=== PATIENT | male | born 1945 | race Caucasian/White ===

== ENCOUNTER 2023-05-06 06:19 | Outpatient (OUT) | payer MEDICARE, OTHER, SELFPAY ==
[2023-05-06 07:04] LABS: Basophils Absolute Auto 0.1 10^3/uL (0.0-0.1); Basophils Percent Auto 1.3 % (0.2-2.0); Eosinophils Absolute Auto 0.6 10^3/uL (0.0-0.7); Eosinophils Percent Auto 12.3 % (0.9-7.0); Hematocrit 42.1 % (42.0-54.0); Hemoglobin 13.8 g/dL (14.0-18.0); Immature Granulocytes Abs Auto 0.02 10^3/uL (0.00-0.03); Immature Granulocytes Pct Auto 0.4 % (0.0-0.5); Lymphocytes Absolute Auto 0.9 10^3/uL (1.2-3.8); Lymphocytes Percent Auto 19.5 % (20.5-60.0); Mean Corpuscular HGB Conc 32.8 g/dL (29.9-35.2); Mean Corpuscular Hemoglobin 33.8 pg (25.9-34.0); Mean Corpuscular Volume 103.2 fL (80.0-94.0); Mean Platelet Volume 10.4 fL (9.5-13.5); Monocytes Absolute Auto 0.4 10^3/uL (0.3-0.8); Monocytes Percent Auto 9.3 % (1.7-12.0); Neutrophils Absolute Auto 2.7 10^3/uL (1.4-6.5); Neutrophils Percent Auto 57.2 % (43.0-75.0); Platelet Count 182 10^3/uL (150-450); Red Blood Count 4.08 10^6/uL (4.70-6.10); Red Cell Distribution Width 12.1 % (11.0-15.0); White Blood Count 4.7 10^3/uL (4.0-11.0)
[2023-05-06 07:20] LABS: Estimated Average Glucose 160 mg/dL; Glycohemoglobin A1C 7.2 % (4.5-6.2)
[2023-05-06 07:39] LABS: Alanine Aminotransferase 23 U/L (16-63); Albumin Globulin Ratio 1.6; Albumin Level 4.1 g/dL (3.4-5.0); Alkaline Phosphatase 87 U/L (46-116); Anion Gap 14.3; Aspartate Amino Transferase 9 U/L (15-37); BUN Creatinine Ratio 25.3; Bilirubin Total 0.4 mg/dL (0.2-1.0); Calcium 8.9 mg/dL (8.5-10.1); Carbon Dioxide 26.9 mmol/L (21.0-32.0); Chloride 104 mmol/L (98-107); Chol HDL Ratio 2.4; Cholesterol 146 mg/dL (<=200); Estimated GFR (African America >60 (>=60); Estimated GFR (Non-African Ame >60 (>=60); Globulin 2.5 g/dL; Glucose 182 mg/dL (74-106); HDL Cholesterol 62 mg/dL (40-60); Potassium 4.2 mmol/L (3.5-5.1); Sodium 141 mmol/L (136-145); Total Protein 6.6 g/dL (6.4-8.2); Triglycerides 76 mg/dL (<=150); VLDL CHOLESTEROL 15.2 mg/dL
[2023-05-06 07:47] LABS: Prostate Specific Antigen Scrn 2.76 ng/mL (<=4.00)
== END 2023-05-06 06:20 | disposition home or self-care (01) ==
LOC: LAB 06:23
PROVIDERS: PCP Family Medicine; Visit Provider Family Medicine
DX: E11.65 Type 2 diabetes mellitus with hyperglycemia (principal); I10 Essential (primary) hypertension; Z12.5 Encounter for screening for malignant neoplasm of prostate
CPT/HCPCS: 36415; 80053; 80061; 83036; 85025; G0103

== ENCOUNTER 2024-05-12 06:27 | Outpatient (OUT) | payer MEDICARE, OTHER, SELFPAY ==
--- OUTSIDE RECORDS SUMMARY | 2024-05-12 06:32 | XMS_ITS | CCD ---
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[employer] Name Role Phone REQUEST, DR MELGAR LISTED Admitting Unavaila ble REQUEST, DR MELGAR LISTED Attending Unavaila abrahan ROD, DR MISTY Betts Primary Care Unavailable REQUEST, DR MELGAR LISTED Consulting Unavaila ble MARCEL, DR MISTY Betts Admitting Unavailable ROD, DR MISTY Betts Attending Unavailable MARCEL, DR MISTY Betts Primary Care Unavailable ROD, DR MISTY Betts Consulting Unavailable ROD, DR MISTY Betts Admitting Unavailable ROD, DR MISTY Betts Attending Unavailable ROD, DR MISTY Betts Primary Care Unavailable ROD, DR MISTY Betts Consulting Unavailable REQUEST, NONE LISTED Admitting Unavaila ble REQUEST, DR MELGAR LISTED Attending Unavaila ble MARCEL, DR MISTY Betts Primary Care Unavailable Misty Rod Unavailable MISTY ROD Primary Care Physician [phone] Ed GARCIA Attending MISTY Diego Referring Unavailable Ed GARCIA Attending Unavailable Misty Rod MD Primary Care Provider PRISCILLA HEALY Attending Unavailable PRISCILLA HEALY Referring Unavailable PRISCILLA HEALY Referring Unavailable PRISCILLA HEALY Referring Unavailable JR. BARNES GEORGE C Attending Unavaila LISBETH Shook Attending Unavailable Misty Rod MD Primary Care Provider David Real DO Attending Provider Allergies Allergy Classification Reported Allergen(s) Allergy Type Date of Onset Reaction(s) Facility (12 sources) atorvastatin; Translations: [atorvastatin] Drug Allergy 8 Muscle pain (finding) [facility] Comment on above: Onset Date: 05/30/20 18 (2 sources) atorvastatin Drug Allergy 4 Other [facility] Medications Current Medications Medication Drug Class(es) Dates Sig (Normalized) Sig (Original) Blood-Glucose Meter (Accu-Chek Guide Glucose Meter) misc (3 sources) Start: 09-06-2023 Blood-Glucose Meter (Accu-Chek Guide Glucose Meter) misc Active 0 .Route 1 September 05, 2023 11:00pm As directed Start: 09-06-2023 Blood-Glucose Meter (Accu-Chek Guide Glucose Meter) mis Active 0 .Route 1 September 06, 2023 12:00am As directed cholecalciferol 0.025 mg oral capsule (3 sources) Vitamin D Start: 01-14-2018 take 1 capsule by mouth once daily Cholecalciferol (Vitamin D3) (Vitamin D3) 1,000 unit Capsule Active 1000 UNIT PO Daily January 13, 2018 11:00pm empagliflozin 10 mg oral tablet (2 sources) Sodium-Glucose Cotransporter 2 Inhibitor Start: 05-08-2024 take 1 tablet by mouth once daily in the morning Empagliflozin (Jardiance) 10 mg tablet Active 10 MG PO Every morning May 08, 2024 12:00am Start: 01-21-2024 take 1 mg by mouth o nce daily in the morning Jardiance 10 mg oral tablet mg tab(s), Oral, qAM, Refills(s) 0 Start Date: 01/21/24 Status: Ordered FreeStyle Lite Test (7 sources) Start: 11-07-2021 FreeStyle Lite Test FreeStyle Lite Test , 1 (one) Each daily - E11.65 # 100, 11/07/2021, Ref. x3. Active In Vitro daily - E11.65 for 0 E11.65 *Pick strength-form from [employer] for eRX* October, Active FreeStyle Lite Test - (7 sources) FreeStyle Lite T est - USE DIRECTED ONCE DAILY for 90 Active FreeStyle System (7 sources) Start: 07-12-2020 FreeStyle Syst em FreeStyle System , 1 (one) Kit test once daily # 1, 07/12/2020, No Refill. Active test once daily for 0 meter Jun, Active glyBURIDE 5 mg oral tablet (19 sources) Sulfonylurea Start: 01-17-2024 GlyBURIDE (Eqv -DiaBeta) 5 mg oral tablet 360 tab(s), 0 Refill(s), Refills(s) 0 Start Date: 01/17/24 Status: Ordered Start: 10-28-2023 End: 02-22-2024 Glyburide 5 mg tablet Active 0 .ROUTE .COMPLEX 360 February 22, 2024 12:09pm TAKE 2 TABLETS TWICE A DAY Start: 12-29-2021 take 1 tablet by melodie th twice daily glyBURIDE 5MG glyBURIDE 5MG, 2 (two) Tablet two times daily # 0, 12/29/2021, No Refill. Active Oral two times daily for 0 *Pick strength-form from [employer] for eRX* Dec, Active Start: 01-14-2018 End: 10-28-2023 take 2 tablets by mouth twice daily Glyburide 5 mg Tablet Discontinued 10 MG PO Twice daily January 13, 2018 11:00pm October 28, 2023 7:42am Start: 01-14-2018 End: 10-28-2023 take 10 mg by mouth twice daily Glyburide Discontinued 10 MG PO Twice daily January 14, 2018 12:00am October 28, 2023 8:42am hydrALAZINE hydrochloride 50 mg oral tablet (16 sources) Arteriolar Vasodilator Start: 02-09-2024 Hydralazine 50 mg tablet Active 0 .ROUTE .COMPLEX 180 February 09, 2024 7:27am TAKE 1 TABLET TWICE A DAY Start: 01-14-2018 End: 02-09-2024 take 1 tablet by mouth twice daily Hydralazine 50 mg Tablet Discontinued 50 MG PO Twice daily January 13, 2018 11:00pm February 09, 2024 7:27am take 1 tablet by melodie every twelve hours hydrALAZINE (Apresoline) 50 MG tablet Take 50 mg by mouth every 12 (twelve) hours. Active labetalol hydrochloride 200 mg oral tablet (14 sources) beta-Adrenergic Yanely Start: 01-17-2024 labeta lol 200 mg Tab 360 tab(s), 0 Refill(s), Refills(s) 0 Start Date: 01/17/24 Status: Ordered Start: 01-14-2018 take 2 tablets by mo [facility] twice daily Labetalol 200 mg Tablet Active 400 MG PO Twice daily January 13, 2018 11:00pm Start: 01-14-2018 take 400 mg by mouth twice chencho ly Labetalol Active 400 MG PO Twice daily January 14, 2018 12:00am take 1 tablet by melodie th every twelve hours labetalol (Normodyne) 200 MG tablet Take 200 mg by mouth every 12 (twelve) hours. Active lisinopril 40 mg oral tablet (13 sources) Angiotensin Converting Enzyme Inhibitor Start: 11-23-2023 take 1 tablet by mouth once daily Lisinopril 40 mg tablet Active 40 MG PO Daily November 22, 2023 11:00pm Lisinopril 40 MG TAKE 1 TABLET DAILY for 90 days Active metFORMIN hydrochloride 1000 mg / SITagliptin 50 mg oral tablet (14 sources) Biguanide, Dipeptidyl Peptidase 4 Inhibitor Start: 05-27-2022 take 50-1000 mg by mouth twice daily Janumet 50-1,000mg Janumet 50-1,000mg, 1 (one) Tablet two times daily # 180, 05/27/2022, Ref. x3. Active oral two times daily for 90 *Pick strength-form from [employer] for eRX* May, Active Start: 01-14-2018 End: 05-08-2024 take 50-1000 mg by mouth twice daily Sitagliptin Phos-Metformin (Janumet) 50-1,000 mg Tablet Discontinued 50 - 1000 MG PO Twice daily January 13, 2018 11:00pm May 08, 2024 11:51am take 1 tablet by melodie th every twelve hours SITagliptin-metFORMIN (Janumet) 50-1000 MG tablet Take 1 tablet by mouth every 12 (twelve) hours. Active pioglitazone 15 mg oral tablet (20 sources) Peroxisome Proliferator Receptor alpha Agonist, Peroxisome Proliferator Receptor gamma Agonist, Thiazolidinedione Start: 01-17-2024 pioglitazone 15 mg Tab 90 EA, 0 Refill(s), TAKE 1 TABLET BY MOUTH EVERY DAY, Refills(s) 0 Start Date: 01/17/24 Status: Ordered Start: 09-13-2023 End: 03-08-2024 take 1 tablet by mouth once daily Pioglitazone 15 mg tablet Discontinued 0 .ROUTE .COMPLEX 90 December 09, 2023 7:44am March 08, 2024 12:38pm TAKE 1 TABLET BY MOUTH EVERY DAY Start: 06-18-2021 End: 09-13-2023 take 1 tablet by mouth once daily in the morning Pioglitazone 15 mg tablet Discontinued 15 MG PO Every morning June 18, 2021 12:00am September 13, 2023 2:16pm polyethylene glycol 3350 18589 mg powder for oral solution (3 sources) Osmotic Laxative polyethylene gl ycol, PEG, 3350 (MiraLax) 17 GM/SCOOP powder Take 17 g by mouth in the morning. Active rosuvastatin calcium 20 mg oral tablet (14 sources) HMG-CoA Reductase Inhibitor Start: 8 End: 4 take 1 tablet by mouth once daily at bedtime Rosuvastatin 20 mg Tablet Active 20 MG PO Daily at bedtime January 13, 2018 11:00pm Saxagliptin-Metformin 5-1,000 mg tablet, ER multiphase 24 hr (1 source) Start: 4 take 1 tablet by mouth once daily Saxagliptin-Metformin 5-1,000 mg tablet, ER multiphase 24 hr Active 1 TAB PO Daily May 08, 2024 12:00am simvastatin 5 mg oral tablet (2 sources) HMG-CoA Reductase Inhibitor take 1 tablet by mouth at bedtime simvastatin (Zocor) 5 MG tablet Take 5 mg by mouth at bedtime Active Completed/Discontinued Medications Medication Drug Class(es) Dates Sig (Normalized) Sig (Original) acetaminophen 500 mg oral tablet (3 sources) Start: 01-29-2018 End: 06-18-2021 take 1 tablet by mouth every six hours Acetaminophen (Mapap Extra Strength) 500 mg Tablet Discontinued 500 MG PO Q6H 0 January 28, 2018 11:00pm June 18, 2021 11:29am acetaminophen 325 mg / oxyCODONE hydrochloride 5 mg oral tablet (9 sources) Opioid Agonist Start: 07-04-2021 End: 04-25-2024 take 1 tablet by mouth every six hours as needed for pain Oxycodone-Acetamino phen (Percocet) 5-325 mg tablet Discontinued 1 TAB PO Q6H as needed for left hip pain 15 01July 04, 2021 November 02, 2023 9:06am Start: 01-29-2018 End: 06-18-2021 take 1 tablet by mouth every three hours as needed for pain Oxycodone-Acetaminophen 5-325 mg Tablet Discontinued 1 TAB PO Q3H as needed for Pain scale 1-5 0 January 28, 2018 11:00pm June 18, 2021 11:30am ascorbic acid 500 mg oral tablet (3 sources) Vitamin C Start: 06-18-2021 End: 05-08-2024 take 1 tablet by mouth once daily Ascorbic Acid (Vitamin C) (Vitamin C) 500 mg Tablet Discontinued 500 MG PO Daily June 18, 2021 12:00am May 08, 2024 11:21am aspirin 81 mg delayed release oral tablet (6 sources) Platelet Aggregation Inhibitor, Nonsteroidal Anti-inflammatory Drug Start: 01-29-2018 End: 04-25-2024 take 1 tablet by mouth twice daily Aspirin 81 mg Tablet,Delayed Release (Dr/Ec) Discontinued 81 MG PO Twice daily 0 January 28, 2018 11:00pm June 18, 2021 11:29am dapagliflozin 10 mg oral tablet (20 sources) Sodium-Glucose Cotransporter 2 Inhibitor Start: 01-14-2018 End: 05-08-2024 take 1 tablet by mouth once daily in the morning Dapagliflozin Propanediol (Farxiga) 10 mg tablet Discontinued 10 MG PO Every morning November 23, 2023 12:50pm May 08, 2024 11:51am take 5 mg by mouth once daily da pagliflozin (Farxiga) 5 MG Take 5 mg by mouth 1 (one) time each day at the same time. Active hydrOXYzine pamoate 50 mg oral capsule (3 sources) Antihistamine Start: 01-29-2018 End: 06-18-2021 take 1 capsule by mouth every six hours as needed for muscle spasms Hydroxyzine Pamoate 50 mg Capsule Discontinued 50 MG PO Q6H as needed for Muscle Spasm 0 January 28, 2018 11:00pm June 18, 2021 11:33am HYLAN G-F 20 (7 sources) Start: 10-23-2016 Synvisc October, 6 mL methylPREDNISolone (7 sources) Corticosteroid Start: 09-21-2016 Depo-Medrol 40 mg Sep, 1 mL naproxen sodium 220 mg oral tablet (7 sources) Nonsteroidal Anti-inflammatory Drug take 1 tablet by mouth every twelve hours Aleve 220 MG 1 tablet as needed Orally every 12 hrs Not-Taking/PRN [place] 5-Wqt-Wen-Fish Oil (Fish Oil) 1,000 mg (120 mg-180 mg) Capsule (3 sources) Start: 01-14-2018 End: 06-18-2021 take 1 capsule by mouth once daily [place] 6-Phr-Rcf-Fish Oil (Fish Oil) 1,000 mg (120 mg-180 mg) Capsule Discontinued 1000 MG PO Daily January 13, 2018 11:00pm June 18, 2021 11:33am Start: 01-14-2018 End: 06-18-2021 take 1 capsule by mouth once daily [place] 1-Wzh-Lvv-Fish Oil (Fish Oil) 1,000 mg (120 mg-180 mg) Capsule Discontinued 1000 MG PO Daily January 14, 2018 12:00am June 18, 2021 12:33pm quinapril 40 mg oral tablet (13 sources) Angiotensin Converting Enzyme Inhibitor Start: 01-14-2018 End: 04-25-2024 take 1 tablet by mouth once daily at bedtime Quinapril 40 mg Tablet Discontinued 40 MG PO Daily at bedtime January 13, 2018 11:00pm November 23, 2023 12:27pm Zinc (3 sources) Start: 06-18-2021 End: 11-23-2023 take 1 tablet by mouth once daily Zinc 50 mg Tablet Discontinued 50 MG PO Daily June 18, 2021 12:00am November 23, 2023 12:27pm Start: 06-18-2021 End: 11-23-2023 take 50 mg by mouth once daily Zinc Discontinued 50 MG PO Daily June 18, 2021 1:00am November 23, 2023 1:27pm Problems Active Problems Problem Classification Problem Date Documented Date Episodic/Chronic Abdominal hernia (1 source) Hiatal hernia 01-17-2024 Episodic Diabetes mellitus with complications (16 sources) Type 2 diabetes mellitus with hyperglycemia; Translations: [Type 2 diabetes mellitus] Onset: 08-13-2022 Chronic Diabetes mellitus without complication (4 sources) Type 2 diabetes mellitus; Translations: [Diabetes mellitus] Onset: 04-19-2023 01-17-2024 Chronic Disorders of lipid metabolism (13 sources) Hyperlipidemia, unspecified; Translations: [Hypercholesterolemia] Onset: 04-02-2022 Chronic Esophageal disorders (1 source) Gastroesophageal reflux disease 01-17-2024 Chronic Essential hypertension (20 sources) Essential (primary) hypertension; Translations: [Essential hypertension] Onset: 04-04-2022 Chronic Hyperplasia of prostate (8 sources) Benign prostatic hyperplasia; Translations: [Benign prostatic hyperplasia without lower urinary tract symptoms] Onset: 01-21-2024 Chronic Open wounds of extremities (4 sources) Laceration of left ring finger; Translations: [Laceration without foreign body of left ring finger without damage to nail, initial encounter] 11-02-2023 Episodic Osteoarthritis (14 sources) Osteoarthritis of hip; Translations: [Unilateral primary osteoarthritis, right hip] Onset: 04-19-2023 01-17-2024 Chronic Other aftercare (7 sources) Patient encounter status; Translations: [Aftercare following joint replacement surgery] Chronic Other connective tissue disease (7 sources) History of total hip arthroplasty; Translations: [Presence of right artificial hip joint] Chronic Other ear and sense organ disorders (10 sources) Asymmetrical sensorineural hearing loss; Translations: [Unspecified sensorineural hearing loss] Onset: 04-19-2023 04-19-2023 Chronic Other ear and sense organ disorders (3 sources) Hearing loss; Translations: [Unspecified hearing loss, unspecified ear] Onset: 04-19-2023 04-19-2023 Chronic Other nervous system disorders (10 sources) Chronic pain; Translations: [Other chronic pain] Onset: 04-19-2023 04-19-2023 Chronic Other nervous system disorders (10 sources) Difficulty walking; Translations: [Difficulty in walking, not elsewhere classified] Onset: 04-19-2023 04-19-2023 Chronic Other non-epithelial cancer of skin (1 source) Malignant neoplasm of skin 01-17-2024 Episodic Other non-traumatic joint disorders (7 sources) Pain in left knee; Translations: [Pain in left knee] Episodic Other non-traumatic joint disorders (3 sources) Anterior knee pain; Translations: [Pain in right knee] 06-02-2023 Episodic Comment on above: Problem List clean-u p per request of Phys. EHR Cmte Other non-traumatic joint disorders (1 source) Mass of shoulder region; Translations: [Other specified joint disorders, right shoulder] 05-11-2024 Episodic Other non-traumatic joint disorders (1 source) Pain in left shoulder; Translations: [Left shoulder pain] 05-10-2024 Episodic Other non-traumatic joint disorders (1 source) Other specified joint disorders, right shoulder; Translations: [Other symptoms referable to joint, shoulder region] 05-11-2024 Episodic Other screening for suspected conditions (not mental disorders or infectious disease) (7 sources) Encounter for screening for malignant neoplasm of prostate; Translations: [Raised prostate specific antigen] Onset: 01-21-2024 Episodic Otitis media and related conditions (8 sources) Postmastoidectomy complication; Translations: [Other disorders following mastoidectomy, unspecified ear] Onset: 04-19-2023 04-19-2023 Episodic Residual codes; unclassified (1 source) Family history of cancer; Translations: [Family history of malignant neoplasm of prostate] Onset: 01-21-2024 Episodic Residual codes; unclassified (1 source) Family history of prostate cancer 01-21-2024 Episodic Past or Other Problems Problem Classification Problem Date Documented Da te Episodic/Chronic Other connective tissue disease (17 sources) History of total knee arthroplasty; Translations: [Presence of left artificial knee joint] Onset: 04-19-2023 Resolved: 04-19-2023 04-19-2023 Chronic Other ear and sense organ disorders (10 sources) Bilateral tinnitus; Translations: [Tinnitus, bilateral] Onset: 04-19-2023 04-19-2023 Episodic Other ear and sense organ disorders (3 sources) Impacted cerumen in left ear; Translations: [Impacted cerumen, left ear] Onset: 04-21-2023 04-21-2023 Episodic Other non-traumatic joint disorders (3 sources) Pain in left knee; Translations: [Pain in joint, lower leg] Onset: 04-19-2023 04-19-2023 Episodic Results Test Name Value Interpretation Reference Range Facility No Panel Informationon 10-31 Prostate Specific Antigen Screen 3.74 ng/mL <=4.00 [facility] MR FEMUR RIGHT W AND WO IV C [facility] 09-02-2023 MR FEMUR RIGHT W AND WO IV CONTRAST MR FEMUR RIGHT W AND WO IV CONTRAST HISTORY: Possible bone mass. TECHNIQUE: Routine MRI of the right femur, with and without contrast. Given 20 mL of intravenous ProHance. COMPARISON: Radiographs 08/30/2023, 08/21/2022, 08/22/2021. RESULT: No evidence for fracture or pathologic marrow infiltration. Small area of cortical thickening involving the medial cortex of the distal femur diaphysis suggestive of chronic process, could relate to remote healed fracture, prior stress reaction, etc. This appears unchanged compared to the radiographs from 2023 and 2022. No associated soft tissue mass. Artifact from right knee arthroplasty. Partially imaged artifact within the right proximal femur. No suspicious enhancement after contrast. Visualized tendons appear intact. Visualized musculature unremarkable. Subcutaneous tissues unremarkable. IMPRESSION: No suspicious findings. No suspicious enhancement. ELECTRONICALLY SIGNED BY: Dewey Paz MD Normal Not Available CBC AUTO DIFFon 08-10-2022 BASO # 0.1 103/ul Normal 0.0-0.1 [facility] Comment on above: Performed By: #### C BC #### [facility] [address] [place] [address] Dr. Monique Sewell Basophils/100 WBC (Bld) 1.3 % Normal 0.2-2.0 [facility] Comment on above: Performed By: #### C BC #### [facility] [address] [place] [address] Dr. Monique Sewell EO # 0.2 103/ul Normal 0.0-0.7 [facility] Comment on above: Performed By: #### C BC #### [facility] [address] [place] [address] Dr. Monique Sewell Eosinophils/100 WBC (Bld) 4.8 % Normal 0.9-7.0 [facility] Comment on above: Performed By: #### C BC #### [facility] [address] [place] [address] Dr. Monique Sewell Erythrocyte distribution width (RBC) [Ratio] 12.1 % Normal 11.0-15.0 [facility] Comment on above: Performed By: #### C BC #### [facility] [address] [place] [address] Dr. Monique Sewell Hematocrit (Bld) [Volume fraction] 40.8 % Critically low 42.0-54.0 [facility] Comment on above: Performed By: #### C BC #### [facility] [address] [place] [address] Dr. Monique Sewell Hemoglobin (Bld) [Mass/Vol] 13.9 g/dL Critically low 14.0-18.0 [facility] Comment on above: Performed By: #### C BC #### [facility] [address] [place] [address] Dr. Monique Sewell IG # 0.01 10e3/ul Normal 0.00-0.03 [facility] Comment on above: Performed By: #### C BC #### [facility] [address] [place] [address] Dr. Monique Sewell IG % 0.3 % Normal 0.0-0.5 [facility] Comment on above: Performed By: #### C BC #### [facility] [address] [place] [address] Dr. Monique Sewell LYMPH # 1.1 103/ul Critically low 1.2-3.8 [facility] Comment on above: Performed By: #### C BC #### [facility] [address] [place] [address] Dr. Monique Sewell Lymphocytes/100 WBC (Bld) 26.9 % Normal 20.5-60.0 [facility] Comment on above: Performed By: #### C BC #### [facility] [address] [place] [address] Dr. Monique Sewell MANUAL DIFF REQ NO [facility] Comment on above: Performed By: #### C BC #### [facility] [address] [place] [address] Dr. Monique Sewell MCH (RBC) [Entitic mass] 33.9 pg Normal 25.9-34.0 [facility] Comment on above: Performed By: #### C BC #### [facility] [address] [place] [address] Dr. Monique Sewell MCHC (RBC) [Mass/Vol] 34.1 g/dL Normal 29.9-35.2 [facility] Comment on above: Performed By: #### C BC #### [facility] [address] [place] [address] Dr. Monique Sewell MCV (RBC) [Entitic vol] 99.5 fL Critically high 80.0-94.0 [facility] Comment on above: Performed By: #### C BC #### [facility] [address] [place] [address] Dr. Monique Sewell MONO # 0.4 103/ul Normal 0.3-0.8 [facility] Comment on above: Performed By: #### C BC #### [facility] [address] [place] [address] Dr. Monique Sewell Monocytes/100 WBC (Bld) 10.1 % Normal 1.7-12.0 [facility] Comment on above: Performed By: #### C BC #### [facility] [address] [address] [address] Monique Sewell NEUT # 2.3 103/ul Normal 1.4-6.5 [facility] Comment on above: Performed By: #### C BC #### [facility] [address] [place] [address] Dr. Monique Sewell Neutrophils/100 WBC (Bld) 56.6 % Normal 43.0-75.0 [facility] Comment on above: Performed By: #### C BC #### [facility] [address] [place] [address] Dr. Monique Sewell Platelet mean volume (Bld) [Entitic vol] 10.5 fL Normal 9.5-13.5 [facility] Comment on above: Performed By: #### C BC #### [facility] [address] [place] [address] Dr. Monique Sewell PLT 170 103/ul Normal 150-450 [facility] Comment on above: Performed By: #### C BC #### [facility] [address] [place] [address] Dr. Monique Sewell RBC 4.10 106/ul Critically low 4.70-6.10 [facility] Comment on above: Performed By: #### C BC #### [facility] [address] [place] [address] Dr. Monique Sewell WBC 4.0 103/ul Normal 4.0-11.0 [facility] Comment on above: Performed By: #### C BC #### [facility] [address] [place] [address] Dr. Monique Sewell GLYCOHEMOGLOBIN A1Con 2022 ADA RECOMMENDATION SEE BELOW Normal [facility] Comment on above: Result Comment: ADA RECOMMENDED LIMIT 4.0 - 6.0 ADA THERAPEUTIC TARGET < 7.0 ACTION SUGGESTED > 7.0 Performed By: #### A 1C #### [facility] [address] [place] [address] Dr. Monique Sewell Glucose [Mass/Vol] 143 mg/dL Normal [facility] Comment on above: Performed By: #### A 1C #### [facility] [address] [place] [address] Dr. Monique Sewell HbA1c (Bld) [Mass fraction] 6.6 % Critically high 4.5-6.2 [facility] Comment on above: Performed By: #### A 1C #### [facility] [address] [place] [address] Dr. Monique Sewell PROF 14(COMP METB)on 023 Albumin [Mass/Vol] 4.2 g/dL Normal 3.4-5.0 [facility] Comment on above: Performed By: #### C MP #### [facility] [address] [place] [address] Dr. Monique Sewell Albumin/Globulin [Mass ratio] 1.7 {ratio} Normal [facility] Comment on above: Performed By: #### C MP #### [facility] [address] [place] [address] Dr. Monique Sewell ALP [Catalytic activity/Vol] 87 U/L Normal 46-116 [facility] Comment on above: Performed By: #### C MP #### [facility] [address] [place] [address] Dr. Monique Sewell ALT [Catalytic activity/Vol] 23 U/L Normal 16-63 [facility] Comment on above: Performed By: #### C MP #### [facility] [address] [place] [address] Dr. Monique Sewell Anion gap [Moles/Vol] 10.9 mmol/L Normal [facility] Comment on above: Performed By: #### C MP #### [facility] [address] [place] [address] Dr. Monique Sewell AST [Catalytic activity/Vol] 18 U/L Normal 15-37 [facility] Comment on above: Performed By: #### C MP #### [facility] [address] [address] [address] Monique Sewell Bilirubin [Mass/Vol] 0.5 mg/dL Normal 0.2-1.0 [facility] Comment on above: Performed By: #### C MP #### [facility] [address] [address] [address] Monique Sewell Calcium [Mass/Vol] 9.3 mg/dL Normal 8.5-10.1 [facility] Comment on above: Performed By: #### C MP #### [facility] [address] [address] [address] Monique Sewell Chloride [Moles/Vol] 104 mmol/L Normal 98-107 [facility] Comment on above: Performed By: #### C MP #### [facility] [address] [address] [address] Monique Sewell CO2 [Moles/Vol] 29.3 mmol/L Normal 21.0-32.0 [facility] Comment on above: Performed By: #### C MP #### [facility] [address] [place] [address] Dr. Monique Sewell Creatinine [Mass/Vol] 0.91 mg/dL Normal 0.70-1.30 [facility] Comment on above: Performed By: #### C MP #### [facility] [address] [address] [address] Monique Sewell EGFR-AF SWISS >60 Normal >=60 [facility] Comment on above: Performed By: #### C MP #### [facility] [address] [address] [address] Monique Sewell EGFR-NON AF SWISS >60 Normal >=60 [facility] Comment on above: Performed By: #### C MP #### [facility] [address] [place] [address] Dr. Monique Sewell Globulin (S) [Mass/Vol] 2.4 g/dL Normal [facility] Comment on above: Performed By: #### C MP #### [facility] [address] [address] [address] Monique Sewell Glucose [Mass/Vol] 146 mg/dL Critically high 74-106 [facility] Comment on above: Performed By: #### C MP #### [facility] [address] [address] [address] Monique Sewell Potassium [Moles/Vol] 4.2 mmol/L Normal 3.5-5.1 [facility] Comment on above: Performed By: #### C MP #### [facility] [address] [address] [address] Monique Sewell Protein [Mass/Vol] 6.6 g/dL Normal 6.4-8.2 [facility] Comment on above: Performed By: #### C MP #### [facility] [address] [address] [address] Monique Sewell Sodium [Moles/Vol] 140 mmol/L Normal 136-145 [facility] Comment on above: Performed By: #### C MP #### [facility] [address] [address] [address] Monique Sewell Urea nitrogen [Mass/Vol] 20.0 mg/dL Critically high 7.0-18.0 [facility] Comment on above: Performed By: #### C MP #### [facility] [address] [address] [address] Monique Sewell Urea nitrogen/Creatinine [Mass ratio] 22.0 mg/mg Normal [facility] Comment on above: Performed By: #### C MP #### [facility] [address] [address] [address] Monique Sewell CBC AUTO DIFFon 04-02-2022 BASO # 0.0 103/ul Normal 0.0-0.1 [facility] Comment on above: Performed By: #### C BC #### [facility] [address] [address] [address] Monique Sewell Basophils/100 WBC (Bld) 0.8 % Normal 0.2-2.0 [facility] Comment on above: Performed By: #### C BC #### [facility] [address] [place] [address] Dr. Monique Sewell EO # 0.4 103/ul Normal 0.0-0.7 [facility] Comment on above: Performed By: #### C BC #### [facility] [address] [place] [address] Dr. Monique Sewell Eosinophils/100 WBC (Bld) 8.8 % Critically high 0.9-7.0 [facility] Comment on above: Performed By: #### C BC #### [facility] [address] [place] [address] Dr. Mnoique Sewell Erythrocyte distribution width (RBC) [Ratio] 12.3 % Normal 11.0-15.0 [facility] Comment on above: Performed By: #### C BC #### [facility] [address] [place] [address] Dr. Monique Sewell Hematocrit (Bld) [Volume fraction] 41.2 % Critically low 42.0-54.0 [facility] Comment on above: Performed By: #### C BC #### [facility] [address] [place] [address] Dr. Monique Sewell Hemoglobin (Bld) [Mass/Vol] 13.5 g/dL Critically low 14.0-18.0 [facility] Comment on above: Performed By: #### C BC #### [facility] [address] [place] [address] Dr. Monique Sewell IG # 0.02 10e3/ul Normal 0.00-0.03 [facility] Comment on above: Performed By: #### C BC #### [facility] [address] [place] [address] Dr. Monique Sewell IG % 0.4 % Normal 0.0-0.5 [facility] Comment on above: Performed By: #### C BC #### [facility] [address] [place] [address] Dr. Monique Sewell LYMPH # 1.3 103/ul Normal 1.2-3.8 [facility] Comment on above: Performed By: #### C BC #### [facility] [address] [address] [address] Monique Sewell Lymphocytes/100 WBC (Bld) 25.8 % Normal 20.5-60.0 [facility] Comment on above: Performed By: #### C BC #### [facility] [address] [place] [address] Dr. Monique Sewell MANUAL DIFF REQ NO Normal [facility] Comment on above: Performed By: #### C BC #### [facility] [address] [address] [address] Monique Sewell MCH (RBC) [Entitic mass] 33.5 pg Normal 25.9-34.0 [facility] Comment on above: Performed By: #### C BC #### [facility] [address] [place] [address] Dr. Monique Sewell MCHC (RBC) [Mass/Vol] 32.8 g/dL Normal 29.9-35.2 [facility] Comment on above: Performed By: #### C BC #### [facility] [address] [place] [address] Dr. Monique Sewell MCV (RBC) [Entitic vol] 102.2 fL Critically high 80.0-94.0 [facility] Comment on above: Performed By: #### C BC #### [facility] [address] [place] [address] Dr. Monique Sewell MONO # 0.5 103/ul Normal 0.3-0.8 [facility] Comment on above: Performed By: #### C BC #### [facility] [address] [place] [address] Dr. Monique Sewell Monocytes/100 WBC (Bld) 9.2 % Normal 1.7-12.0 [facility] Comment on above: Performed By: #### C BC #### [facility] [address] [place] [address] Dr. Monique Sewell NEUT # 2.7 103/ul Normal 1.4-6.5 [facility] Comment on above: Performed By: #### C BC #### [facility] [address] [place] [address] Dr. Monique Sewell Neutrophils/100 WBC (Bld) 55.0 % Normal 43.0-75.0 [facility] Comment on above: Performed By: #### C BC #### [facility] [address] [address] [address] Monique Sewell Platelet mean volume (Bld) [Entitic vol] 10.3 fL Normal 9.5-13.5 [facility] Comment on above: Performed By: #### C BC #### [facility] [address] [address] [address] Monique Sewell PLT 191 103/ul Normal 150-450 [facility] Comment on above: Performed By: #### C BC #### [facility] [address] [address] [address] Monique Sewell RBC 4.03 106/ul Critically low 4.70-6.10 [facility] Comment on above: Performed By: #### C BC #### [facility] [address] [address] [address] Monique Sewell WBC 4.9 103/ul Normal 4.0-11.0 [facility] Comment on above: Performed By: #### C BC #### [facility] [address] [address] [address] Monique Sewell GLYCOHEMOGLOBIN A1Con 2021 ADA RECOMMENDATION SEE BELOW Normal [facility] Comment on above: Result Comment: ADA RECOMMENDED LIMIT 4.0 - 6.0 ADA THERAPEUTIC TARGET < 7.0 ACTION SUGGESTED > 7.0 Performed By: #### A 1C #### [facility] [address] [address] [address] Monique Sewell Glucose [Mass/Vol] 148 mg/dL Normal [facility] Comment on above: Performed By: #### A 1C #### [facility] [address] [address] [address] Monique Sewell HbA1c (Bld) [Mass fraction] 6.8 % Critically high 4.5-6.2 [facility] Comment on above: Performed By: #### A 1C #### [facility] [address] [address] [address] Monique Sewell LIPID PROFILEon 04-02-2022 CHOL-HDL RATIO NORM SEE BELOW Normal [facility] Comment on above: Result Comment: 3.3 - 4.4 LOW RISK 4.4 - 7.1 AVERAGE RISK 7.1 - 11.0 MODERATE RISK >11.0 HIGH RISK Performed By: #### L IPID, CMP #### [facility] [address] [address] [address] Monique Sewell Cholesterol [Mass/Vol] 135 mg/dL Normal <=200 [facility] Comment on above: Performed By: #### L IPID, CMP #### [facility] [address] [address] [address] Monique Sewell Cholesterol in HDL [Mass/Vol] 79 mg/dL Critically high 40-60 [facility] Comment on above: Performed By: #### L IPID, CMP #### [facility] [address] [place] [address] Dr. Moniuqe Sewell Cholesterol in LDL [Mass/Vol] 44.4 mg/dL Normal [facility] Comment on above: Performed By: #### L IPID, CMP #### [facility] [address] [place] [address] Dr. Monique Sewell Cholesterol.total/Ch olesterol in HDL [Mass ratio] 1.7 {ratio} Normal [facility] Comment on above: Performed By: #### L IPID, CMP #### [facility] [address] [place] [address] Dr. Monique Sewell HDL NORMAL > or = 60 mg/dl - LOW CARDIOVASCULAR RISK <40 mg/dl - HIGH CARDIOVASCULAR RISK Normal [facility] Comment on above: Performed By: #### L IPID, CMP #### [facility] [address] [place] [address] Dr. Monique Sewell LDL CALC NORMAL SEE BELOW Normal [facility] Comment on above: Result Comment: <100 mg/dl OPTIMAL 100 - 129 mg/dl NEAR OR ABOVE OPTIMAL 130 - 159 mg/dl BORDERLINE HIGH 160 - 189 mg/dl HIGH >190 mg/dl VERY HIGH Performed By: #### L IPID, CMP #### [facility] [address] [address] [address] Monique Sewell Triglyceride [Mass/Vol] 58 mg/dL Normal <=150 [facility] Comment on above: Performed By: #### L IPID, CMP #### [facility] [address] [address] [address] Monique Sewell VLDL CALC 11.6 mg/dL Normal [facility] Comment on above: Performed By: #### L IPID, CMP #### [facility] [address] [address] [address] Monique Sewell PROF 14(COMP METB)on 022 Albumin [Mass/Vol] 4.1 g/dL Normal 3.4-5.0 [facility] Comment on above: Performed By: #### L IPID, CMP #### [facility] [address] [place] [address] Dr. Monique Sewell Albumin/Globulin [Mass ratio] 1.7 {ratio} Normal [facility] Comment on above: Performed By: #### L IPID, CMP #### [facility] [address] [address] [address] Monique Sewell ALP [Catalytic activity/Vol] 84 U/L Normal 46-116 [facility] Comment on above: Performed By: #### L IPID, CMP #### [facility] [address] [place] [address] Dr. Monique Sewell ALT [Catalytic activity/Vol] 28 U/L Normal 16-63 [facility] Comment on above: Performed By: #### L IPID, CMP #### [facility] [address] [place] [address] Dr. Monique Sewell Anion gap [Moles/Vol] 10.8 mmol/L Normal [facility] Comment on above: Performed By: #### L IPID, CMP #### [facility] [address] [address] [address] Monique Sewell AST [Catalytic activity/Vol] 14 U/L Critically low 15-37 [facility] Comment on above: Performed By: #### L IPID, CMP #### [facility] [address] [address] [address] Monique Sewell Bilirubin [Mass/Vol] 0.4 mg/dL Normal 0.2-1.0 [facility] Comment on above: Performed By: #### L IPID, CMP #### [facility] [address] [place] [address] Dr. Monique Sewell Calcium [Mass/Vol] 9.2 mg/dL Normal 8.5-10.1 [facility] Comment on above: Performed By: #### L IPID, CMP #### [facility] [address] [place] [address] Dr. Monique Sewell Chloride [Moles/Vol] 105 mmol/L Normal 98-107 [facility] Comment on above: Performed By: #### L IPID, CMP #### [facility] [address] [place] [address] Dr. Monique Sewell CO2 [Moles/Vol] 28.3 mmol/L Normal 21.0-32.0 [facility] Comment on above: Performed By: #### L IPID, CMP #### [facility] [address] [place] [address] Dr. Monique Sewell Creatinine [Mass/Vol] 0.92 mg/dL Normal 0.70-1.30 [facility] Comment on above: Performed By: #### L IPID, CMP #### [facility] [address] [place] [address] Dr. Monique Sewell EGFR-AF SWISS >60 Normal >=60 [facility] Comment on above: Performed By: #### L IPID, CMP #### [facility] [address] [place] [address] Dr. Monique Sewell EGFR-NON AF SWISS >60 Normal >=60 [facility] Comment on above: Performed By: #### L IPID, CMP #### [facility] [address] [place] [address] Dr. Monique Sewell Globulin (S) [Mass/Vol] 2.4 g/dL Normal [facility] Comment on above: Performed By: #### L IPID, CMP #### [facility] [address] [address] [address] Monique Sewell Glucose [Mass/Vol] 151 mg/dL Critically high 74-106 [facility] Comment on above: Performed By: #### L IPID, CMP #### [facility] [address] [place] [address] Dr. Monique Sewell Potassium [Moles/Vol] 4.1 mmol/L Normal 3.5-5.1 [facility] Comment on above: Performed By: #### L IPID, CMP #### [facility] [address] [place] [address] Dr. Monique Sewell Protein [Mass/Vol] 6.5 g/dL Normal 6.4-8.2 [facility] Comment on above: Performed By: #### L IPID, CMP #### [facility] [address] [place] [address] Dr. Monique Sewell Sodium [Moles/Vol] 140 mmol/L Normal 136-145 [facility] Comment on above: Performed By: #### L IPID, CMP #### [facility] [address] [place] [address] Dr. Monique Sewell Urea nitrogen [Mass/Vol] 12.0 mg/dL Normal 7.0-18.0 [facility] Comment on above: Performed By: #### L IPID, CMP #### [facility] [address] [place] [address] Dr. Monique Sewell Urea nitrogen/Creatinine [Mass ratio] 13.0 mg/mg Normal [facility] Comment on above: Performed By: #### L IPID, CMP #### [facility] [address] [place] [address] Dr. Monique Sewell GLYCOHEMOGLOBIN A1Con 2021 ADA RECOMMENDATION SEE BELOW Normal [facility] Comment on above: Result Comment: ADA RECOMMENDED LIMIT 4.0 - 6.0 ADA THERAPEUTIC TARGET < 7.0 ACTION SUGGESTED > 7.0 Performed By: #### D ATA1C #### [facility] [address] [place] [address] Dr. Monique Sewell Glucose [Mass/Vol] 157 mg/dL Normal [facility] Comment on above: Performed By: #### D ATA1C #### [facility] [address] [address] [address] Monique Sewell HbA1c (Bld) [Mass fraction] 7.1 % Critically high 4.5-6.2 [facility] Comment on above: Performed By: #### D ATA1C #### [facility] [address] [address] [address] Monique Sewell US Venous, Unilat, Lower Ext Righton 07-11-2021 US Venous, Unilat, Lower Ext Right HISTORY: Calf pain FINDINGS: The deep venous system of the right lower extremity exhibits full compressibility and normal flow augmentation. These specifically include the common femoral, superficial femoral, popliteal and visualization anterior tibialis, posterior tibialis and peroneal veins. No evidence of deep venous thrombosis is present. Greater saphenous vein is patent. Unremarkable popliteal fossa. Complex 1.0 x 2.5 x 2.5 cm fluid collection lateral to the patella, possible postsurgical hematoma/seroma (conceivably bursitis). IMPRESSION: 1. No deep venous thrombosis. 2. Complex fluid collection corresponding with the patient's symptoms, bursitis versus postsurgical hematoma. Report reported and signed by Thom Mendez on 07/11/2021 1239 Normal [facility] Tissue Packer Glucose Poct Glucometerson 0 07-04-2021 Commemt1 Glu2: Cleaned Meter Normal [facility] Comment on above: Result Comment: PERF ORMED BY: [place] [address] PATHOLOGIST DIE ENGRAVER CARMEN NICOLE M.D. Performed By: #### O VALDEMAR TSH, OUTREACH GLYCO, PSA OUTREACH #### [address] Glucose [Mass/Vol] 351 mg/dL Normal [facility] Comment on above: Result Comment: Mart Glucose Reference Range is dependent on time and content of last meal. Glucose of more than 200 mg/dL in a nonstressed, ambulatory subject supports the diagnosis of Diabetes Mellitus. Performed By: #### O JANESEACH TSH, OUTREACH GLYCO, PSA OUTREACH #### [facility] [address] [id number] [facility] Glucose [Mass/Vol] 184 mg/dL Normal [facility] Comment on above: Result Comment: [facility] Glucose Reference Range is dependent on time and content of last meal. Glucose of more than 200 mg/dL in a nonstressed, ambulatory subject supports the diagnosis of Diabetes Mellitus. PERFORMED BY: [facility] [address] [place] [address] PATHOLOGIST DIE ENGRAVER CARMEN NICOLE M.D. Performed By: #### O UTREA TSH, OUTREACH GLYCO, PSA OUTREACH #### [facility] [address] [id number] [facility] Siva 07-04-2021 L Specimen: [id number] Received: 07/04/21 Status: ECHO Ocasio Num: [id number] Spec Type: Surgical Subm Dr: Pedro Barnes Jr, DO Tissues: A Gross Only (R KNEE) Procedures: Level 1 Gross Patient Age/Sex Location Account Attending Physician MooseLele ford 76/M 4N [id number] Pedro Barnes Jr, DO SPEC NUM: [id number] RECD: 07/04/21 STATUS: ECHO OCASIO NUM: [id number] VIDA: 07/04/21 DR: Pedro Barnes Jr, ENTERED: 07/04/[address]: EDWARD TYPE: Surgical DEPT: S ORDERED: Level 1 Gross ORDERED: Level 1 Gross Pathological Diagnosis Bone and soft tissue, right knee, arthroplasty: - Consistent with degenerative joint disease (see Gross Description) Clinical Information Degenerative joint disease, right knee Gross Description Received in formalin labeled with the patient's name, number and bone and tissue right knee are multiple fragments of bone, tibial plateau, femoral condyles, dense philippe meniscus, and fatty yellow tissue aggregating 13.7 x 12.6 x 2.8 cm. The articular surface demonstrates philippe-red superficial erosion and granularity comprising 90% of the articular cartilage. Eburnation is identified comprising 10% of the articular cartilage. Scant osteophyte formation is identified. Sectioning of the bone reveals philippe, focally sclerotic bony cut surfaces with no well-defined masses or lesions identified. No sections are submitted for microscopic evaluation, gross examination only. (FLOR/CECILE) Microscopic Description Gross examination only. [id number] Specimen: [id number] Received: 07/04/21 Status: ECHO Fordepati Num: [id number] Spec Type: Surgical Subm Dr: Pedro Barnes Jr, DO Tissues: A Gross Only (R KNEE) Procedures: Level 1 Gross Patient: Lele Gaspar [id number] (Continued) Signed (signature on file) Carmen Nicole MD 07/04/21 1557 Normal [facility] XR knee RT 2Von 07-04-2021 XR knee RT 2V [address] [address] XRay Report Signed Patient: Lele Gaspar MR#: [id number] : 1945 Acct:[id number] Age/Sex: 76 / M ADM Date: 07/04/21 Loc: Room: 9O4669-9 Type: REG SDC Attending Dr: Pedro Barnes Jr, DO Ordering Provider: Pedro Barnes Jr, DO Date of Service: 07/04/21 XR/XR knee RT 2V: Total or partial knee, do in PACU Copies to: Pedro Barnes Jr, DO Exam: Right knee 2 views. Reason for exam: Postop knee arthroplasty. FINDINGS: Soft tissues demonstrate postoperative changes. Arthroplasty in place without radiographic complication. No acute bony process. XR/XR knee RT 2V IMPRESSION: No hardware complication. Impression dictated by: Thom Hayes Jr., D.O.07/04/2021 12:39 PM Dictation Location: [address] [place] [address] Transcribed By: [facility] 07/04/21 1239 Dictated By: Thom Hayes Jr, DO 07/04/21 1237 Signed By: 07/04/21 1239 Normal [facility] COVID-19 FRMCon 07-02-2021 SARS-CoV-2 (COVID-19) RNA KEYLA+probe Ql (Unsp spec) Negative Normal Negative [facility] Comment on above: Order Comment: Healt hcare Worker?: N Result Comment: Testing for SARS-CoV-2 by RT-PCR This test was developed and its performance characteristics determined by [employer] and validated at the [facility]. This test has not been FDA cleared or approved. This test has been authorized by FDA under an Emergency Use Authorization (EUA). This test has been validated in accordance with the FDA's Guidance Document (Policy for Diagnostics Testing in Laboratories Certified to Perform High Complexity Testing under CLIA prior to Emergency Use Authorization for Coronavirus Disease-2019 during the Public Health Emergency) issued on September 21, 2019. This test is only authorized for the duration of time the declaration that circumstances exist justifying the authorization of the emergency use of in vitro diagnostic tests for detection of SARS-CoV-2 virus and/or diagnosis of COVID-19 infection under section 564(b)(1) of the Act, 21 U.S.C. 360bbb-3(b)(1), unless the authorization is terminated or revoked sooner. PERFORMED BY: [facility] [place] [address] PATHOLOGIST DIE ENGRAVER CARMEN NICOLE M.D. Performed By: #### O UTREACH TSH, OUTREACH GLYCO, PSA OUTREACH #### [facility] [address] [place] [address] A1C with Estimated Average G ansley 06-18-2021 Glucose [Mass/Vol] 163 mg/dL Normal [facility] Comment on above: Result Comment: PERF ORMED BY: [place] [address] PATHOLOGIST DIE ENGRAVER CARMEN NICOLE M.D. Performed By: #### C BC, BMP, A1C WTH eA #### [address] [id number] [facility] HbA1c (Bld) [Mass fraction] 7.3 % High 4.3-5.6 [facility] Comment on above: Result Comment: Incr eased risk for diabetes: 5.7 - 6.4 diabetes: >6.4 glycemic control for adults with diabetes: <7.0 Performed By: #### C BC, BMP, A1C WTH eA #### [place] [id number] [facility] Basic Metabolic Panelon - Calcium [Mass/Vol] 9.4 mg/dL Normal 8.2-10.2 [facility] Comment on above: Result Comment: PERF ORMED BY: [place] [address] PATHOLOGIST DIE ENGRAVER CARMEN NICOLE M.D. Performed By: #### C BC, BMP, A1C WTH eA #### [facility] [address] [place] [address] [place] Chloride [Moles/Vol] 103 mmol/L Normal 95-114 [facility] Comment on above: Performed By: #### C BC, BMP, A1C WTH eA #### [address] CO2 [Moles/Vol] 23.4 mmol/L Normal 22.0-30.0 [facility] Comment on above: Performed By: #### C BC, BMP, A1C WTH eA #### [facility] [address] [place] [address] [place] Creatinine [Mass/Vol] 0.91 mg/dL Normal 0.64-1.27 [facility] Comment on above: Performed By: #### C BC, BMP, A1C WTH eA #### [facility] [address] [place] [address] [place] Estimated GFR ( Leah > 60 Normal [facility] Comment on above: Result Comment: GFR estimated reference range: According to KDOQI guidelines, <60 ml/min/1.73m2 is sufficient to diagnose a patient with chronic kidney disease. Performed By: #### C BC, BMP, A1C WTH eA #### [facility] [address] [place] [address] [place] Estimated GFR (Non- Am > 60 Normal [facility] Comment on above: Performed By: #### C BC, BMP, A1C WTH eA #### [place] [address] [place] Glucose [Mass/Vol] 186 mg/dL High 70-100 [facility] Comment on above: Result Comment: Mart om Glucose Reference Range is dependent on time and content of last meal. Glucose of more than 200 mg/dL in a nonstressed, ambulatory subject supports the diagnosis of Diabetes Mellitus. ADA recommended reference range Performed By: #### C BC, BMP, A1C WTH eA #### [place] [address] [place] Potassium [Moles/Vol] 4.4 mmol/L Normal 3.5-5.1 [facility] Comment on above: Performed By: #### C BC, BMP, A1C WTH eA #### [facility] [address] [place] [id number] [place] Sodium [Moles/Vol] 136 mmol/L Normal 136-146 [facility] Comment on above: Performed By: #### C BC, BMP, A1C WTH eA #### [facility] [address] [place] [id number] [place] Urea nitrogen [Mass/Vol] 14 mg/dL Normal 9-23 [facility] Comment on above: Performed By: #### C BC, BMP, A1C [facility] eA #### [facility] [address] scanogram/leg lengthon CT scanogram/leg length [facility] [place] [address] [place] [id number] Scan Report Signed Patient: Lele Gaspar MR#: [id number] : 1945 Acct:[id number] Age/Sex: 76 / M ADM Date: 06/18/21 Loc: PS Room: Type: [facility] Attending Dr: Pedro Barnes Jr, DO Ordering Provider: Pedro Barnes Jr, DO Date of Service: 06/18/21 CT/CT scanogram/leg length: DJD RT KNEE PRE R TKA Copies to: Pedro Barnes Jr, DO CT scanogram/leg length 06/18/2021. CLINICAL DATA: Plan for right knee replacement. Presurgical evaluation. TECHNIQUE: CT scanogram of the pelvis and bilateral lower extremities was performed. 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 There are degenerative changes at the right knee including joint space narrowing and marginal osteophyte formation in the medial femorotibial compartment. CT/CT scanogram/leg length IMPRESSION: Degenerative changes at the right knee. Impression dictated by: Tj Gold Jr., M.D.06/18/2021 4:29 PM Dictation Location: [place] [address] Transcribed By: [facility] 06/18/211628 Dictated By: Tj Gold Jr, MD 06/18/211626 Signed By: 06/18/211628 Normal [facility] Complete Blood Count Auto Di ffon 06-18-2021 Basophils (Bld) [#/Vol] 0.0 10*3/uL Normal 0.0-0.2 [facility] Comment on above: Result Comment: PERF ORMED BY: [place] [address] PATHOLOGIST DIE ENGRAVER CARMEN NICOLE M.D. Performed By: #### C BC, BMP, A1C WT eA #### [facility] [address] [place] [address] [place] Basophils/100 WBC (Bld) 1.1 % Normal . [facility] Comment on above: Performed By: #### C BC, BMP, A1C WTH eA #### [facility] [address] [place] [address] [place] Eosinophils (Bld) [#/Vol] 0.3 10*3/uL Normal 0.0-0.45 [facility] Comment on above: Performed By: #### C BC, BMP, A1C WTH eA #### [facility] [address] [place] [address] [place] Eosinophils/100 WBC (Bld) 5.6 % Normal . [facility] Comment on above: Performed By: #### C BC, BMP, A1C WTH eA #### [facility] [address] [place] [address] Erythrocyte distribution width (RBC) [Ratio] 12.7 % Normal 12.0-14.8 [facility] Comment on above: Performed By: #### C BC, BMP, A1C WTH eA #### [address] Hematocrit (Bld) [Volume fraction] 41.9 % Normal 38.8-50.0 [facility] Comment on above: Performed By: #### C BC, BMP, A1C WTH eA #### [facility] [address] [place] [address] [place] Hemoglobin (Bld) [Mass/Vol] 14.0 g/dL Normal 13.0-17.0 [facility] Comment on above: Performed By: #### C BC, BMP, A1C WTH eA #### [facility] [address] [place] [address] [place] Lymphocytes (Bld) [#/Vol] 1.0 10*3/uL Normal 1.00-4.8 [facility] Comment on above: Performed By: #### C BC, BMP, A1C WTH eA #### [facility] [address] [place] [address] [place] Lymphocytes/100 WBC (Bld) 23.1 % Normal . [facility] Comment on above: Performed By: #### C BC, BMP, A1C WTH eA #### [facility] [address] [place] [address] MCH (RBC) [Entitic mass] 33.9 pg Normal 27.5-35.2 [facility] Comment on above: Performed By: #### C BC, BMP, A1C WTH eA #### [address] MCV (RBC) [Entitic vol] 101.5 fL High 83.5-101 [facility] Comment on above: Performed By: #### C BC, BMP, A1C WTH eA #### [address] Mean Corpuscular HGB Conc 33.4 g/dL Normal 32.5-35.6 [facility] Comment on above: Performed By: #### C BC, BMP, A1C WTH eA #### [address] Monocytes (Bld) [#/Vol] 0.5 10*3/uL Normal 0.0-0.8 [facility] Comment on above: Performed By: #### C BC, BMP, A1C WTH eA #### [address] Monocytes/100 WBC (Bld) 10.1 % Normal . [facility] Comment on above: Performed By: #### C BC, BMP, A1C WTH eA #### [address] Neutrophils (Bld) [#/Vol] 2.7 10*3/uL Normal 1.8-7.7 [facility] Comment on above: Performed By: #### C BC, BMP, A1C WTH eA #### [address] Neutrophils/100 WBC (Bld) 60.1 % Normal . [facility] Comment on above: Performed By: #### C BC, BMP, A1C WTH eA #### [address] [place] [address] [place] Nucleated RBC/100 WBC (Bld) [Ratio] 0.1 % Normal 0-0.5 [facility] Comment on above: Performed By: #### C SANTHOSH HELTON, A1C WT eA #### [facility] [address] Platelet mean volume (Bld) [Entitic vol] 8.5 fL Normal 6.6-10.1 [facility] Comment on above: Performed By: #### C SUNITHA BMP, [address] eA #### [facility] [address] Platelets (Bld) [#/Vol] 187 10*3/uL Normal 150-450 [facility] Comment on above: Performed By: #### C SANTHOSH HELTON, A1C WT eA #### [facility] [address] RBC (Bld) [#/Vol] 4.13 10*6/uL Normal 3.90-5.60 [facility] Comment on above: Performed By: #### C SANTHOSH HELTON, [address] eA #### [facility] [address] WBC (Bld) [#/Vol] 4.5 10*3/uL Normal 4.5-11.0 [facility] Comment on above: Performed By: #### C SANTHOSH HELTON, [address] eA #### [address] ECG 12 lead ECGon 06-18-2021 ECG 12 lead ECG [facility] [place] [address] [place] [address] Electrocardiograph Report Signed Patient: Lele Gaspar MR#: [id number] : 1945 Acct:[id number] Age/Sex: 76 / M ADM Date: 06/18/21 Loc: Room: Type: [facility] Attending Dr: Pedro Barnes Jr, DO Ordering Provider: Pedro Barnes Jr, DO Date of Service: 06/18/21 ECG/ECG 12 lead ECG: dos 07-04-21 Copies to: Test Reason : Blood Pressure : / mmHG Vent. Rate : 060 BPM Atrial Rate : 060 BPM P-R Int : 190 ms QRS Dur : 148 ms QT Int : 460 ms P-R-T Axes : 040 -54 004 degrees QTc Int : 460 ms Normal sinus rhythm Right bundle branch block Left anterior fascicular block Bifascicular block Abnormal ECG When compared with ECG of 18-JUN-2021 11:09, (Unconfirmed) No significant change was found Confirmed by JANKI BLAND DO ([id number]) on 06/19/2021 1:04:05 PM Referred By: SABRINA Electronically Signed By:JANKI BLAND DO Transcribed By: MUS Signed By Janki Bland DO 06/19 1304 [facility] LeukoReduced RBCon LeukoReduced RBC READY [facility] PST Type and Screenon 2020 ABO and Rh group Nom (Bld) Blood group O Rh(D) positive [facility] Comment on above: Order Comment: Date of Surgery: [id number] # of PRBC units on hold?: 2 Result Comment: PERF ORMED BY: [place] [address] PATHOLOGIST DIE ENGRAVER CARMEN NICOLE M.D. Urinalysison 06-18-2021 Appearance (U) Clear Normal Clear [facility] Comment on above: Order Comment: Name Collection Type:: Clean-Voided Midstream Performed By: #### U A #### [facility] [address] [place] [address] [place] Bilirubin,Urine Negative Normal Negative [facility] Comment on above: Order Comment: Name Collection Type:: Clean-Voided Midstream Performed By: #### U A #### [facility] [address] [place] [address] [place] Color (U) Yellow Normal Yellow [facility] Comment on above: Order Comment: Name Collection Type:: Clean-Voided Midstream Performed By: #### U A #### [address] [place] [address] [place] Glucose Ql (U) >=1000 High Normal [facility] Comment on above: Order Comment: Name Collection Type:: Clean-Voided Midstream Performed By: #### U A #### [address] Ketones Ql (U) Negative Normal Negative [facility] Comment on above: Order Comment: Name Collection Type:: Clean-Voided Midstream Performed By: #### U A #### [address] Leukocyte esterase Test strip Ql (U) Negative Normal Negative [facility] Comment on above: Order Comment: Name Collection Type:: Clean-Voided Midstream Performed By: #### U A #### [address] Nitrite,Urine Negative Normal Negative [facility] Comment on above: Order Comment: Name Collection Type:: Clean-Voided Midstream Performed By: #### U A #### [address] Occult Blood,Urine Negative Normal Negative [facility] Comment on above: Order Comment: Name Collection Type:: Clean-Voided Midstream Result Comment: PERF ORMED BY: [place] [address] PATHOLOGIST DIE ENGRAVER CARMEN NICOLE M.D. Performed By: #### U A #### [place] [address] [place] pH (U) 5.0 [pH] Normal 5.0-9.0 [facility] Comment on above: Order Comment: Name Collection Type:: Clean-Voided Midstream Performed By: #### U A #### [place] [address] [place] Protein,Urine Negative Normal Negative [facility] Comment on above: Order Comment: Name Collection Type:: Clean-Voided Midstream Performed By: #### U A #### [place] [address] [place] Specificy [place],Urine 1.026 Normal 1.001-1.030 [facility] Comment on above: Order Comment: Name Collection Type:: Clean-Voided Midstream Performed By: #### U A #### [address] Urobilinogen,Urine Normal Normal Normal [facility] Comment on above: Order Comment: Name Collection Type:: Clean-Voided Midstream Performed By: #### U A #### [address] Outreach [facility] 08-10-2020 Glucose [Mass/Vol] 171 mg/dL Normal [facility] Comment on above: Result Comment: PERF ORMED BY: [place] [address] PATHOLOGIST DIE ENGRAVER CARMEN NICOLE M.D. Performed By: #### O UTREACH TSH, OUTREACH GLYCO, PSA OUTREACH #### [address] HbA1c (Bld) [Mass fraction] 7.6 % High 4.3-5.6 [facility] Comment on above: Result Comment: Incr eased risk for diabetes: 5.7 - 6.4 diabetes: >6.4 glycemic control for adults with diabetes: <7.0 Performed By: #### O UTREACH TSH, OUTREACH GLYCO, PSA OUTREACH #### [address] [facility] on 08-10-2020 [facility] 1.630 ng/mL Normal 0.000-4.000 [facility] Comment on above: Result Comment: PERF ORMED BY: [place] [address] PATHOLOGIST DIE ENGRAVER CARMEN NICOLE M.D. Performed By: #### O UTREACH TSH, OUTREACH GLYCO, PSA OUTREACH #### [address] Thyroid Stimulating Hormoneo n 08-10-2020 TSH Qn 1.56 m[IU]/L Normal 0.45-5.33 [facility] Comment on above: Result Comment: PERF ORMED BY: [facility] [address] [place] [address] PATHOLOGIST DIE ENGRAVER CARMEN NICOLE M.D. Performed By: #### O UTRJIMENEZ TSH, OUTREACH GLYCO, PSA OUTREACH #### [facility] [address] Vital Signs Date Time Vital Sign Value Performing Clinician Facility 05-08-2024 11:16-0500 Body height 175.26 cm [facility] 05-08-2024 11:16-0500 Body mass index (BMI) [Ratio] 38.2 kg/m2 [facility] 05-08-2024 11:16-0500 Body weight 117.48 kg [facility] 05-08-2024 11:16-0500 Diastolic blood pressure 79 mm[Hg] [facility] 05-08-2024 11:16-0500 Heart rate 63 /min [facility] 05-08-2024 11:16-0500 Systolic blood pressure 157 mm[Hg] [facility] 04-25-2024 09:10-0500 Body height 177.8 cm Lisbeth Solitario MD Work Phone: [facility] 04-25-2024 09:10-0500 Body mass index (BMI) [Ratio] 36.88 kg/m2 Lisbeth Solitario MD Work Phone: [facility] 04-25-2024 09:10-0500 Body weight 116.57 kg Lisbeth Solitario MD Work Phone: [facility] 04-25-2024 09:10-0500 Diastolic blood pressure 60 mm[Hg] Lisbeth Solitario MD Work Phone: [facility] 04-25-2024 09:10-0500 Systolic blood pressure 115 mm[Hg] Lisbeth Solitario MD Work Phone: [facility] 01-21-2024 09:44-0400 Blood Pressure Location Ed GARCIA [facility] 01-21-2024 09:44-0400 Diastolic blood pressure 78 mm[Hg] Ed GARCIA [facility] 01-21-2024 09:44-0400 Heart rate 80 /min Ed GARCIA [facility] 01-21-2024 09:44-0400 Respiratory rate 16 /min Ed GARCIA [facility] 01-21-2024 09:44-0400 Systolic blood pressure 132 mm[Hg] Ed GARCIA [facility] 11-23-2023 13:16-0400 Body height 175.26 cm [facility] 11-23-2023 13:16-0400 Body mass index (BMI) [Ratio] 83.7 kg/m2 [facility] 11-23-2023 13:16-0400 Body weight 257 kg [facility] 11-23-2023 13:16-0400 Diastolic blood pressure 65 mm[Hg] [facility] 11-23-2023 13:16-0400 Heart rate 79 /min [facility] 11-23-2023 13:16-0400 Systolic blood pressure 129 mm[Hg] [facility] 11-02-2023 10:02-0400 Body height 175.26 cm [facility] 11-02-2023 10:02-0400 Body mass index (BMI) [Ratio] 38.1 kg/m2 [facility] 11-02-2023 10:02-0400 Body temperature 97.3 [degF] [facility] 11-02-2023 10:02-0400 Body weight 117.19 kg [facility] 11-02-2023 10:02-0400 Diastolic blood pressure 73 mm[Hg] [facility] 11-02-2023 10:02-0400 Heart rate 69 /min [facility] 11-02-2023 10:02-0400 Respiratory rate 18 /min [facility] 11-02-2023 10:02-0400 SaO2% (BldA) [Mass fraction] 97 % [facility] 11-02-2023 10:02-0400 Systolic blood pressure 142 mm[Hg] [facility] 04-28-2023 11:30-0500 Body height 175.26 cm Misty Rod Other [facility] Other 04-28-2023 11:30-0500 Body mass index (BMI) [Ratio] 37.51 kg/m2 Misty Rod Other [facility] Other 04-28-2023 11:30-0500 Body weight 115.21 kg Misty Rod Other [facility] Other 04-28-2023 11:30-0500 Diastolic blood pressure 67 mm[Hg] Misty Rod Other [facility] Other 04-28-2023 11:30-0500 Systolic blood pressure 164 mm[Hg] Misty Rod Other [facility] Other Encounters Encounter Date Encounter Type Care Provider Facility Start: 07-24-2024 ambulatory Ed Pruitt ty:[facility] [place] Start: 05-11-2024 End: 05-11-2024 ambulatory Misty Rod MD Work Phone: [facility] Work Phone: Start: 05-11-2024 End: 05-11-2024 Patient encounter procedure Misty Rod MD Work Phone: [facility] Work Phone: Start: 05-08-2024 End: 05-08-2024 ambulatory [facility] Work Phone: Start: 05-08-2024 End: 05-08-2024 Patient encounter procedure [facility] Work Phone: Start: 04-25-2024 End: 04-25-2024 Bamlindsay flowscedrick Solitario MD Work Phone: [facility] Start: 04-25-2024 End: 04-25-2024 Bamboo flowsheet Lisbeth Solitario MD Work Phone: [facility] Start: 04-25-2024 End: 04-25-2024 Patient encounter procedure Lisbeth Solitario MD Work Phone: [facility] Comment on above: Encounter for mastoi dectomy cavity debridement, right (Primary Dx) Start: 04-25-2024 End: 04-25-2024 ambulatory LISBETH SOLITARIO Not Available Start: 01-21-2024 End: 01-21-2024 ambulatory MISTY ROD Facility:[facility] Start: 01-21-2024 End: 01-21-2024 Patient encounter procedure Ed GARCIA [facility] Start: 11-24-2023 ambulatory Ed GARCIA Facility :[facility] Start: 11-23-2023 End: 11-23-2023 ambulatory [facility] Work Phone: Start: 11-23-2023 End: 11-23-2023 Patient encounter procedure [facility] Work Phone: Start: 11-02-2023 End: 11-02-2023 Patient encounter procedure [facility] Work Phone: Start: 11-01-2023 Non-patient / Non-visit [facility] Work Phone: Start: 09-15-2023 End: 09-15-2023 ambulatory PEDRO FRANCO Not Available Start: 09-06-2023 Non-patient / Non-visit [facility] Work Phone: Start: 09-02-2023 End: 09-02-2023 ambulatory PRISCILLA HEALY Not Available Start: 08-30-2023 End: 08-30-2023 ambulatory PRISCILLA HEALY Not Available Start: 07-12-2023 End: 07-12-2023 ambulatory Misty Rod Other [facility] Other Start: 07-12-2023 Telephone encounter Misty Rod [facility] Start: 07-07-2023 End: 07-07-2023 ambulatory Misty Rod Other [facility] Other Start: 07-07-2023 Telephone encounter Misty Rod [facility] Start: 06-29-2023 End: 06-29-2023 ambulatory Misty Rod Other [facility] Other Start: 06-29-2023 Telephone encounter Misty Rod [facility] Start: 05-19-2023 End: 05-19-2023 ambulatory Misty Rod Other [facility] Other Start: 05-19-2023 Telephone encounter Misty Rod [facility] Start: 04-28-2023 End: 04-28-2023 ambulatory Misty Rod Other [facility] Other Start: 04-28-2023 Office outpatient vi sit 25 minutes Misty Rod [facility] Start: 10-06-2022 End: 10-07-2022 ambulatory NONE LISTED REQUEST Facility:[facility] Start: 08-10-2022 End: 08-11-[address] MISTY ROD Facility:[facility] Start: 04-02-2022 End: 04-03-[address] MISTY ROD Facility:[facility] Start: 10-13-2021 End: 10-14-2021 ambulatory NONE LISTED REQUEST Facility: Procedures Date Procedure Procedure Detail Performing Clinician Start: 06-18-2021 Antibody screen Comment on above: Order Comment: Date of Surgery: [id number] # of PRBC units on hold?: 2 Result Comment: PERF ORMED BY: [facility] [address] [place] [address] PATHOLOGIST DIE ENGRAVER CARMEN NICOLE M.D. Arthroscopy of knee Ed GARCIA Discectomy of spine Ed GARCIA Mastoidectomy Ed GARCIA Repair of joint of r ight hip Ed GARCIA Tonsillectomy Ed GARCIA Vasectomy Ed GARCIA Plan of Treatment Date Care Activity Detail Author Start: 05-11-2024 Plain X-ray of bilat eral shoulders XR shoulder BI min 2V [facility] Start: 05-11-2024 XR Shoulder - bilate ral Views [facility] Start: 04-25-2024 End: 04-25-2024 Patient encounter procedure 04/25/2024 9:10 AM EST Office Visit [facility] [address] [facility] [address] [place] [id number] Lisbeth Solitario MD [address] [facility] [address] [place], [place] [id number] Arrived [facility] Comment on above: Arrived Start: 02-20-2024 Influenza vaccination Influenza Vacc ine (#1) [facility] Start: 11-23-2023 Patient referral [facility] Work Phone: Start: 02-18-2018 Pneumococcal Vaccine : 65+ Years (2 of 2 - PPSV23 or PCV20) Pneumococcal Vaccine: 65+ Years (2 of 2 - PPSV23 or PCV20) [facility] Comprehensive metabo lic 2000 panel - Serum or Plasma [facility] CT Shoulder - left W O contrast [facility] Microalbumin [Mass/volume] in Urine [facility] Patient referral [facility] Work Phone: [facility] Immunizations Immunization Date Immunization Notes Care Provider Fa cility 11-02-2023 tetanus and diphtheria toxoids, adsorbed, preservative free, for adult use (5 Lf of tetanus toxoid and 2 Lf of diphtheria toxoid) [facility] 05-27-2022 influenza virus vaccine, split virus (incl. purified surface antigen) Misty Rod Other [facility] Other 05-27-2022 influenza virus vaccine, unspecified formulation [facility] 06-03-2021 COVID-19 mRNA-1273 (Moderna) [facility] 04-05-2021 zoster vaccine recombinant Lisbeth Solitario MD Work Phone: [facility] 04-05-2021 zoster vaccine, live Misty Rod Other [facility] 01-03-2021 zoster vaccine recombinant Lisbeth Solitario MD Work Phone: [facility] 01-03-2021 zoster vaccine, live Misty Rod Other [facility] 08-08-2020 COVID-19 mRNA-1273 (Moderna) [facility] 03-31-2017 influenza virus vaccine, split virus (incl. purified surface antigen) Misty Rod Other [facility] Other 03-31-2017 influenza virus vaccine, unspecified formulation [facility] 02-18-2017 pneumococcal conjugate vaccine, 13 valent Misty Rod Other [facility] NEGATED: Highlighted row has not occurred! 7 pneumococcal polysaccharide vaccine, 23 valent Patient Objection Misty Rod Other [facility] Other Payers Date Payer Category Payer Medicare [id number] 2017 Managed Care HMO (unspecified) [employer] [id number] 2011 Medicare MEDICARE [id number] 1959 Medicare [id number] 1959 Self-pay [id number] 1959 Unknown [id number] 1959 Unknown [id number] 1946 Unknown [id number] 2.16.840.1.172560.3.579. 2.593 1946 Unknown [id number] 2.16.840.1.615628.3.579. 2.593 1946 Unknown [id number] 2.16.840.1.198841.3.579. 2.727 1946 Unknown [id number] 2.16.840.1.556981.3.579. 2.727 1946 Unknown [id number] 2.16.840.1.850235.3.579. 2.1259 1946 Unknown [id number] 2.16.840.1.200452.3.579. 2.1259 1946 Unknown [id number] 2.16.840.1.134127.3.579. 2.1259 1946 Unknown [id number] 2.16.840.1.634266.3.579. 2.1259 1946 Unknown [id number] 2.16.840.1.147251.3.579. 2.1259 1946 Unknown [id number] 2.16.840.1.756288.3.579. 2.1259 Self-pay Self Pay [id number] Unknown [id number] 2.16.840.1.375373.3.579. 2.593 Unknown [id number] 2.16.840.1.776425.3.579. 2.593 Social History Date Type Detail Facility Start: 08-30-2023 End: 04-25-2024 Sex Assigned At [facility] Start: 07-04-2021 End: 07-04-2021 Tobacco smoking status NHIS Ex-smoker (finding) [facility] Start: 1945 Sex Assigned At Male F [facility] Tobacco smoking status Never [facility] End: 06-21-1980 History of tobacco use Current smoker [facility] End: 06-21-1980 History of tobacco use Cigarette Smoker [facility] Start: 04-21-2023 Tobacco use and exposure Smokeless tobacco non-user [facility] Start: 08-30-2023 End: 04-25-2024 Alcoholic beverage intake Current drinker of alcohol (finding) [facility] Start: 08-30-2023 End: 04-25-2024 History of Social function [facility] Start: 04-21-2023 Alcohol Comment caffeine intak e: 3-4 cups per day [facility] Start: 1945 Sex assigned at Not on file [facility] Start: 05-08-2024 End: 05-11-2024 Sex Male (finding) [facility] Medical Equipment Procedure Code Equipment Code Equipment Origin al Text Equipment Identifier Dates Arthroplasty, knee, total, minimally invasive Orthopaedic cement, non-medicated [id number] FDA Start: 07-04-2021 Arthroplasty, knee, total, minimally invasive Uncoated knee femur prosthesis [id number] FDA Start: 07-04-2021 Arthroplasty, knee, total, minimally invasive Tibial insert [id number] FDA Start: 07-04-2021 Arthroplasty, knee, total, minimally invasive Uncoated knee tibia prosthesis, metallic [id number] FDA Start: 07-04-2021 Arthroplasty, knee, total, minimally invasive Polyethylene patella prosthesis ()[id number] FDA Start: 07-04-2021 Arthroplasty, hip, total, anterior approach HEAD BIOLOX CERAMIC 36/+3.5 L FDA Start: 01-28-2018 Arthroplasty, hip, total, anterior approach HIP LEVEL 3 FDA Start: 01-28-2018 Arthroplasty, hip, total, anterior approach LINER VIVACIT-E 36MM SIZE II FDA Start: 01-28-2018 Arthroplasty, hip, total, anterior approach SCREW BONE 6.5MM X 35MM FDA Start: 01-28-2018 Arthroplasty, hip, total, anterior approach SCREW BONE 6.5MM X 40MM FDA Start: 01-28-2018 Arthroplasty, hip, total, anterior approach SHELL TM 52MM SIZE II FDA Start: 01-28-2018 Arthroplasty, hip, total, anterior approach STEM B/5 06/03 [facility] FDA Start: 01-28-2018 Arthroplasty, hip, total, anterior approach HEAD BIOLOX CERAMIC 36/+3.5 L FDA Start: 01-28-2018 Arthroplasty, hip, total, anterior approach HIP LEVEL 3 FDA Start: 01-28-2018 Arthroplasty, hip, total, anterior approach LINER VIVACIT-E 36MM SIZE II FDA Start: 01-28-2018 Arthroplasty, hip, total, anterior approach SCREW BONE 6.5MM X 35MM FDA Start: 01-28-2018 Arthroplasty, hip, total, anterior approach SCREW BONE 6.5MM X 40MM FDA Start: 01-28-2018 Arthroplasty, hip, total, anterior approach SHELL TM 52MM SIZE II FDA Start: 01-28-2018 Arthroplasty, hip, total, anterior approach STEM 06/03 [facility] FDA Start: 01-28-2018 Arthroplasty, hip, total, anterior approach HEAD BIOLOX CERAMIC 36/+3.5 L FDA Start: 01-28-2018 Arthroplasty, hip, total, anterior approach HIP LEVEL 3 FDA Start: 01-28-2018 Arthroplasty, hip, total, anterior approach LINER VIVACIT-E 36MM SIZE II FDA Start: 01-28-2018 Arthroplasty, hip, total, anterior approach SCREW BONE 6.5MM X 35MM FDA Start: 01-28-2018 Arthroplasty, hip, total, anterior approach SCREW BONE 6.5MM X 40MM FDA Start: 01-28-2018 Arthroplasty, hip, total, anterior approach SHELL TM 52MM SIZE II FDA Start: 01-28-2018 Arthroplasty, hip, total, anterior approach STEM 06/03 [facility] FDA Start: 01-28-2018 Blood Sugar Diagnostic (Accu-Chek Guide Test Strips) strip Start: 09-06-2023 Blood Sugar Diagnostic (Accu-Chek Guide Test Strips) strip Start: 09-06-2023 Blood Sugar Diagnostic (Accu-Chek Guide Test Strips) strip Start: 09-06-2023 Functional Status Date Assessment Result Facility 01-21-2024 Functional Status N/A [facility] Clinical Notes 04-28-2023 to 05-08-2024 Note Date & Type Note Facility 05-08-2024 Evaluation note Diagnosis Onset Date Resolution Controlled diabetes mellitus with hyperglycemia acute May 08, 2024 10:58am Hypercholesteremia acute Novemb er 2023 10:58am Hypertension acute April 10:58am Mass of joint of right shoulder acute May 11, 2024 8:51am 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 Subjective Patient ID: Lele Gaspar is a 78 y.o. male who presents for Ear Problem (Annual mastoid check ) Family History Problem Relation Name Age of Onset Hypertension Mother Diabetes Mother Breast cancer Mother Hypertension Father Heart failure Father Diabetes Father Active Ambulatory Problems Diagnosis Date Noted Asymmetrical sensorineural hearing loss 04/19/2023 Bilateral tinnitus 04/19/2023 Difficulty walking 04/19/2023 Other chronic pain 04/19/2023 Pain in left knee 04/19/2023 Postmastoidectomy complication 04/19/2023 Unilateral primary osteoarthritis, right knee 04/19/2023 Diabetes (CMS/HCC) 04/19/2023 Hypertension (CMS/HCC) 04/19/2023 Hyperlipidemia (CMS/HCC) 04/19/2023 Deafness 04/19/2023 Encounter for mastoidectomy cavity debridement, right 04/21/2023 Left ear impacted cerumen 04/21/2023 Resolved Ambulatory Problems Diagnosis Date Noted Status post total right knee replacement 04/19/2023 Past Medical History: Diagnosis Date COVID 01/2020 H/O mastoidectomy 1970 Heart block High cholesterol (CMS/HCC) HTN (hypertension) (CMS/HCC) Other disorders following mastoidectomy, unspecified ear Squamous cell carcinoma in situ 2009 Past Surgical History: Procedure Laterality Date BACK SURGERY 06/12/2016 discectomy, laminectomy, decompression, Dr. Rod EYE SURGERY repair vitreous detachment, OS KNEE SURGERY Right 1969 arthroscopy, Dr. Marte KNEE SURGERY Left 1998 arthroscopy, Dr. Barnes MASTOID SURGERY Right 1969 SHOULDER SURGERY Right 2010 arthroscopy, Dr. Barnes TOTAL HIP ARTHROPLASTY Right 2017 Dr. Morales TOTAL KNEE ARTHROPLASTY Left 2016 Dr. Barnes Allergies Allergen Reactions Atorvastatin Other Current Outpatient Medications on File Prior to Visit Medication Sig Dispense Refill dapagliflozin (Farxiga) 5 MG Take 5 mg by mouth 1 (one) time each day at the same time. glyBURIDE (Diabeta) 5 MG tablet Take 5 mg by mouth in the morning and 5 mg in the evening. Take with meals. hydrALAZINE (Apresoline) 50 MG tablet Take 50 mg by mouth every 12 (twelve) hours. labetalol (Normodyne) 200 MG tablet Take 200 mg by mouth every 12 (twelve) hours. lisinopril 40 MG tablet Daily pioglitazone (Actos) 15 MG tablet Take 15 mg by mouth 1 (one) time each day at the same time. polyethylene glycol, PEG, 3350 (MiraLax) 17 GM/SCOOP powder Take 17 g by mouth in the morning. simvastatin (Zocor) 5 MG tablet Take 5 mg by mouth at bedtime SITagliptin-metFORMIN (Janumet) 50-1000 MG tablet Take 1 tablet by mouth every 12 (twelve) hours. [DISCONTINUED] aspirin 81 MG EC tablet Take 81 mg by mouth in the morning and 81 mg before bedtime. [DISCONTINUED] oxyCODONE-acetaminophen (Percocet) 5-325 MG tablet Take 1 tablet by mouth every 6 (six) hours if needed. [DISCONTINUED] quinapril (Accupril) 40 MG tablet Take 40 mg by mouth 1 (one) time each day at the same time. [DISCONTINUED] rosuvastatin (Crestor) 20 MG tablet Take 20 mg by mouth 1 (one) time each day at thesame time. No current facility-administered medications on file prior to visit. Objective Last Recorded Vitals Vitals: 04/25/24 0910 BP: 115/60 ENT Physical Exam Ear Ear comments: Moderate RT mastoid debris Patient ID: Lele Gaspar is a 78 y.o. male. Procedures Patient was taken to the procedure room and placed in exam chair/table. The operating microscope was brought into position and the mastoid cavity was debrided with suction Assessment/Plan Diagnoses and all orders for this visit: Encounter for mastoidectomy cavity debridement, right Mastoid debrided documented in this encounterEllis [facility]ischel [facility] [id number] Hospital Discharge instructions Patient Education 01/21/2024 10:26:26 Prostate Cancer Screening Prostate Cancer Screening Prostate cancer screening is testing that is done to check for the presence of prostate cancer in men. The prostate gland is a walnut-sized gland that is located below the bladder and in front of therectum in males. The function of the prostate is to add fluid to semen during ejaculation. Prostatecancer is one of the most common types of cancer in men. Who should have prostate cancer screening? Screening recommendations vary based on age and other risk factors, as well as between the professional organizations who make the recommendations. In general, screening is recommended if: You are age 50 to 70 and have an average risk for prostate cancer. You should talk with your healthcare provider about your need for screening and how often screening should be done. Because most prostate cancers are slow growing and will not cause , screening in this age group is generally reserved for men who have a 10- to 15-year life expectancy. You are younger than age 50, and you have these risk factors: ?Having a father, brother, or uncle who has been diagnosed with prostate cancer. The risk is higherif your family member's cancer occurred at an early age or if you have multiple family members withprostate cancer at an early age. ?Being a male who is Black or is of [place] or sub-Saharan descent. In general, screening is not recommended if: You are younger than age 40. You are between the ages of 40 and 49 and you have no risk factors. You are 70 years of age or older. At this age, the risks that screening can cause are greater than the benefits that it may provide. If you are at high risk for prostate cancer, your health care provider may recommend that you have screenings more often or that you start screening at a younger age. How is screening for prostate cancer done? The recommended prostate cancer screening test is a blood test called the prostate-specific antigen(PSA) test. PSA is a protein that is made in the prostate. As you age, your prostate naturally produces more PSA. Abnormally high PSA levels may be caused by: Prostate cancer. An enlarged prostate that is not caused by cancer (benign prostatic hyperplasia, or BPH). This condition is very common in older men. A prostate gland infection (prostatitis) or urinary tract infection. Certain medicines such as male hormones (like testosterone) or other medicines that raise testosterone levels. A rectal exam may be done as part of prostate cancer screening to help provide information about the size of your prostate gland. When a rectal exam is performed, it should be done after the PSA level is drawn to avoid any effect on the results. Depending on the PSA results, you may need more tests, such as: A physical exam to check the size of your prostate gland, if not done as part of screening. Blood and imaging tests. A procedure to remove tissue samples from your prostate gland for testing (biopsy). This is the only way to know for certain if you have prostate cancer. What are the benefits of prostate cancer screening? Screening can help to identify cancer at an early stage, before symptoms start and when the cancer can be treated more easily. There is a small chance that screening may lower your risk of dying from prostate cancer. The chance is small because prostate cancer is a slow-growing cancer, and most men with prostate cancer from a different cause. What are the risks of prostate cancer screening? The main risk of prostate cancer screening is diagnosing and treating prostate cancer that would never have caused any symptoms or problems. This is called overdiagnosisand overtreatment. PSA screening cannot tell you if your PSA is high due to cancer or a different cause. A prostate biopsy is the only procedure to diagnose prostate cancer. Even the results of a biopsy may not tell you if your cancer needs to be treated. Slow-growing prostate cancer may not need any treatment other than monitoring, so diagnosing and treating it may cause unnecessary stress or other side effects. Questions to ask your health care provider When should I start prostate cancer screening? What is my risk for prostate cancer? How often do I need screening? What type of screening tests do I need? How do I get my test results? What do my results mean? Do I need treatment? Where to find more information The [place] [employer]: www.cancer.org [place] [employer]: www.auanet.org Contact a health care provider if: You have difficulty urinating. You have pain when you urinate or ejaculate. You have blood in your urine or semen. You have pain in your back or in the area of your prostate. Summary Prostate cancer is a common type of cancer in men. The prostate gland is located below the bladder and in front of the rectum. This gland adds fluid to semen during ejaculation. Prostate cancer screening may identify cancer at an early stage, when the cancer can be treated more easily and is less likely to have spread to other areas of the body. The prostate-specific antigen (PSA) test is the recommended screening test for prostate cancer, butit has associated risks. Discuss the risks and benefits of prostate cancer screening with your health care provider. If you are age 70 or older, the risks that screening can cause are greater than the benefits that it may provide. This information is not intended to replace advice given to you by your health care provider. Make sure you discuss any questions you have with your health care provider. Document Revised: 12/01/2021 Document Reviewed: 12/01/2021 [employer] Patient Education 2022 [employer]. Follow Up Care 11/29/2023 09:11:03 With:ZULY RIVERA, Ed Wood, URL Address: [address] [place], [place] [id number]- When: Unknown [facility] 08-02-2024 NoteUrology Office/Clinic Note Chief Complaint Referral *Elevated PSA HPI Staff Evaluation requested by Dr Misty Rod due to elevated PSA. Pt is a new pt. Never before seen in our office. (Verified on DA) +Fam Hx of Prostate Cancer. (Uncles) Increased urgency lately, denies loss of bladder control. Denies straining. Good stream. Feels empty. No concerns with urination. PSA: 03/04/15 - 1.02 10/08/15 - 0.82 11/23/16 - 1.11 02/08/18 - 1.97 11/21/18 - 2.14 12/21/19 - 2.54 08/10/20 - 1.630 10/06/22 - 3.46 05/06/23 - 2.76 11/01/23 - 3.74 History of Present Illness Tests reviewed: reviewed UA, PSAs, and external records. I have reviewed the previous health record information and history for this patient from external provider. I have reviewed and verified the staff HPI to be accurate for this encounter. There have been no associated fever, chills, flank pain, or blood in the urine. Denies any urinary infections since last encounter. Review of Systems PHQ Score Initial Depression Screen Score: 0 SCORE ROS - Provider Constitutional: denies weight loss, denies hot flashes. Eyes: denies eye problems. Gastrointestinal: denies nausea, denies vomiting. Cardiovascular: denies chest pain or angina. Integumentary: no dryness Musculoskeletal: denies musculoskeletal symptoms. ENMT: denies otolaryngeal symptoms. Respiratory: no shortness of breath. Heme/Lymph: denies easy bleeding tendency, denies easy bruising tendency. Psychiatric: no confusion, no anxiety. Genitourinary: See HPI. Physical Exam Vitals & Measurements HR: 80(Peripheral) RR: 16 BP: 132/78 HT: 70 in HT: 178 cm WT: 114 kg WT: 250.8 lb BMI: 35.98 General Appearance: alert, no distress, well nourished, well developed male. Head: normocephalic . Eyes: normal orbit and globe. ENMT: normal examination of external ears. Prostate: normal prostate, estimated weight 35 gms, no hard nodule observed. Skin: warm, dry, no bruising. Psychiatric: cooperative, affect appropriate for age, normal judgement, euthymic mood. Assessment/Plan Lele is a [address] referred by Dr[address] Misty Rod for elevated PSA. No prior prostate or bladder procedures. [place] 0 1. Elevated PSA (R97.20: Elevated prostate specific antigen [PSA]) PSA: 03/04/15 - 1.02 10/08/15 - 0.82 11/23/16 - 1.11 02/08/18 - 1.97 11/21/18 - 2.14 12/21/19 - 2.54 08/10/20 - 1.630 10/06/22 - 3.46 05/06/23 - 2.76 11/01/23 - 3.74 He has an elevated PSA, which could indicate prostate cancer, prostate infection, prostate inflammation without infection, prostate manipulation, or benign prostate enlargement (BPH). The importance of the rate of PSA rise has also been discussed. The options for management have been discussed, including prostate biopsy versus close monitoring of the PSA over time. Explained to pt that his PSA is not gravely concerning however it has increased over time. Discussed options such as continued surveillance of PSA vs proceeding with an MRI. Explained to pt that his age does play a factor. Pt elects to repeat PSA in 6 mos. LUIS: ~35g, benign. -PSA in 6 mos 2. Family history of prostate cancer (Z80.42: Family history of malignant neoplasm of prostate) Uncle (s) have hx of prostate cancer. 3. BPH without urinary obstruction (N40.0: Benign prostatic hyperplasia without lower urinary tractsymptoms) IPSS 5 UA today neg. Denies UTIs or hx of prostatitis. No urinary concerns. Good stream. Feels empty. 75% of time he gets up 1x per night. Not taking any BPH meds. Adamant that his sx do not warrant starting a medication. Follow-up With When Contact Information ZULY RIVERA, Ed Wood, URL [address] [place] [address]- Additional Instructions: 6 mos w/ PSA Patient Education Prostate Cancer Screening I, Lamar Rosa, personally scribed for Dr. Garcai on 01/21/2024 10:33:51. Electronically signedby alex Rosa on 01/21/2024 10:33:51. Documentation recorded by the scribe, Lamar Rosa, accurately reflects the services(s) I performed and decisions made by me. Authenticated by Dr. Garcia on 01/21/2024 10:35:47. Problem List/Past Medical History Ongoing BPH without urinary obstruction DJD (degenerative joint disease) Elevated PSA Family history of prostate cancer GERD (gastroesophageal reflux disease) Hiatal hernia Hypercholesterolemia Hypertension Skin cancer Type II diabetes mellitus Historical No qualifying data Procedure/Surgical History Arthroplasty of right hip, Arthroscopy of knee, Discectomy, Mastoidectomy, Tonsillectomy, Vasectomy. Medications GlyBURIDE (Eqv-DiaBeta) 5 mg oral tablet hydrALAZINE 50 mg Tab Janumet 50 mg/1000 mg oral tablet Jardiance 10 mg oral tablet, Oral, qAM labetalol 200 mg Tab lisinopril 40 mg Tab pioglitazone 15 mg Tab rosuvastatin 20 mg Tab Allergies atorvastatin (Muscle ache) Social History Tobacco Former smoker, quit more than 30 days ago (more content not included)...[facility]bleComment on above:Result Comment: Electronically Signed By: Ed GARCIA MD\.br\Date and Time Signed: 01/21/24 10:35 EDT\.br\Electronically Co-Signed By: Lamra Rosa.br\Date and Time Co- Signed: 01/20/2410:34 [id number] NotePatient Education Oncology Prostate Cancer Screening Prostate cancer screening is testing that is done to check for the presence of prostate cancer in men. The prostate gland is a walnut-sized gland that is located below the bladder and in front of therectum in males. The function of the prostate is to add fluid to semen during ejaculation. Prostatecancer is one of the most common types of cancer in men. Who should have prostate cancer screening? Screening recommendations vary based on age and other risk factors, as well as between the professional organizations who make the recommendations. In general, screening is recommended if: ? You are age 50 to 70 and have an average risk for prostate cancer. You should talk with your health care provider about your need for screening and how often screening should be done. Because most prostate cancers are slow growing and will not cause , screening in this age group is generallyreserved for men who have a 10- to 15-year life expectancy. ? You are younger than age 50, and you have these risk factors: ? Having a father, brother, or uncle who has been diagnosed with prostate cancer. The risk is higher if your family member's cancer occurred at an early age or if you have multiple family members with prostate cancer at an early age. ? Being a male who is Black or is of [place] or sub-Saharan descent. In general, screening is not recommended if: ? You are younger than age 40. ? You are between the ages of 40 and 49 and you have no risk factors. ? You are 70 years of age or older. At this age, the risks that screening can cause are greater than the benefits that it may provide. If you are at high risk for prostate cancer, your health care provider may recommend that you have screenings more often or that you start screening at a younger age. How is screening for prostate cancer done? The recommended prostate cancer screening test is a blood test called the prostate-specific antigen(PSA) test. PSA is a protein that is made in the prostate. As you age, your prostate naturally produces more PSA. Abnormally high PSA levels may be caused by: ? Prostate cancer. ? An enlarged prostate that is not caused by cancer (benign prostatic hyperplasia, or BPH). This condition is very common in older men. ? A prostate gland infection (prostatitis) or urinary tract infection. ? Certain medicines such as male hormones (like testosterone) or other medicines that raise testosterone levels. A rectal exam may be done as part of prostate cancer screening to help provide information about the size of your prostate gland. When a rectal exam is performed, it should be done after the PSA level is drawn to avoid any effect on the results. Depending on the PSA results, you may need more tests, such as: ? A physical exam to check the size of your prostate gland, if not done as part of screening. ? Blood and imaging tests. ? A procedure to remove tissue samples from your prostate gland for testing (biopsy). This is the only way to know for certain if you have prostate cancer. What are the benefits of prostate cancer screening? ? Screening can help to identify cancer at an early stage, before symptoms start and when the cancer can be treated more easily. ? There is a small chance that screening may lower your risk of dying from prostate cancer. The chance is small because prostate cancer is a slow-growing cancer, and most men with prostate cancer diefrom a different cause. What are the risks of prostate cancer screening? The main risk of prostate cancer screening is diagnosing and treating prostate cancer that would never have caused any symptoms or problems. This is called overdiagnosisand overtreatment. PSA screening cannot tell you if your PSA is high due to cancer or a different cause. A prostate biopsy is the only procedure to diagnose prostate cancer. Even the results of a biopsy may not tell you if your cancer needs to be treated. Slow-growing prostate cancer may not need any treatment other than monitoring, so diagnosing and treating it may cause unnecessary stress or other side effects. Questions to ask your health care provider ? When should I start prostate cancer screening? ? What is my risk for prostate cancer? ? How often do I need screening? ? What type of screening tests do I need? ? How do I get my test results? ? What do my results mean? ? Do I need treatment? Where to find more information ? The [place] [employer]: www.cancer.org ? [place] [employer] Association: www.auanet.org Contact a health care provider if: ? You have difficulty urinating. ? You have pain when you urinate or ejaculate. ? You have blood in your urine or semen. ? You have pain in your back or in the area of your prostate. Summary ? Prostate cancer is a common type of cancer in men. The prostate gland is located below the bladder and in front of the rectum. (more content not included)...[facility]01-09-2024 Evaluation note* Encounter Date Diagnosis Assessment Notes Treatment Notes Treatment Clinical Notes Jun, BPH (benign prostatic hyperplasia) (ICD-10 - N40.0) [facility] Other 11-08-2023 Evaluation note* Encounter Date Diagnosis Assessment Notes Treatment Notes Treatment Clinical Notes Apr, Type 2 diabetes mellitus with hyperglycemia, without long-term current use of insulin (ICD-10 - E11.65) Healthy diet and exercise encouraged. Weight loss helps to reduce blood sugars and A1C. Wear supportive shoes, avoid open toed shoes. Check feet daily. Apr, Essential (primary) hypertension (ICD-10 - I10) Blood pressure remains well controlled at this time. Denies cardiac symptoms. Shows no signs or symptoms or poor control. Patient to continue with above medication and we will continue to monitor. Advised to pay attention to body and symptoms. Any developing patterns. Stay well hydrated. Apr, Screening PSA (prostate specific antigen) (ICD-10 - Z12.5) [facility] Other Chief complaint+Reason for visit Narrative* Chief Complaint Amb Documentation Left ring finger laceration med questions, urology referral Reason for Visit Laceration of left r ing finger w/o foreign body w/o damage to nail PSA elevation [facility] Work Phone: Evaluation + Plan note Future Appointments Appointment Date:07/24/2024 10:15:00 AM Scheduled Provider:Ed GARCIA MD Location:[facility] Appointment Type:URO Office Visit Diagnostic Tests Pending * PSA Total 06/21/24 [facility] evaluation [facility]No [facility] Other Evaluation note* Diagnosis Onset Date Resolution Status Laceration of left ring fing er w/o foreign body w/o damage to nail acute PSA elevation acute [facility] Work Phone: Evaluation note* Diagnosis Encounter for mastoidectomy cavity debridement, right- Primary [facility] Diagnosis Onset Date Resolution Status Admit Date Controlled diabetes mellitus with hyperglycemia acute May 08, 2 024 10:58am Hypercholesteremia acute Novemb er 2023 10:58am Hypertension acute April 10:58am [facility] Work Phone: History general Narrative - Reported* Type Description Date Medical History DM Medical History HTN Medical History Hypercholesteremia Medical History Rupture discs Medical History Spinal stenosis Surgical History Ear surgury 1996 Surgical History RT mastoidectomy 1970 Surgical History (R) KNEE SCOPE - DR MARTE 1995 Surgical History Tonsillectomy 1974 Surgical History (L) KNEE SCOPE - DR BARNES 19 99 Surgical History Knee scopes x2 1998 Surgical History (R) SHOULDER SCOPE - DR TRAORE C 2010 Surgical History Rt shoulder surgery 2007 Surgical History DISCECTOMY ; LAMINEC NATE ; LAMINOTOMY ; DECOMPRESSION - DR ROD 06/12/16 Surgical History total RT hip 2018 Surgical History LT knee replaced 2017 Surgical History reapir vitreous detachment, OS Hospitalization History See Above [facility] Other Hospital course Narrative No data available for this section [facility] Hospital Discharge instructionsAmbulatory Orders* Referral to Urology Time Frame: 11/23/23, Location: None [facility] Work Phone: Progress note No data available for this section [facility] Summary Purpose Family History Relationship Condition Age at Onset Recorded Date/T walter father Myocardial infarction Unknown Heart disease Unknown Type 2 diabetes mellitus Unknown Not Specified Heart disease Unknown Malignant neoplasm of breast Unknown brother Type 2 diabetes mellitus Unknown father Unknown Diabetes mellitus Unknown Hypertension Unknown Not Specified Malignant neoplasm of breast Unknown Unknown Malignant neoplasm Unknown Relationship Condition Age at Onset Recorded Date/T walter father Myocardial infarction Unknown Heart disease Unknown Type 2 diabetes mellitus Unknown mother Heart disease Unknown Malignant neoplasm of breast Unknown brother Type 2 diabetes mellitus Unknown father Unknown Diabetes mellitus Unknown Hypertension Unknown mother Malignant neoplasm of breast Unknown Unknown Malignant neoplasm Unknown Advance Directives Advance Directive Response Recorded Date/ Time Advance Directives No January 07 11:22am Advance Directive Response Recorded Date/ Time Advance Directives No January 07 10:22am Chief Complaint and Reason for Visit Chief Complaint Admit Date go over medication, issue with shoulder May 08, 2024 10:58am Reason for Visit Admit Date Controlled diabetes mellitus with hyperg lycemia May 08, 2024 10:58am Hypercholesteremia May 08, 2024 10:58am Hypertension May 08, 2024 10:58am Chief Complaint Admit Date go over medication, issue with shoulder May 08, 2024 10:58am M25.512 - Pain in left shoulder May 11, 2024 8:20am CONSULT DR MISTY ROD LEFT SHOULDER PA IN NX May 11, 2024 8:51am Reason for Visit Admit Date Controlled diabetes mellitus with hyperg lycemia May 08, 2024 10:58am Hypercholesteremia May 08, 2024 10:58am Hypertension May 08, 2024 10:58am Mass of joint of right shoulder May 11, 2024 8:51am 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 May 11, 2024 8:51am Primary osteoarthritis, left shoulder No vember 2023 8:51am Additional Source Comments (unrecognized sect ion and content) No Status Records FoundNo Status Records FoundNo Status Records FoundNo Status Records FoundNo Status Records Found INFORMATION SOURCE (unrecogn ized section and content) DATE CREATED AUTHOR 07/12/2021 [facility] dical Specialist DATE CREATED AUTHOR AUTHOR'S ORGANIZ ATION 07/31/2021 [facility] DATE CREATED AUTHOR AUTHOR'S ORGANIZ ATION 10/06/2022 [facility] DATE CREATED AUTHOR AUTHOR'S ORGANIZ ATION 01/23/2024 Rivas Bacon [facility] DATE CREATED AUTHOR AUTHOR'S ORGANIZ ATION 04/26/2024 [facility] dical Specialists EPIC REASON FOR VISIT (unrecogniz ed section and content) Reason Comments Ear Problem Annual mastoid check Care Teams (unrecognized sec tion and content) Team Status: Active Member Role Status Dates Misty Rod MD Primary Care Provider Active Team Status: Inactive Member Role Status Dates Misty Rod MD Primary Care Provide r, Attending Provider Active Start: May 08, 2024 End: May 08, 2024 Team Status: Active Member Role Status Dates Misty Rod MD Primary Care Provider Active Start: September 06, 2023 SKYLAR Baumann Attending Provider Active St art: September 06, 2023 Team Status: Active Member Role Status Dates Misty Rod MD Primary Care Provide r, Attending Provider Active Start: November 01, 2023 Team Status: Inactive Member Role Status Dates Misty Rod MD Primary Care Provider Active Start: November 02, 2023 End: November 02, 2023 Shiloh Real APRN Attending Provider Active Start: November 02, 2023 End: November 02, 2023 Team Status: Inactive Member Role Status Dates Misty Rod MD Primary Care Provide r, Attending Provider Active Start: November 23, 2023 End: November 23, 2023 [employer] Relationship Specialty Start Date End Date Misty Rod MD [address] [place] [address] PCP - General Family Medicine 04/21/23 [employer] Relationship Specialty Start Date End Date Misty Rod MD [address] [place] [address] PCP - General Family Medicine 04/21/23 Team Status: Active Member Role Status Dates Misty Rod MD Primary Care Provider Active Start: May 11, 2024 David Real DO Attending Provider Active St art: May 11, 2024 Team Status: Inactive Member Role Status Dates Misty Rod MD Primary Care Provider Active Start: May 11, 2024 End: May 11, 2024 Daivd Real DO Attending Provider Active St art: May 11, 2024 End: May 11, 2024 Goals (unrecognized section and content) Goals may be documented in a n alternate section FOR RECORDS PERTAINING TO PATIENTS WHO ARE OR HAVE BEEN ENROLLED IN A CHEMICAL DEPENDENCY/SUBSTANCEABUSE PROGRAM, SOME INFORMATION MAY BE OMITTED. This clinical summary was aggregated from multiple sources. Caution should be exercised in using it in the provision of clinical care. This summary normalizes information from multiple sources, and as a consequence, information in this document may materially change the coding, format and clinical context of patient data. In addition, data may be omitted in some cases. CLINICAL DECISIONS SHOULD BE BASED ON THE PRIMARY CLINICAL RECORDS. [facility] [employer] [facility]. provides no warranty or guarantee of the accuracy or completeness of information in this document.
[2024-05-12 07:12] LABS: Basophils Percent Auto 0.9 % (0.2-2.0); Eosinophils Absolute Auto 0.2 10^3/uL (0.0-0.7); Eosinophils Percent Auto 3.9 % (0.9-7.0); Hematocrit 40.4 % (42.0-54.0); Hemoglobin 13.4 g/dL (14.0-18.0); Immature Granulocytes Abs Auto 0.02 10^3/uL (0.00-0.03); Immature Granulocytes Pct Auto 0.4 % (0.0-0.5); Lymphocytes Percent Auto 22.3 % (20.5-60.0); Mean Corpuscular HGB Conc 33.2 g/dL (29.9-35.2); Mean Corpuscular Hemoglobin 33.7 pg (25.9-34.0); Mean Corpuscular Volume 101.5 fL (80.0-94.0); Mean Platelet Volume 10.8 fL (9.5-13.5); Monocytes Absolute Auto 0.5 10^3/uL (0.3-0.8); Monocytes Percent Auto 10.7 % (1.7-12.0); Neutrophils Absolute Auto 2.8 10^3/uL (1.4-6.5); Neutrophils Percent Auto 61.8 % (43.0-75.0); Platelet Count 184 10^3/uL (150-450); Red Blood Count 3.98 10^6/uL (4.70-6.10); Red Cell Distribution Width 12.2 % (11.0-15.0); White Blood Count 4.6 10^3/uL (4.0-11.0)
[2024-05-12 07:45] LABS: Microalbumin Urine Random 2.9 mg/dL (<=30.0)
[2024-05-12 07:46] LABS: Alanine Aminotransferase 24 U/L (16-63); Albumin Globulin Ratio 1.6; Albumin Level 3.8 g/dL (3.4-5.0); Alkaline Phosphatase 99 U/L (46-116); Anion Gap 15.4; Aspartate Amino Transferase 15 U/L (15-37); Bilirubin Total 0.5 mg/dL (0.2-1.0); Calcium 8.8 mg/dL (8.5-10.1); Carbon Dioxide 25.8 mmol/L (21.0-32.0); Chloride 104 mmol/L (98-107); Chol HDL Ratio 1.9; Cholesterol 145 mg/dL (<=200); Estimated GFR (African America >60 (>=60 mL/min/1.73m^2); Estimated GFR (Non-African Ame >60 (>=60 mL/min/1.73m^2); Globulin 2.4 g/dL; Glucose 148 mg/dL (74-106); HDL Cholesterol 77 mg/dL (40-60); Potassium 4.2 mmol/L (3.5-5.1); Sodium 141 mmol/L (136-145); Total Protein 6.2 g/dL (6.4-8.2); Triglycerides 66 mg/dL (<=150); VLDL CHOLESTEROL 13.2 mg/dL
[2024-05-12 08:44] LABS: Estimated Average Glucose 151 mg/dL; Glycohemoglobin A1C 6.9 % (4.5-6.2)
== END 2024-05-12 06:28 | disposition home or self-care (01) ==
LOC: LAB 06:29
PROVIDERS: PCP Family Medicine; Visit Provider Family Medicine
DX: E78.00 Pure hypercholesterolemia, unspecified (principal); E11.65 Type 2 diabetes mellitus with hyperglycemia; I10 Essential (primary) hypertension; Z79.4 Long term (current) use of insulin
CPT/HCPCS: 36415; 80053; 80061; 82043; 83036; 85025

== ENCOUNTER 2024-07-14 10:42 | Outpatient (OUT) | payer MEDICARE, OTHER, SELFPAY ==
--- OUTSIDE RECORDS SUMMARY | 2024-07-14 10:59 | XMS_ITS | CCD ---
Author Organization [facility] Care Team Providers Care Otm Consultant Name Role Phone REQUEST, NONE LISTED Admitting Unavaila ble REQUEST, NONE LISTED Attending Unavaila abrahan ROD, DR MISTY Betts Primary Care Unavailable REQUEST, DR MELGAR LISTED Consulting Unavaila abrahan ROD, DR MISTY Betts Admitting Unavailable ROD, [...] Primary Care Unavailable Misty Rod Unavailable MISTY RDO Primary Care Physician [phone] Ed GARCIA Attending Unavailable MISTY ROD Referring Unavailable Ed GARCIA Attending Unavailable Misty Rod MD Primary Care Provider PRISCILLA HEALY Attending Unavailable PRISCILLA HEALY Referring Unavailable PRISCILLA HEALY Referring Unavailable PRISCILLA HEALY Referring Unavailable JR. BARNES GEORGE C Attending Unavaila LISBETH Shook Attending Unavailable Misty Rod MD Primary Care Provider [phone] David Real DO Attending Provider David Real Admitting Unavailable Misty Rod Primary Care Unavailable David Real Attending Unavailable David Real Admitting Unavailable Misty Rod Primary Care Unavailable David Real Attending Unavailable David Real Attending Unavailable David Real Admitting Unavailable Misty Rod Primary Care Unavailable Allergies Allergy Classification Reported Allergen(s) Allergy Type Date of Onset Reaction(s) Facility (13 sources) atorvastatin; Translations: [atorvastatin] Drug Allergy 8 Muscle pain (finding) [facility] Comment on above: Onset Date: 05/30/20 18 (2 sources) atorvastatin Drug Allergy 4 Other [facility] (1 source) atorvastatin Drug Allergy 5 [facility] Repository Medications Current Medications Medication Drug Class(es) Dates Sig (Normalized) Sig (Original) aspirin 81 mg chewable tablet (8 sources) Platelet Aggregation Inhibitor, Nonsteroidal Anti-inflammatory Drug Start: 06-22-2024 take 1 tablet by mouth two times weekly as needed for pain Aspirin (Aspirin Childrens) 81 mg tablet,chewable Active 81 MG PO Twice a Week as needed for fever or pain June 22, 2024 12:00am Start: 01-29-2018 End: 04-25-2024 take 1 tablet by mouth twice daily Aspirin 81 mg Tablet,Delayed Release (Dr/Ec) Discontinued 81 MG PO Twice daily 0 January 28, 2018 11:00pm June 18, 2021 11:29am Blood-Glucose Meter (Accu-Ch ek Guide Glucose Meter) misc (4 sources) Start: 09-06-2023 Blood-Glucose Meter (Accu-Chek Guide Glucose Meter) misc Active 0 .Route 1 September 05, 2023 11:00pm As directed Start: 09-06-2023 Blood-Glucose Meter (Accu-Chek Guide Glucose Meter) misc Active 0 .Route 1 September 06, 2023 12:00am As directed cholecalciferol 0.025 mg oral capsule (4 sources) Vitamin D Start: 01-14-2018 take 1 capsule by mouth three times weekly Cholecalciferol (Vitamin D3) (Vitamin D3) 1,000 unit Capsule Active 1000 UNIT PO 3 Times a week January 13, 2018 11:00pm Start: 01-14-2018 take 1 capsule by mo [facility] once daily Cholecalciferol (Vitamin D3) (Vitamin D3) 1,000 unit Capsule Active 1000 UNIT PO Daily January 13, 2018 11:00pm dapagliflozin 10 mg oral tablet (20 sources) Sodium-Glucose Cotransporter 2 Inhibitor Start: 06-22-2024 take 1 tablet by mouth once daily in the morning Dapagliflozin Propanediol (Farxiga) 10 mg tablet Active 10 MG PO Every morning June 22, 2024 12:00am Start: 01-14-2018 End: 05-08-2024 take 1 tablet by mouth once daily in the morning Dapagliflozin Propanediol (Farxiga) 10 mg tablet Discontinued 10 MG PO Every morning November 23, 2023 12:50pm May 08, 2024 11:51am take 5 mg by mouth once daily da pagliflozin (Farxiga) 5 MG Take 5 mg by mouth 1 (one) time each day at the same time. Active FreeStyle Lite Test (7 sources) Start: 11-07-2021 FreeStyle Lite Test FreeStyle Lite Test , 1 (one) Each daily - E11.65 # 100, 11/07/2021, Ref. x3. Active In Vitro daily - E11.65 for 0 E11.65 *Pick strength-form from [facility] for eRX* October, Active FreeStyle Lite Test - (7 sources) FreeStyle Lite T est - USE DIRECTED ONCE DAILY for 90 Active FreeStyle System (7 sources) Start: 07-12-2020 FreeStyle Syst em FreeStyle System , 1 (one) Kit test once daily # 1, 07/12/2020, No Refill. Active test once daily for 0 meter Jun, Active glyBURIDE 5 mg oral tablet (20 sources) Sulfonylurea Start: 06-22-2024 take 2 tablets by mouth twice daily Glyburide 5 mg tablet Active 10 MG PO Twice daily June 22, 2024 12:00am TAKE 2 TABLETS TWICE A DAY Start: 01-17-2024 GlyBURIDE (Eqv -DiaBeta) 5 mg oral tablet 360 tab(s), 0 Refill(s), Refills(s) 0 Start Date: 01/17/24 Status: Ordered Start: 10-28-2023 End: 06-22-2024 Glyburide 5 mg tablet Discon tinued 0 .ROUTE .COMPLEX 360 February 22, 2024 12:09pm June 22, 2024 10:17am TAKE 2 TABLETS TWICE A DAY Start: 12-29-2021 take 1 tablet by melodie th twice daily glyBURIDE 5MG glyBURIDE 5MG, 2 (two) Tablet two times daily # 0, 12/29/2021, No Refill. Active Oral two times daily for 0 *Pick strength-form from [facility] for eRX* Dec, Active Start: 01-14-2018 End: [...] 8:42am hydrALAZINE hydrochloride 50 mg oral tablet (18 sources) Arteriolar Vasodilator Start: 02-09-2024 Hydralazine 50 mg tablet Active 0 .ROUTE .COMPLEX 180 February 09, 2024 7:27am TAKE 1 TABLET TWICE A DAY Start: 01-14-2018 End: 02-09-2024 take 1 tablet by mouth twice daily Hydralazine 50 mg Tablet Discontinued 50 MG PO Twice daily January 13, 2018 11:00pm February 09, 2024 7:27am take 1 tablet by melodie th every twelve hours hydrALAZINE (Apresoline) 50 MG tablet Take 50 mg by mouth every 12 (twelve) hours. Active labetalol hydrochloride 200 mg oral tablet (17 sources) beta-Adrenergic Yanely Start: 06-22-2024 take 2 tablets by mouth twice daily Labetalol 200 mg tablet Active 400 MG PO Twice daily June 22, 2024 12:00am TAKE 2 TABLETS TWICE A DAY Start: 05-15-2024 End: 06-22-2024 Labetalol 200 mg tablet Disc ontinued 0 .ROUTE .COMPLEX 360 May 15, 2024 4:55pm June 22, 2024 10:17am TAKE 2 TABLETS TWICE A DAY Start: 01-17-2024 labetalol 200 mg Tab 360 tab(s), 0 Refill(s), Refills(s) 0 Start Date: 01/17/24 Status: Ordered Start: 01-14-2018 End: 05-15-2024 take 2 tablets by mouth twice daily Labetalol 200 mg Tablet Discontinued 400 MG PO Twice daily January 13, 2018 11:00pm May 15, 2024 4:55pm Start: 01-14-2018 take 400 mg by mouth twice daily Labetalol Active 400 MG PO Twice daily January 14, 2018 12:00am take 1 tablet by melodie th every twelve hours labetalol (Normodyne) 200 MG tablet Take 200 mg by mouth every 12 (twelve) hours. Active lisinopril 40 mg oral tablet (14 sources) Angiotensin Converting Enzyme Inhibitor Start: 11-23-2023 take 1 tablet by mouth once daily in the evening Lisinopril 40 mg tablet Active 40 MG PO Every evening November 22, 2023 11:00pm Lisinopril 40 MG TAKE 1 TABLET DAILY for 90 days Active pioglitazone 15 mg oral tablet (20 sources) Peroxisome Proliferator Receptor alpha Agonist, Peroxisome Proliferator Receptor gamma Agonist, Thiazolidinedione Start: 06-22-2024 take 1 tablet by mouth once daily Pioglitazone 15 mg tablet Active 15 MG PO every day at noon June 22, 2024 12:00am TAKE 1 TABLET BY MOUTH EVERY DAY Start: 01-17-2024 pioglitazone 1 5 mg Tab 90 EA, 0 Refill(s), TAKE 1 TABLET BY MOUTH EVERY DAY, Refills(s) 0 Start Date: 01/17/24 Status: Ordered Start: 09-13-2023 End: 06-22-2024 take 1 tablet by mouth once daily Pioglitazone 15 mg tablet Discontinued 0 .ROUTE .COMPLEX June 05, 2024 3:07pm June 22, 2024 10:09am TAKE 1 TABLET BY MOUTH EVERY DAY Start: 06-18-2021 End: 09-13-2023 take 1 tablet by mouth once daily in the morning Pioglitazone 15 mg tablet Discontinued 15 MG PO Every morning June 18, 2021 12:00am September 13, 2023 2:16pm polyethylene glycol 3350 96625 mg powder for oral solution (3 sources) Osmotic Laxative polyethylene gl ycol, PEG, 3350 (MiraLax) 17 GM/SCOOP powder Take 17 g by mouth in the morning. Active rosuvastatin calcium 20 mg oral tablet (17 sources) HMG-CoA Reductase Inhibitor Start: take 1 tablet by mouth once daily at bedtime Rosuvastatin 20 mg tablet Active 20 MG PO Daily at bedtime June 22, 2024 12:00am TAKE 1 TABLET ONCE DAILY Start: 05-15-2024 End: 06-22-2024 Rosuvastatin 20 mg tablet Discontinued 0 .ROUTE .COMPLEX May 15, 2024 4:55pm June 22, 2024 10:09am TAKE 1 TABLET ONCE DAILY Start: 01-14-2018 End: 05-15-2024 take 1 tablet by mouth once daily at bedtime Rosuvastatin 20 mg Tablet Discontinued 20 MG PO Daily at bedtime January 13, 2018 11:00pm May 15, 2024 4:55pm Saxagliptin-Metformin 5-1,000 mg tablet, ER multiphase 24 hr (4 sources) Start: 06-22-2024 take 1 tablet by mouth once daily Saxagliptin-Metformin 5-1,000 mg tablet, ER multiphase 24 hr Active 1 TAB PO Daily June 22, 2024 2:11pm Start: 06-05-2024 End: 06-22-2024 take 1 tablet by mouth once daily Saxagliptin-Metformin 5-1,000 mg tablet, ER multiphase 24 hr Discontinued 1 TAB PO Daily June 05, 2024 1:12pm June 22, 2024 10:06am Start: 05-08-2024 End: 06-05-2024 take 1 tablet by mouth once daily Saxagliptin-Metformin 5-1,000 mg tablet, ER multiphase 24 hr Discontinued 1 TAB PO Daily May 08, 2024 12:00am June 05, 2024 1:12pm Start: 05-08-2024 take 1 tablet by melodie th once daily Saxagliptin-Metformin 5-1,000 mg tablet, ER [...] Sig (Original) acetaminophen 500 mg oral tablet (4 sources) Start: 01-29-2018 End: 06-18-2021 take 1 tablet by mouth every six hours Acetaminophen (Mapap Extra Strength) 500 mg Tablet Discontinued 500 MG PO Q6H 0 January 28, 2018 11:00pm June 18, 2021 11:29am acetaminophen 325 mg / oxyCODONE hydrochloride 5 mg oral tablet (11 sources) Opioid Agonist Start: 07-04-2021 End: 04-25-2024 take 1 tablet by mouth every six hours as needed for pain Oxycodone-Acetamino phen (Percocet) 5-325 mg tablet Discontinued 1 TAB PO Q6H as needed for left hip pain 28 7 July 04, 2021 November 02, 2023 9:06am Start: 01-29-2018 End: 06-18-2021 take 1 tablet by mouth every three hours as needed for pain Oxycodone-Acetaminophen 5-325 mg Tablet Discontinued 1 TAB PO Q3H as needed for Pain scale 1-5 0 January 28, 2018 11:00pm June 18, 2021 11:30am ascorbic acid 500 mg oral tablet (4 sources) Vitamin C Start: 06-18-2021 End: 05-08-2024 take 1 tablet by mouth once daily Ascorbic Acid (Vitamin C) (Vitamin C) 500 mg Tablet Discontinued 500 MG PO Daily June 18, 2021 12:00am May 08, 2024 11:21am empagliflozin 10 mg oral tablet (3 sources) Sodium-Glucose Cotransporter 2 Inhibitor Start: 05-08-2024 End: 06-22-2024 take 1 tablet by mouth once daily in the morning Empagliflozin (Jardiance) 10 mg tablet Discontinued 10 MG PO Every morning May 08, 2024 12:00am June 22, 2024 10:05am Start: 01-21-2024 take 1 mg by mouth o nce daily in the morning Jardiance 10 mg oral tablet mg tab(s), Oral, qAM, Refills(s) 0 Start Date: 01/21/24 Status: Ordered hydrOXYzine pamoate 50 mg oral capsule (4 sources) Antihistamine Start: 01-29-2018 End: 06-18-2021 take 1 capsule by mouth every six hours as needed for muscle spasms Hydroxyzine Pamoate 50 mg Capsule Discontinued 50 MG PO Q6H as needed for Muscle Spasm 0 January 28, 2018 11:00pm June 18, 2021 11:33am HYLAN G-F 20 (7 sources) Start: 10-23-2016 Synvisc October, 6 mL metFORMIN hydrochloride 1000 mg / SITagliptin 50 mg oral tablet (16 sources) Biguanide, Dipeptidyl Peptidase 4 Inhibitor Start: 06-22-2024 End: 06-22-2024 take 1 tablet by mouth twice daily Sitagliptin Phos-Metformin (Janumet) 50-1,000 mg tablet Discontinued 1 TAB PO Twice daily June 22, 2024 12:00am June 22, 2024 2:11pm Start: 05-27-2022 take 50-1000 mg by m outh twice daily Janumet 50-1,000mg Janumet 50-1,000mg, 1 (one) Tablet two times daily # 180, 05/27/2022, Ref. x3. Active oral two times daily for 90 *Pick strength-form from [facility] for eRX* May, Active Start: 01-14-2018 End: 05-08-2024 take 50-1000 mg by mouth twice daily Sitagliptin Phos-Metformin (Janumet) 50-1,000 mg Tablet Discontinued 50 - 1000 MG PO Twice daily January 13, 2018 11:00pm May 08, 2024 11:51am take 1 tablet by melodie th every twelve hours SITagliptin-metFORMIN (Janumet) 50-1000 MG tablet Take 1 tablet by mouth every 12 (twelve) hours. Active methylPREDNISolone (7 sources) Corticosteroid Start: 09-21-2016 Depo-Medrol 40 mg Sep, 1 mL naproxen sodium 220 mg oral tablet (7 sources) Nonsteroidal Anti-inflammatory Drug take 1 tablet by mouth every twelve hours Aleve 220 MG 1 tablet as needed Orally every 12 hrs Not-Taking/PRN [place] 5-Gsi-Nul-Fish Oil (Fish Oil) 1,000 mg (120 mg-180 mg) Capsule (4 sources) Start: 01-14-2018 End: 06-18-2021 take 1 capsule by mouth once daily [place] 0-Qqu-Ikx-Fish Oil (Fish Oil) 1,000 mg (120 mg-180 mg) Capsule Discontinued 1000 MG PO Daily January 13, 2018 11:00pm June 18, 2021 11:33am Start: 01-14-2018 End: 06-18-2021 take 1 capsule by mouth once daily [place] 1-Fuc-Wel-Fish Oil (Fish Oil) 1,000 mg (120 mg-180 mg) Capsule Discontinued 1000 MG PO Daily January 14, 2018 12:00am June 18, 2021 12:33pm quinapril 40 mg oral tablet (14 sources) Angiotensin Converting Enzyme Inhibitor Start: 01-14-2018 End: 04-25-2024 take 1 tablet by mouth once daily at bedtime Quinapril 40 mg Tablet Discontinued 40 MG PO Daily at bedtime January 13, 2018 11:00pm November 23, 2023 12:27pm Zinc (4 sources) Start: 06-18-2021 End: 11-23-2023 take 1 [...] hernia (1 source) Hiatal hernia 01-17-2024 Episodic Abdominal pain (1 source) Right upper quadrant pain; Translations: [Abdominal pain, right upper quadrant] 06-08-2024 Episodic Diabetes mellitus with complications (19 sources) Type 2 diabetes mellitus with hyperglycemia; Translations: [Type 2 diabetes mellitus] Onset: 08-13-2022 Chronic Diabetes mellitus without complication (4 sources) Type 2 diabetes mellitus; Translations: [Diabetes mellitus] Onset: 04-19-2023 01-17-2024 Chronic Disorders of lipid metabolism (15 sources) Hyperlipidemia, unspecified; Translations: [Hypercholesterolemia] Onset: 04-02-2022 Chronic Esophageal disorders (1 source) Gastroesophageal reflux disease 01-17-2024 Chronic Essential hypertension (20 sources) Essential (primary) hypertension; Translations: [Essential hypertension] Onset: 04-04-2022 Chronic Hyperplasia of prostate (8 sources) Benign prostatic hyperplasia; Translations: [Benign prostatic hyperplasia without lower urinary tract symptoms] Onset: 01-21-2024 Chronic Open wounds of extremities (5 sources) Laceration of left ring finger; Translations: [Laceration without foreign body of left ring finger without damage to nail, initial encounter] 11-02-2023 Episodic Osteoarthritis (19 sources) Osteoarthritis of hip; Translations: [Unilateral primary [...] left knee] Episodic Other non-traumatic joint disorders (4 sources) Anterior knee pain; Translations: [Pain in right knee] 06-02-2023 Episodic Comment on above: Problem List clean-u p per request of Phys. EHR Cmte Other non-traumatic joint disorders (1 source) Mass of shoulder region; Translations: [Other specified joint disorders, right shoulder] 05-11-2024 Episodic Other non-traumatic joint disorders (3 sources) Pain in left shoulder; Translations: [Left shoulder pain] Onset: 05-11-2024 05-10-2024 Episodic Other non-traumatic joint disorders (4 sources) Other specified joint disorders, right shoulder; Translations: [Other symptoms referable to joint, shoulder region] 05-11-2024 Episodic Other screening for suspected conditions (not mental disorders or infectious disease) (8 sources) Encounter for screening for malignant neoplasm [...] Test Name Value Interpretation Reference Range Facility Alanine aminotransferase [En zymatic activity/volume] in Serum or PlasmaOrdered By: David Real on 06-22-2024 ALT [Catalytic activity/Vol] Alanine aminotransferase [Enzymatic activity/volume] in Serum or Plasma [address] [facility] Albumin [Mass/volume] in Ser um or Plasma by Bromocresol green (BCG) dye binding methoOrdered By: David Real on 06-22-2024 Albumin BCG dye [Mass/Vol] Albumin [Mass/volume] in Serum or Plasma by Bromocresol green (BCG) dye binding metho 3.5-5.7 [facility] Alkaline phosphatase [Enzyma tic activity/volume] in Serum or PlasmaOrdered By: David Real on 06-22-2024 ALP [Catalytic activity/Vol] Alkaline phosphatase [Enzymatic activity/volume] in Serum or Plasma 34-104 [facility] Appearance of UrineOrdered B y: David Real on 06-22-2024 Appearance (U) Urine appearance Clear [facility] Aspartate aminotransferase [ Enzymatic activity/volume] in Serum or PlasmaOrdered By: David Real on 06-22-2024 AST [Catalytic activity/Vol] Aspartate aminotransferase [Enzymatic activity/volume] in Serum or Plasma 13-39 [facility] Basophils Auto (Bld) [#/Vol] Ordered By: David Real on 06-22-2024 Basophils (Bld) [#/Vol] Automated basoph il count 0.0-0.2 [facility] Basophils/100 WBC Auto (Bld) Ordered By: David Real on 06-22-2024 Basophils/100 WBC (Bld) Automated basophil % . [facility] Bilirubin Test strip Ql (U)O rdered By: David Real on 06-22-2024 Bilirubin Ql (U) Bilirubin.total [Presence] in Urine by Test strip Negative [facility] Bilirubin.total [Mass/volume ] in Serum or PlasmaOrdered By: David Real on 06-22-2024 Bilirubin [Mass/Vol] Bilirubin.total [Mass/volume] in Serum or Plasma 0.3-1.0 [facility] Blood estimated average gluc ose determination by estimation from glycated hemoglobinOrdered By: David Real on 06-22-2024 Average glucose Estimated from glycated hemoglobin (Bld) [Mass/Vol] Glucose mean value [Mass/volume] in Blood Estimated from glycated hemoglobin [facility] CMP with reflex to A1Con Albumin [Mass/Vol] 4.4 g/dL Normal 3.5-5.7 [facility] Comment on above: Performed By: #### C MP wRFX A1C, CBC, EBS A1C #### [facility] [address] Albumin/Globulin [Mass ratio] 2.4 {ratio} Normal [facility] Comment on above: Performed By: #### C MP wRFX A1C, CBC, EBS A1C #### [facility] [address] [place] [id number] [place] ALP [Catalytic activity/Vol] 78 U/L Normal 34-[address] [facility] Comment on above: Result Comment: PERF ORMED BY: [facility] [address] [place] [address] PATHOLOGIST EQUIPMENT OILER DAYSI ARAUZ M.D. Performed By: #### C MP wRFX A1C, CBC, EBS A1C #### [facility] [address] [place] [id number] [place] ALT [Catalytic activity/Vol] 14 U/L Normal 7-[address] [facility] Comment on above: Performed By: #### C MP wRFX A1C, CBC, EBS A1C #### [facility] [address] Anion gap [Moles/Vol] 12.7 mmol/L Normal 6.0-15.[address] [facility] Comment on above: Performed By: #### C MP wRFX A1C, CBC, EBS A1C #### [facility] [address] AST [Catalytic activity/Vol] 13 U/L Normal 13-[address] [facility] Comment on above: Performed By: #### C MP wRFX A1C, CBC, EBS A1C #### [address] Bilirubin [Mass/Vol] 0.4 mg/dL Normal 0.3-1.[address] [facility] Comment on above: Performed By: #### C MP wRFX A1C, CBC, EBS A1C #### [address] Calcium [Mass/Vol] 9.5 mg/dL Normal 8.6-10.3 [facility] Comment on above: Performed By: #### C MP wRFX A1C, CBC, EBS A1C #### [address] Chloride [Moles/Vol] 106 mmol/L Normal 98-[address] [facility] Comment on above: Performed By: #### C MP wRFX A1C, CBC, EBS A1C #### [address] CO2 [Moles/Vol] 25.9 mmol/L Normal 21.0-31.0 [facility] Comment on above: Performed By: #### C MP wRFX A1C, CBC, EBS A1C #### [facility] [address] [place] [address] Creatinine [Mass/Vol] 1.06 mg/dL Normal 0.70-1.[address] [facility] Comment on above: Performed By: #### C MP wRFX A1C, CBC, EBS A1C #### [place] [address] [place] GFR/1.73 sq M.predicted MDRD (S/P/Bld) [Vol rate/Area] mL/min/{1.73_m2} Normal [facility] Comment on above: Performed By: #### C MP wRFX A1C, CBC, EBS A1C #### [facility] [address] Globulin (S) [Mass/Vol] 1.8 g/dL Normal T he [facility] Comment on above: Performed By: #### C MP wRFX A1C, CBC, EBS A1C #### [address] Glucose [Mass/Vol] 275 mg/dL High 70-100 [facility] Comment on above: Result Comment: ADA recommended reference range Performed By: #### C MP wRFX A1C, CBC, EBS A1C #### [address] Potassium [Moles/Vol] 4.6 mmol/L Normal 3.5-5.[address] [facility] Comment on above: Performed By: #### C MP wRFX A1C, CBC, EBS A1C #### [place] [address] [place] Protein [Mass/Vol] 6.2 g/dL Low 6.4-8.9 [facility] Comment on above: Performed By: #### C MP wRFX A1C, CBC, EBS A1C #### [place] [address] [place] Sodium [Moles/Vol] 140 mmol/L Normal 136-145 [facility] Comment on above: Performed By: #### C MP wRFX A1C, CBC, EBS A1C #### [facility] [address] [place] [address] [place] Urea nitrogen [Mass/Vol] 19 mg/dL Normal 7-[address] [facility] Comment on above: Performed By: #### C MP wRFX A1C, CBC, EBS A1C #### [facility] [address] [place] [address] [place] Calcium [Mass/volume] in Ser um or PlasmaOrdered By: David Real on 06-22-2024 Calcium [Mass/Vol] Calcium [Mass/volume] in Serum or Plasma 8.6-10.3 [facility] Carbon dioxide, total [Moles /volume] in Serum or PlasmaOrdered By: David Real on 06-22-2024 CO2 [Moles/Vol] Carbon dioxide, total [Moles/volume] in Serum or Plasma 21.0-31.0 [facility] Chloride [Moles/volume] in S terri or PlasmaOrdered By: David Real on 06-22-2024 Chloride [Moles/Vol] Chloride [Moles/volume] in Serum or Plasma 98-107 [facility] Color Auto (U)Ordered By: Enrike Real on 06-22-2024 Color (U) Color of Urine by Auto Yellow [facility] Complete Blood Count Auto Di ffon 06-22-2024 Basophils (Bld) [#/Vol] 0.0 10*3/uL Normal 0.0-0.[address] [facility] Comment on above: Result Comment: PERF ORMED BY: [place] [address] PATHOLOGIST EQUIPMENT OILER DAYSI ARAUZ M.D. Performed By: #### C MP wRFX A1C, CBC, EBS A1C #### [facility] [address] [place] [address] [place] Basophils/100 WBC (Bld) 0.6 % Normal . T [facility] Comment on above: Performed By: #### C MP wRFX A1C, CBC, EBS A1C #### [facility] [address] [place] [address] [place] Eosinophils (Bld) [#/Vol] 0.1 10*3/uL Normal 0.0-0.[address] [facility] Comment on above: Performed By: #### C MP wRFX A1C, CBC, EBS A1C #### [facility] [address] [place] [address] [place] Eosinophils/100 WBC (Bld) 2.2 % Normal . [facility] Comment on above: Performed By: #### C MP wRFX A1C, CBC, EBS A1C #### [address] Erythrocyte distribution width (RBC) [Ratio] 12.9 % Normal 12.0-14.8 [facility] Comment on above: Performed By: #### C MP wRFX A1C, CBC, EBS A1C #### [address] Hematocrit (Bld) [Volume fraction] 42.0 % Normal 38.8-50.[address] [facility] Comment on above: Performed By: #### C MP wRFX A1C, CBC, EBS A1C #### [address] Hemoglobin (Bld) [Mass/Vol] 14.0 g/dL Normal 13.0-17.[address] [facility] Comment on above: Performed By: #### C MP wRFX A1C, CBC, EBS A1C #### [address] Lymphocytes (Bld) [#/Vol] 0.7 10*3/uL Low 1.00-4.[address] [facility] Comment on above: Performed By: #### C MP wRFX A1C, CBC, EBS A1C #### [address] Lymphocytes/100 WBC (Bld) 12.6 % Normal . [facility] Comment on above: Performed By: #### C MP wRFX A1C, CBC, EBS A1C #### [address] MCH (RBC) [Entitic mass] 33.4 pg Normal 27.5-35.[address] [facility] Comment on above: Performed By: #### C MP wRFX A1C, CBC, EBS A1C #### [address] MCV (RBC) [Entitic vol] 100.4 fL Normal 83.5-[address] [facility] Comment on above: Performed By: #### C MP wRFX A1C, CBC, EBS A1C #### [address] Mean Corpuscular HGB Conc 33.3 g/dL Normal 32.5-35.[address] [facility] Comment on above: Performed By: #### C MP wRFX A1C, CBC, EBS A1C #### [address] Monocytes (Bld) [#/Vol] 0.3 10*3/uL Normal 0.0-0.[address] [facility] Comment on above: Performed By: #### C MP wRFX A1C, CBC, EBS A1C #### [address] Monocytes/100 WBC (Bld) 6.0 % Normal . [facility] Comment on above: Performed By: #### C MP wRFX A1C, CBC, EBS A1C #### [address] Neutrophils (Bld) [#/Vol] 4.4 10*3/uL Normal 1.8-7.[address] [facility] Comment on above: Performed By: #### C MP wRFX A1C, CBC, EBS A1C #### [place] [address] [place] Neutrophils/100 WBC (Bld) 78.6 % Normal . [facility] Comment on above: Performed By: #### C MP wRFX A1C, CBC, EBS A1C #### [place] [address] [place] NRBC% 0.1 /100{WBC} Normal 0-0.5 [facility] Comment on above: Performed By: #### C MP wRFX A1C, CBC, EBS A1C #### [place] [address] [place] Platelet mean volume (Bld) [Entitic vol] 9.0 fL Normal 6.6-10.1 [facility] Comment on above: Performed By: #### C MP wRFX A1C, CBC, EBS A1C #### [place] [address] [place] Platelets (Bld) [#/Vol] 201 10*3/uL Normal 150-[address] [facility] Comment on above: Performed By: #### C MP wRFX A1C, CBC, EBS A1C #### [facility] [address] RBC (Bld) [#/Vol] 4.18 10*6/uL Normal 3.90-5.60 [facility] Comment on above: Performed By: #### C MP wRFX A1C, CBC, EBS A1C #### [facility] [address] WBC (Bld) [#/Vol] 5.6 10*3/uL Normal 4.1-10.5 [facility] Comment on above: Performed By: #### C MP wRFX A1C, CBC, EBS A1C #### [address] Creatinine [Mass/volume] in Serum or PlasmaOrdered By: David Real on 06-22-2024 Creatinine [Mass/Vol] Creatinine [Mass/volume] in Serum or Plasma 0.70-1.30 [facility] EBS A1C with Estimated [place]se[place] Cassius ansley 06-22-2024 Glucose [Mass/Vol] 160 mg/dL Normal [facility] Comment on above: Result Comment: PERF ORMED BY: [place] [address] PATHOLOGIST EQUIPMENT OILER DAYSI ARAUZ M.D. Performed By: #### C MP wRFX A1C, CBC, EBS A1C #### [address] ECG 12 lead ECGon 06-22-2024 ECG 12 lead ECG [facility] [place] [address] [place] [address] Electrocardiograph Report Signed Patient: Lele Gaspar MR#: [id number] : 1945 Acct:[id number] Age/Sex: 79 / M ADM Date: 06/22/24 Loc: PS Room: Type: [facility] CLI Attending Dr: David Real DO Ordering Provider: David Real DO Date of Service: 06/22/2408/15/935 ECG/ECG 12 lead ECG: LEFT REVERSE TOTAL SHOULDER ARTHROPLASTY Copies to: Test Reason : Blood Pressure : */* mmHG Vent. Rate : 87 BPM Atrial Rate : 87 BPM P-R Int : 202 ms QRS Dur : 148 ms QT Int : 420 ms P-R-T Axes : 56 -68 42 degrees QTcB Int : 505 ms Normal sinus rhythm Right bundle branch block Left anterior fascicular block Bifascicular block Abnormal ECG Confirmed by Denia Perez ([id number]) on 06/22/2024 4:10:18 PM Referred By: Electronically Signed By: Denia Perez Transcribed By: MUS Signed By Denia Perez MD [id number] [facility] Eosinophils Auto (Bld) [#/Vo l]Ordered By: David Real on 06-22-2024 Eosinophils (Bld) [#/Vol] Automated eosinophil count 0.0-0.45 [facility] Eosinophils/100 WBC Auto (Bl d)Ordered By: David Real on 06-22-2024 Eosinophils/100 WBC (Bld) Automated eosinophil % . [facility] Erythrocyte distribution wid th Auto (RBC) [Ratio]Ordered By: David Real on 06-22-2024 Erythrocyte distribution width (RBC) [Ratio] Erythrocyte distribution width [Ratio] by Automated count 12.0-14.8 [facility] Globulin Calc (S) [Mass/Vol] Ordered By: David Real on 06-22-2024 Globulin (S) [Mass/Vol] Serum globulin measurement by calculation (mass/volume) [facility] Glucose [Mass/volume] in Ser um or PlasmaOrdered By: David Real on 06-22-2024 Glucose [Mass/Vol] Glucose [Mass/volume] in Serum or Plasma High 70-100 [facility] Comment on above: ADA recommended refe rence range Glucose [Mass/volume] in Uri ne by Test stripOrdered By: David Real on 06-22-2024 Glucose Test strip (U) [Mass/Vol] Glucose [Mass/volume] in Urine by Test strip High Normal [facility] Hematocrit Auto (Bld) [Volum e fraction]Ordered By: David Real on 06-22-2024 Hematocrit (Bld) [Volume fraction] Hematocrit [Volume Fraction] of Blood by Automated count 38.8-50.0 [facility] Hemoglobin A1c measurementOr dered By: David Real on 06-22-2024 HbA1c (Bld) [Mass fraction] 7.2 % High 4.3-5.6 [facility] Comment on above: Increased risk for d iabetes: 5.7 - 6.4diabetes: >6.4glycemic control for adults with diabetes: <7.0 Result Comment: Incr eased risk for diabetes: 5.7 - 6.4 diabetes: >6.4 glycemic control for adults with diabetes: <7.0 Performed By: #### C MP wRFX A1C, CBC, EBS A1C #### [address] Hemoglobin Test strip Ql (U) Ordered By: David Real on 06-22-2024 Hemoglobin Ql (U) Hemoglobin [Presence] in Urine by Test strip Negative [facility] Hemoglobin [Mass/volume] in BloodOrdered By: David Real on 06-22-2024 Hemoglobin (Bld) [Mass/Vol] Hemoglobin [Mass/volume] in Blood 13.0-17.0 [facility] Ketones Test strip Ql (U)Ord ered By: David Real on 06-22-2024 Ketones Ql (U) Ketones [Presence] in Urine by Test strip Negative [facility] Leukocyte esterase [Presence ] in Urine by Test stripOrdered By: David Real on 06-22-2024 Leukocyte esterase Test strip Ql (U) Leukocyte esterase [Presence] in Urine by Test strip Negative [facility] Leukocytes [#/volume] correc aime for nucleated erythrocytes in Blood by Automated counOrdered By: David Real on 06-22-2024 WBC corrected for nucl RBC Auto (Bld) [#/Vol] Leukocytes [#/volume] corrected for nucleated erythrocytes in Blood by Automated coun 4.1-10.5 [facility] Lymphocytes Auto (Bld) [#/Vo l]Ordered By: David Real on 06-22-2024 Lymphocytes (Bld) [#/Vol] Lymphocytes [#/volume] in Blood by Automated count Low 1.00-4.8 [facility] Lymphocytes/100 WBC Auto (Bl d)Ordered By: David Real on 06-22-2024 Lymphocytes/100 WBC (Bld) Lymphocytes/100 leukocytes in Blood by Automated count . [facility] MCH Auto (RBC) [Entitic mass ]Ordered By: David Real on 06-22-2024 MCH (RBC) [Entitic mass] MCH [Entitic ma ss] by Automated count 27.5-35.2 [facility] MCHC Auto (RBC) [Mass/Vol]Or dered By: David Real on 06-22-2024 MCHC (RBC) [Mass/Vol] MCHC [Mass/volume] by Automated count 32.5-35.6 [facility] MCV Auto (RBC) [Entitic vol] Ordered By: David Real on 06-22-2024 MCV (RBC) [Entitic vol] MCV [Entitic vol ume] by Automated count 83.5-101 [facility] Monocytes Auto (Bld) [#/Vol] Ordered By: David Real on 06-22-2024 Monocytes (Bld) [#/Vol] Automated blood monocyte count 0.0-0.8 [facility] Monocytes/100 WBC Auto (Bld) Ordered By: David Real on 06-22-2024 Monocytes/100 WBC (Bld) Automated monocyte % . [facility] Neutrophils Auto (Bld) [#/Vo l]Ordered By: David Real on 06-22-2024 Neutrophils (Bld) [#/Vol] Neutrophils [#/volume] in Blood by Automated count 1.8-7.7 [facility] Neutrophils/100 WBC Auto (Bl d)Ordered By: David Real on 06-22-2024 Neutrophils/100 WBC (Bld) Automated neutrophil % . [facility] Nitrite Test strip Ql (U)Ord ered By: David Real on 06-22-2024 Nitrite Ql (U) Nitrite [Presence] in Urine by Test strip Negative [facility] No Panel InformationOrdered By: David Real on 06-22-2024 Estimated GFR (CKD-EPI) > 60.0 mL/Min [facility] Creatinine Clearance (Chem N/A [facility] Nucleated erythrocytes [Pres ence] in Blood by Automated countOrdered By: David Real on 06-22-2024 Nucleated RBC Auto Ql (Bld) Nucleated erythrocytes [Presence] in Blood by Automated count 0-0.5 [facility] Platelet mean volume Auto (B ld) [Entitic vol]Ordered By: David Real on 06-22-2024 Platelet mean volume (Bld) [Entitic vol] Platelet mean volume [Entitic volume] in Blood by Automated count 6.6-10.1 [facility] Platelets Auto (Bld) [#/Vol] Ordered By: David Real on 06-22-2024 Platelets (Bld) [#/Vol] Platelets [#/vol ume] in Blood by Automated count 150-450 [facility] Potassium [Moles/volume] in Serum or PlasmaOrdered By: David Real on 06-22-2024 Potassium [Moles/Vol] Potassium [Moles/volume] in Serum or Plasma 3.5-5.1 [facility] Protein Test strip (U) [Mass /Vol]Ordered By: David Real on 06-22-2024 Protein (U) [Mass/Vol] Protein [Mass/volume] in Urine by Test strip Negative [facility] Protein [Mass/volume] in Ser um or PlasmaOrdered By: David Real on 06-22-2024 Protein [Mass/Vol] Protein [Mass/volume] in Serum or Plasma Low 6.4-8.9 [facility] RBC Auto (Bld) [#/Vol]Ordere d By: David Real on 06-22-2024 RBC (Bld) [#/Vol] Erythrocytes [#/volume] in Blood by Automated count 3.90-5.60 [facility] Serum or plasma albumin/glob ulin mass ratioOrdered By: David Real on 06-22-2024 Albumin/Globulin [Mass ratio] Serum or plasma albumin/globulin mass ratio [facility] Serum or plasma anion gap de terminationOrdered By: David Real on 06-22-2024 Anion gap [Moles/Vol] Serum or plasma anion gap determination 6.0-15.0 [facility] Sodium [Moles/volume] in Ser um or PlasmaOrdered By: David Real on 06-22-2024 Sodium [Moles/Vol] Sodium [Moles/volume] in Serum or Plasma 136-145 [facility] Specific gravity Test strip (U) [Rel density]Ordered By: David Real on 06-22-2024 Specific gravity (U) [Rel density] Specific gravity of Urine by Test strip 1.001-1.030 [facility] Urea nitrogen [Mass/volume] in Serum or PlasmaOrdered By: David Real on 06-22-2024 Urea nitrogen [Mass/Vol] Urea nitrogen [Mass/volume] in Serum or Plasma 7-25 [facility] Urinalysison 06-22-2024 Appearance (U) Clear Normal Clear [facility] Comment on above: Order Comment: Name Collection Type:: Clean-Voided Midstream Performed By: #### U A #### [place] [address] [place] Bilirubin,Urine Negative Normal Negative [facility] Comment on above: Order Comment: Name Collection Type:: Clean-Voided Midstream Performed By: #### U A #### [place] [address] [place] Color (U) Light-Yellow Normal Yellow [facility] Comment on above: Order Comment: Name Collection Type:: Clean-Voided Midstream Performed By: #### U A #### [place] [address] [place] Glucose Ql (U) >= High Normal [facility] Comment on above: Order Comment: Name Collection Type:: Clean-Voided Midstream Performed By: #### U A #### [facility] [address] [place] [address] [place] Ketones Ql (U) Negative Normal Negative [facility] Comment on above: Order Comment: Name Collection Type:: Clean-Voided Midstream Performed By: #### U A #### [place] [address] Leukocyte esterase Test strip Ql (U) Negative Normal Negative [facility] Comment on above: Order Comment: Name Collection Type:: Clean-Voided Midstream Performed By: #### U A #### [address] Nitrite,Urine Negative Normal Negative [facility] Comment on above: Order Comment: Name Collection Type:: Clean-Voided Midstream Performed By: #### U A #### [address] Occult Blood,Urine Negative Normal Negative [facility] Comment on above: Order Comment: Name Collection Type:: Clean-Voided Midstream Result Comment: PERF ORMED BY: [place] [address] PATHOLOGIST EQUIPMENT OILER DAYSI ARAUZ M.D. Performed By: #### U A #### [address] pH (U) 5.0 [pH] Normal 5.0-9.[address] [facility] Comment on above: Order Comment: Name Collection Type:: Clean-Voided Midstream Performed By: #### U A #### [address] Protein,Urine Negative Normal Negative [facility] Comment on above: Order Comment: Name Collection Type:: Clean-Voided Midstream Performed By: #### U A #### [address] Specificy [place],Urine 1.030 Normal 1.001-1.[address] [facility] Comment on above: Order Comment: Name Collection Type:: Clean-Voided Midstream Performed By: #### U A #### [address] Urobilinogen,Urine Normal Normal Normal [facility] Comment on above: Order Comment: Name Collection Type:: Clean-Voided Midstream Performed By: #### U A #### [address] [address] [facility] Urobilinogen Test strip (U) [Mass/Vol]Ordered By: David Real on 06-22-2024 Urobilinogen (U) [Mass/Vol] Urobilinogen [Mass/volume] in Urine by Test strip Normal [facility] WBC Auto (Bld) [#/Vol]Ordere d By: David Real on 06-22-2024 WBC (Bld) [#/Vol] Leukocytes [#/volume] in Blood by Automated count 4.1-10.5 [facility] pH Test strip (U)Ordered By: David Real on 06-22-2024 pH (U) pH of Urine by Test strip 5.0-9.0 [facility] Basophils Auto (Bld) [#/Vol] on 05-12-2024 Basophils (Bld) [#/Vol] Automated basoph il count 0.0-0.1 [facility] Basophils/100 WBC Auto (Bld) on 05-12-2024 Basophils/100 WBC (Bld) Automated basophil % 0. 2-2.0 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 COMPARISON: Left shoulder 05/11/2024 TECHNIQUE: Spiral axial unenhanced images were obtained through the left shoulder. Sagittal, coronal and 3D volume-rendered reconstructions were also reviewed. This CT exam was performed using one or more following dose reduction techniques: Automated exposure control, adjustment of the mA and/or kV according to patient size, or use of iterative reconstruction technique. FINDINGS: Moderate degenerative changes of the AC and glenohumeral joints with loss of the subacromial space suggestive of chronic rotator cuff pathology. No fracture is noted. Questionable hemarthrosis with calcified loose body within the joint space. Musculature appears atrophic. No focal soft tissue abnormality. No axillary lymphadenopathy. Visualized left lung parenchyma demonstrates no acute findings. CT/CT shoulder LT wo con IMPRESSION: MODERATE DEGENERATIVE CHANGES OF THE AC AND GLENOHUMERAL JOINTS WITH LOSS OF THE SUBACROMIAL SPACE SUGGESTIVE OF CHRONIC ROTATOR CUFF PATHOLOGY. NO FRACTURE IS SEEN. QUESTIONABLE HEMARTHROSIS OF UNCERTAIN ETIOLOGY. Impression dictated by: Thom Hayes Jr., D.O.05/12/2024 6:13 PM Dictation Location: [facility] Transcribed By: SUKHDEV 05/12/241812 Dictated By: Thom Hayes Jr, DO 05/12/241807 Signed By: 05/12/241812 Normal [facility] Cholesterol in LDL Calc [Mas s/Vol]on 05-12-2024 Cholesterol in LDL [Mass/Vol] Cholesterol in LDL [Mass/volume] in Serum or Plasma by calculation [facility] Comment on above: <100 mg/dl [id number] 0-129 mg/dl NEAR OR ABOVE [id number] mg/dl BORDERLINE [id number] mg/dl HIGH>190 mg/dl VERY HIGH Cholesterol in VLDL Calc [Ma ss/Vol]on 05-12-2024 Cholesterol in VLDL [Mass/Vol] Cholesterol in VLDL [Mass/volume] in Serum or Plasma by calculation [facility] Eosinophils/100 WBC Auto (Bl d)on 05-12-2024 Eosinophils/100 WBC (Bld) Automated eosinophil % 0.9-7.0 [facility] Erythrocyte distribution wid th Auto (RBC) [Ratio]on 05-12-2024 Erythrocyte distribution width (RBC) [Ratio] Erythrocyte distribution width [Ratio] by Automated count 11.0-15.0 [facility] Estimated glomerular filtrat ion rate (GFR) non- Americanon 05-12-2024 GFR/1.73 sq M.predicted among non-blacks MDRD (S/P/Bld) [Vol rate/Area] Estimated glomerular filtration rate (GFR) non- >=60 mL/min/1.73m 2 [facility] Globulin Calc (S) [Mass/Vol] on 05-12-2024 Globulin (S) [Mass/Vol] Serum globulin measurement by calculation (mass/volume) [facility] Glucose mean value [Mass/vol ume] in Blood Estimated from glycated hemoglobinon 05-12-2024 Average glucose Estimated from glycated hemoglobin (Bld) [Mass/Vol] Glucose mean value [Mass/volume] in Blood Estimated from glycated hemoglobin [facility] Hematocrit Auto (Bld) [Volum e fraction]on 05-12-2024 Hematocrit (Bld) [Volume fraction] Hematocrit [Volume Fraction] of Blood by Automated count Low 42.0-54.0 [facility] Hemoglobin [Mass/volume] in Bloodon 05-12-2024 Hemoglobin (Bld) [Mass/Vol] Hemoglobin [Mass/volume] in Blood Low 14.0-18.0 [facility] Laboratory - Chemistry and C hemistry - challengeon 05-12-2024 Albumin [Mass/Vol] 3.8 g/dL 3.4-5.0 [facility] ALP [Catalytic activity/Vol] 99 U/L 46-116 [facility] ALT [Catalytic activity/Vol] 24 U/L 16-63 [facility] AST [Catalytic activity/Vol] 15 U/L 15-37 [facility] Bilirubin [Mass/Vol] 0.5 mg/dL 0.2-1.0 [facility] Calcium [Mass/Vol] 8.8 mg/dL 8.5-10.1 [facility] Chloride [Moles/Vol] 104 mmol/L 98-107 [facility] Cholesterol [Mass/Vol] 145 mg/dL <=200 [facility] Cholesterol in HDL [Mass/Vol] 77 mg/dL High 40-60 [facility] Comment on above: > or =60 mg/dl - LOW CARDIOVASCULAR RISK<40 mg/dl - HIGH CARDIOVASCULAR RISK CO2 [Moles/Vol] 25.8 mmol/L 21.0-32.0 [facility] Creatinine [Mass/Vol] 1.11 mg/dL 0.70-1.30 [facility] GFR/1.73 sq M.predicted MDRD (S/P/Bld) [Vol rate/Area] mL/min/{1.73_m2} >=60 mL/min/1.73m 2 [facility] Glucose [Mass/Vol] 148 mg/dL High 74-106 [facility] Potassium [Moles/Vol] 4.2 mmol/L 3.5-5.1 [facility] Protein [Mass/Vol] 6.2 g/dL Low 6.4-8.2 [facility] Sodium [Moles/Vol] 141 mmol/L 136-145 [facility] Triglyceride [Mass/Vol] 66 mg/dL <=[address] [facility] Urea nitrogen [Mass/Vol] 20.0 mg/dL High 7.0-18.0 [facility] Urea nitrogen/Creatinine [Mass ratio] 18.0 mg/mg [facility] Laboratory - Hematology and Cell countson 05-12-2024 HbA1c (Bld) [Mass fraction] 6.9 % High 4.5-6.2 [facility] Comment on above: ADA RECOMMENDED LIMI T 4.0 - 6.0ADA THERAPEUTIC TARGET < 7.0ACTION SUGGESTED> 7.0 Immature granulocytes/100 WBC (Bld) 0.4 % 0.0-0.5 [facility] Leukocytes [#/volume] correc aime for nucleated erythrocytes in Blood by Automated counon 05-12-2024 WBC corrected for nucl RBC Auto (Bld) [#/Vol] Leukocytes [#/volume] corrected for nucleated erythrocytes in Blood by Automated coun 4.0-11.0 [facility] Lymphocytes Auto (Bld) [#/Vo l]on 05-12-2024 Lymphocytes (Bld) [#/Vol] Lymphocytes [#/volume] in Blood by Automated count Low 1.2-3.8 [facility] Lymphocytes/100 WBC Auto (Bl d)on 05-12-2024 Lymphocytes/100 WBC (Bld) Lymphocytes/100 leukocytes in Blood by Automated count 20.5-60.0 [facility] MCH Auto (RBC) [Entitic mass ]on 05-12-2024 MCH (RBC) [Entitic mass] MCH [Entitic ma ss] by Automated count 25.9-34.0 [facility] MCHC Auto (RBC) [Mass/Vol]on 05-12-2024 MCHC (RBC) [Mass/Vol] MCHC [Mass/volume] by Automated count 29.9-35.2 [facility] MCV Auto (RBC) [Entitic vol] on 05-12-2024 MCV (RBC) [Entitic vol] MCV [Entitic vol ume] by Automated count High 80.0-94.0 [facility] Microalbumin [Mass/volume] i n Urineon 05-12-2024 Albumin DL <= 20 mg/L (U) [Mass/Vol] Microalbumin [Mass/volume] in Urine <=30.0 [facility] Monocytes Auto (Bld) [#/Vol] on 05-12-2024 Monocytes (Bld) [#/Vol] Automated blood monocyte count 0.3-0.8 [facility] Monocytes/100 WBC Auto (Bld) on 05-12-2024 Monocytes/100 WBC (Bld) Automated monocyte % 1. 7-12.0 [facility] Neutrophils Auto (Bld) [#/Vo l]on 05-12-2024 Neutrophils (Bld) [#/Vol] Neutrophils [#/volume] in Blood by Automated count 1.4-6.5 [facility] Neutrophils/100 WBC Auto (Bl d)on 05-12-2024 Neutrophils/100 WBC (Bld) Automated neutrophil % 43.0-75.0 [facility] No Panel Informationon 05-12 Eosinophils # (Auto) 0.2 10 3/uL 0.0-0.7 [facility] Immature Granulocyte # (Auto) 0.02 10 3/uL 0.00-0.03 [facility] Platelet mean volume Auto (B ld) [Entitic vol]on 05-12-2024 Platelet mean volume (Bld) [Entitic vol] Platelet mean volume [Entitic volume] in Blood by Automated count 9.5-13.5 [facility] Platelets Auto (Bld) [#/Vol] on 05-12-2024 Platelets (Bld) [#/Vol] Platelets [#/vol ume] in Blood by Automated count 150-450 [facility] RBC Auto (Bld) [#/Vol]on RBC (Bld) [#/Vol] Erythrocytes [#/volume] in Blood by Automated count Low 4.70-6.10 [facility] Serum or plasma albumin/glob ulin mass ratioon 05-12-2024 Albumin/Globulin [Mass ratio] Serum or plasma albumin/globulin mass ratio [facility] Serum or plasma anion gap de terminationon 05-12-2024 Anion gap [Moles/Vol] Serum or plasma anion gap determination [facility] Serum or plasma total choles terol/high density lipoprotein (HDL) cholesterol mass julieta 05-12-2024 Cholesterol.total/Choles terol in HDL [Mass ratio] Serum or plasma total cholesterol/high density lipoprotein (HDL) cholesterol mass rat [facility] Comment on above: 3.3 - 4.4 LOW RISK4. 4 - 7.1 AVERAGE RISK7.1 - 11.0 MODERATE RISK>11.0 HIGH RISK XR shoulder BI min 2Von 04-22 XR shoulder BI min 2V [facility] [address] [place] [address] XRay Report Signed Patient: Lele Gaspar MR#: [id number] : 1945 Acct:[id number] Age/Sex: 78 / M ADM Date: 05/11/24 Loc: [facility] Room: Type: [facility] Attending Dr: David Real DO Copies to: David Real DO Ordering Provider: David Real DO Date of Service: 05/11/24 XR/XR shoulder BI min 2V: M25.512 - Pain in left shoulder 4 views both shoulder plain film HISTORY: Right anterior shoulder joint mass for 2 months. No injury. Chronic left shoulder pain COMPARISON: None ACUTE FINDINGS: None DEGENERATIVE CHANGE: Marked narrowing of the left acromiohumeral space with elevation of the humeral head and remodeling of the undersurface of the acromion. This is consistent with chronic findings of rotator cuff tear. Large acromioclavicular spurring on the left. Glenohumeral spurring on the left. Elevation of the right humeral head with acromioclavicular narrowing consistent with rotator cuff insufficiency. Spurring of the acromioclavicular joint in the glenohumeral joint. Mild joint space narrowing. SOFT TISSUE FINDINGS: Unremarkable JOINT EFFUSION: None POSTOP CHANGES: None BONY MINERALIZATION: Adequate XR/XR shoulder BI min 2V IMPRESSION: Moderate left acromioclavicular and glenohumeral degeneration with findings of chronic left rotator cuff tear. Right moderate shoulder degeneration with findings of moderate right rotator cuff insufficiency. Impression dictated by: Anupam Murguia M.D.05/11/2024 12:59 PM Dictation Location: [place] [address] Transcribed By: [facility] 05/11/24 1259 Dictated By: Anupam Murguia DO 05/11/24 1256 Signed By: 05/11/[address] [facility] No Panel Informationon 10-31 Prostate Specific Antigen Screen 3.74 ng/mL <=4.00 [facility] MR FEMUR RIGHT W AND WO IV C ONTRASTon 09-02-2023 MR FEMUR RIGHT W AND WO [...] 08-10-2022 BASO # 0.1 103/ul Normal 0.0-0.1 [facility] Comment on above: Performed By: #### C BC #### [facility] [address] [place] [address] Dr. Monique Sewell Basophils/100 WBC (Bld) 1.3 % Normal 0.2-2.0 [facility] Comment on above: Performed By: #### C BC #### [facility] [address] [place] [address] Dr. Monique Sewell EO # 0.2 103/ul Normal 0.0-0.7 [facility] Comment on above: Performed By: #### C BC #### [facility] [address] [place] [address] Dr. Monique Sewell Eosinophils/100 WBC (Bld) 4.8 % Normal 0.9-7.0 [facility] Comment on above: Performed By: #### C BC #### [facility] [address] [place] [address] Dr. Monique Sewell Erythrocyte distribution width (RBC) [Ratio] 12.1 % Normal 11.0-15.0 [facility] Comment on above: Performed By: #### C BC #### [facility] [address] [place] [address] Dr. Monique Sewell Hematocrit (Bld) [Volume fraction] 40.8 % Critically low 42.0-54.0 [facility] Comment on above: Performed By: #### C BC #### [facility] [address] [place] [address] Dr. Monique Sewell Hemoglobin (Bld) [Mass/Vol] 13.9 g/dL Critically low 14.0-18.0 [facility] Comment on above: Performed By: #### C BC #### [facility] [address] [place] [address] Dr. Monique Sewell IG # 0.01 10e3/ul Normal 0.00-0.03 [facility] Comment on above: Performed By: #### C BC #### [facility] [address] [place] [address] Dr. Monique Sewell IG % 0.3 % Normal 0.0-0.5 [facility] Comment on above: Performed By: #### C BC #### [facility] [address] [place] [address] Dr. Monique Sewell LYMPH # 1.1 103/ul Critically low 1.2-3.8 [facility] Comment on above: Performed By: #### C BC #### [facility] [address] [place] [address] Dr. Monique Sewell Lymphocytes/100 WBC (Bld) 26.9 % Normal 20.5-60.0 [facility] Comment on above: Performed By: #### C BC #### [facility] [address] [place] [address] Dr. Monique Sewell MANUAL DIFF REQ NO Normal [facility] Comment on above: Performed By: #### C BC #### [facility] [address] [place] [address] Dr. Monique Sewell MCH (RBC) [Entitic mass] 33.9 pg Normal 25.9-34.0 [facility] Comment on above: Performed By: #### C BC #### [facility] [address] [place] [address] Dr. Monique Sewell MCHC (RBC) [Mass/Vol] 34.1 g/dL Normal 29.9-35.2 [facility] Comment on above: Performed By: #### C BC #### [facility] [address] [place] [address] Dr. Monique Sewell MCV (RBC) [Entitic vol] 99.5 fL Critically high 80.0-94 .0 [facility] Comment on above: Performed By: #### C BC #### [facility] [address] [place] [address] Dr. Monique Sewell MONO # 0.4 103/ul Normal 0.3-0.8 [facility] Comment on above: Performed By: #### C BC #### [facility] [address] [place] [address] Dr. Monique Sewell Monocytes/100 WBC (Bld) 10.1 % Normal 1.7-12.0 [facility] Comment on above: Performed By: #### C BC #### [facility] [address] [place] [address] Dr. Monique Sewell NEUT # 2.3 103/ul Normal 1.4-6.5 [facility] Comment on above: Performed By: #### C BC #### [facility] [address] [place] [address] Dr. Monique Sewell Neutrophils/100 WBC (Bld) 56.6 % Normal 43.0-75.0 [facility] Comment on above: Performed By: #### C BC #### [facility] [address] [place] [address] Dr. Monique Sewell Platelet mean volume (Bld) [Entitic vol] 10.5 fL Normal 9.5-13.5 [facility] Comment on above: Performed By: #### C BC #### [facility] [address] [place] [address] Dr. Monique Sewell PLT 170 103/ul Normal 150-450 [facility] Comment on above: Performed By: #### C BC #### [facility] [address] [place] [address] Dr. Monique Sewell RBC 4.10 106/ul Critically low 4.70-6.10 [facility] Comment on above: Performed By: #### C BC #### [facility] [address] [place] [address] Dr. Monique Sewell WBC 4.0 103/ul Normal 4.0-11.0 [facility] Comment on above: Performed By: #### C BC #### [facility] [address] [place] [address] Dr. Monique Sewell GLYCOHEMOGLOBIN A1Con 2022 ADA RECOMMENDATION SEE BELOW Normal [facility] Comment on above: Result Comment: ADA RECOMMENDED LIMIT 4.0 - 6.0 ADA THERAPEUTIC TARGET < 7.0 ACTION SUGGESTED > 7.0 Performed By: #### A 1C #### [facility] [address] [place] [address] Dr. Monique Sewell Glucose [Mass/Vol] 143 mg/dL Normal [facility] Comment on above: Performed By: #### A 1C #### [facility] [address] [place] [address] Dr. Monique Sewell HbA1c (Bld) [Mass fraction] 6.6 % Critically high 4.5-6.2 [facility] Comment on above: Performed By: #### A 1C #### [facility] [address] [place] [address] Dr. Monique Sewell PROF 14(COMP METB)on 023 Albumin [Mass/Vol] 4.2 g/dL Normal 3.4-5.0 [facility] Comment on above: Performed By: #### C MP #### [facility] [address] [place] [address] Dr. Monique Sewell Albumin/Globulin [Mass ratio] 1.7 {ratio} Normal [facility] Comment on above: Performed By: #### C MP #### [facility] [address] [place] [address] Dr. Monique Sewell ALP [Catalytic activity/Vol] 87 U/L Normal 46-116 [facility] Comment on above: Performed By: #### C MP #### [facility] [address] [place] [address] Dr. Monique Sewell ALT [Catalytic activity/Vol] 23 U/L Normal 16-63 [facility] Comment on above: Performed By: #### C MP #### [facility] [address] [place] [address] Dr. Monique Sewell Anion gap [Moles/Vol] 10.9 mmol/L Normal [facility] Comment on above: Performed By: #### C MP #### [facility] [address] [place] [address] Dr. Monique Sewell AST [Catalytic activity/Vol] 18 U/L Normal 15-37 [facility] Comment on above: Performed By: #### C MP #### [facility] [address] [place] [address] Dr. Monique Sewell Bilirubin [Mass/Vol] 0.5 mg/dL Normal 0.2-1.0 [facility] Comment on above: Performed By: #### C MP #### [facility] [address] [place] [address] Dr. Monique Sewell Calcium [Mass/Vol] 9.3 mg/dL Normal 8.5-10.1 [facility] Comment on above: Performed By: #### C MP #### [facility] [address] [place] [address] Dr. Monique Sewell Chloride [Moles/Vol] 104 mmol/L Normal 98-107 [facility] Comment on above: Performed By: #### C MP #### [facility] [address] [place] [address] Dr. Monique Sewell CO2 [Moles/Vol] 29.3 mmol/L Normal 21.0-32.0 [facility] Comment on above: Performed By: #### C MP #### [facility] [address] [place] [address] Dr. Monique Sewell Creatinine [Mass/Vol] 0.91 mg/dL Normal 0.70-1.30 [facility] Comment on above: Performed By: #### C MP #### [facility] [address] [place] [address] Dr. Monique Sewell EGFR-AF SINGAPOREAN >60 Normal >=60 [facility] Comment on above: Performed By: #### C MP #### [facility] [address] [place] [address] Dr. Monique Sewell EGFR-NON AF SINGAPOREAN >60 Normal >=60 [facility] Comment on above: Performed By: #### C MP #### [facility] [address] [place] [address] Dr. Monique Sewell Globulin (S) [Mass/Vol] 2.4 g/dL Normal [facility] Comment on above: Performed By: #### C MP #### [facility] [address] [place] [address] Dr. Monique Sewell Glucose [Mass/Vol] 146 mg/dL Critically high 74-106 [facility] Comment on above: Performed By: #### C MP #### [facility] [address] [place] [address] Dr. Monique Sewell Potassium [Moles/Vol] 4.2 mmol/L Normal 3.5-5.1 [facility] Comment on above: Performed By: #### C MP #### [facility] [address] [place] [address] Dr. Monique Sewell Protein [Mass/Vol] 6.6 g/dL Normal 6.4-8.2 [facility] Comment on above: Performed By: #### C MP #### [facility] [address] [place] [address] Dr. Monique Sewell Sodium [Moles/Vol] 140 mmol/L Normal 136-145 [facility] Comment on above: Performed By: #### C MP #### [facility] [address] [place] [address] Dr. Monique Sewell Urea nitrogen [Mass/Vol] 20.0 mg/dL Critically high 7.0-18 .0 [facility] Comment on above: Performed By: #### C MP #### [facility] [address] [place] [address] Dr. Monique Sewell Urea nitrogen/Creatinine [Mass ratio] 22.0 mg/mg Normal [facility] Comment on above: Performed By: #### C MP #### [facility] [address] [place] [address] Dr. Monique Sewell CBC AUTO DIFFon 04-02-2022 BASO # 0.0 103/ul Normal 0.0-0.1 [facility] Comment on above: Performed By: #### C BC #### [facility] [address] [place] [address] Dr. Monique Sewell Basophils/100 WBC (Bld) 0.8 % Normal 0.2-2.0 [facility] Comment on above: Performed By: #### C BC #### [facility] [address] [place] [address] Dr. Monique Sewell EO # 0.4 103/ul Normal 0.0-0.7 [facility] Comment on above: Performed By: #### C BC #### [facility] [address] [place] [address] Dr. Monique Sewell Eosinophils/100 WBC (Bld) 8.8 % Critically high 0.9-7.0 [facility] Comment on above: Performed By: #### C BC #### [facility] [address] [place] [address] Dr. Monique Sewell Erythrocyte distribution width (RBC) [Ratio] 12.3 % Normal 11.0-15.0 [facility] Comment on above: Performed By: #### C BC #### [facility] [address] [place] [address] Dr. Monique Sewell Hematocrit (Bld) [Volume fraction] 41.2 % Critically low 42.0-54.0 [facility] Comment on above: Performed By: #### C BC #### [facility] [address] [place] [address] Dr. Monique Sewell Hemoglobin (Bld) [Mass/Vol] 13.5 g/dL Critically low 14.0-18.0 [facility] Comment on above: Performed By: #### C BC #### [facility] [address] [place] [address] Dr. Monique Sewell IG # 0.02 10e3/ul Normal 0.00-0.03 [facility] Comment on above: Performed By: #### C BC #### [facility] [address] [place] [address] Dr. Monique Sewell IG % 0.4 % Normal 0.0-0.5 [facility] Comment on above: Performed By: #### C BC #### [facility] [address] [place] [address] Dr. Monique Sewell LYMPH # 1.3 103/ul Normal 1.2-3.8 [facility] Comment on above: Performed By: #### C BC #### [facility] [address] [place] [address] Dr. Monique Sewell Lymphocytes/100 WBC (Bld) 25.8 % Normal 20.5-60.0 [facility] Comment on above: Performed By: #### C BC #### [facility] [address] [place] [address] Dr. Monique Sewell MANUAL DIFF REQ NO Normal [facility] Comment on above: Performed By: #### C BC #### [facility] [address] [place] [address] Dr. Monique Sewell MCH (RBC) [Entitic mass] 33.5 pg Normal 25.9-34.0 [facility] Comment on above: Performed By: #### C BC #### [facility] [address] [place] [address] Dr. Monique Sewell MCHC (RBC) [Mass/Vol] 32.8 g/dL Normal 29.9-35.2 [facility] Comment on above: Performed By: #### C BC #### [facility] [address] [place] [address] Dr. Monique Sewell MCV (RBC) [Entitic vol] 102.2 fL Critically high 80.0-94 .0 [facility] Comment on above: Performed By: #### C BC #### [facility] [address] [place] [address] Dr. Monique Sewell MONO # 0.5 103/ul Normal 0.3-0.8 [facility] Comment on above: Performed By: #### C BC #### [facility] [address] [place] [address] Dr. Monique Sewell Monocytes/100 WBC (Bld) 9.2 % Normal 1.7-12.0 [facility] Comment on above: Performed By: #### C BC #### [facility] [address] [place] [address] Dr. Monique Sewell NEUT # 2.7 103/ul Normal 1.4-6.5 [facility] Comment on above: Performed By: #### C BC #### [facility] [address] [place] [address] Dr. Monique Sewell Neutrophils/100 WBC (Bld) 55.0 % Normal 43.0-75.0 [facility] Comment on above: Performed By: #### C BC #### [facility] [address] [place] [address] Dr. Monique Sewell Platelet mean volume (Bld) [Entitic vol] 10.3 fL Normal 9.5-13.5 [facility] Comment on above: Performed By: #### C BC #### [facility] [address] [place] [address] [address] Monique Sewell PLT 191 103/ul Normal 150-450 [facility] Comment on above: Performed By: #### C BC #### [facility] [address] [place] [address] [address] Monique Sewell RBC 4.03 106/ul Critically low 4.70-6.10 [facility] Comment on above: Performed By: #### C BC #### [facility] [address] [place] [address] [address] Monique Sewell WBC 4.9 103/ul Normal 4.0-11.0 [facility] Comment on above: Performed By: #### C BC #### [facility] [address] [place] [address] Dr. Monique Sewell GLYCOHEMOGLOBIN A1Con 2021 ADA RECOMMENDATION SEE BELOW Normal [facility] Comment on above: Result Comment: ADA RECOMMENDED LIMIT 4.0 - 6.0 ADA THERAPEUTIC TARGET < 7.0 ACTION SUGGESTED > 7.0 Performed By: #### A 1C #### [facility] [address] [place] [address] Dr. Monique Sewell Glucose [Mass/Vol] 148 mg/dL Normal [facility] Comment on above: Performed By: #### A 1C #### [facility] [address] [place] [address] Dr. Monique Sewell HbA1c (Bld) [Mass fraction] 6.8 % Critically high 4.5-6.2 [facility] Comment on above: Performed By: #### A 1C #### [facility] [address] [place] [address] Dr. Monique Sewell LIPID PROFILEon 04-02-2022 CHOL-HDL RATIO NORM SEE BELOW Normal [facility] Comment on above: Result Comment: 3.3 - 4.4 LOW RISK 4.4 - 7.1 AVERAGE RISK 7.1 - 11.0 MODERATE RISK >11.0 HIGH RISK Performed By: #### L IPID, CMP #### [facility] [address] [place] [address] Dr. Monique Sewell Cholesterol [Mass/Vol] 135 mg/dL Normal <=200 [facility] Comment on above: Performed By: #### L IPID, CMP #### [facility] [address] [place] [address] [address] Monique Sewell Cholesterol in HDL [Mass/Vol] 79 mg/dL Critically high 40-60 [facility] Comment on above: Performed By: #### L IPID, CMP #### [facility] [address] [place] [address] [address] Monique Sewell Cholesterol in LDL [Mass/Vol] 44.4 mg/dL Normal [facility] Comment on above: Performed By: #### L IPID, CMP #### [facility] [address] [place] [address] Dr. Monique Sweell Cholesterol.total/Choles terol in HDL [Mass ratio] 1.7 {ratio} Normal [facility] Comment on above: Performed By: #### L IPID, CMP #### [facility] [address] [place] [address] Dr. Monique Sewell HDL NORMAL > or = 60 mg/dl - LOW CARDIOVASCULAR RISK <40 mg/dl - HIGH CARDIOVASCULAR RISK Normal [facility] Comment on above: Performed By: #### L IPID, CMP #### [facility] [address] [place] [address] Dr. Monique Sewell LDL CALC NORMAL SEE BELOW Normal [facility] Comment on above: Result Comment: <100 mg/dl OPTIMAL 100 - 129 mg/dl NEAR OR ABOVE OPTIMAL 130 - 159 mg/dl BORDERLINE HIGH 160 - 189 mg/dl HIGH >190 mg/dl VERY HIGH Performed By: #### L IPID, CMP #### [facility] [address] [place] [address] [address] Monique Sewell Triglyceride [Mass/Vol] 58 mg/dL Normal <=150 T [facility] Comment on above: Performed By: #### L IPID, CMP #### [facility] [address] [place] [address] [address] Monique Sewell VLDL CALC 11.6 mg/dL Normal [facility] Comment on above: Performed By: #### L IPID, CMP #### [facility] [address] [place] [address] [address] Monique Sewell PROF 14(COMP METB)on 022 Albumin [Mass/Vol] 4.1 g/dL Normal 3.4-5.0 [facility] Comment on above: Performed By: #### L IPID, CMP #### [facility] [address] [place] [address] Dr. Monique Sewell Albumin/Globulin [Mass ratio] 1.7 {ratio} Normal [facility] Comment on above: Performed By: #### L IPID, CMP #### [facility] [address] [place] [address] Dr. Monique Sewell ALP [Catalytic activity/Vol] 84 U/L Normal 46-116 [facility] Comment on above: Performed By: #### L IPID, CMP #### [facility] [address] [place] [address] Dr. Monique Sewell ALT [Catalytic activity/Vol] 28 U/L Normal 16-63 [facility] Comment on above: Performed By: #### L IPID, CMP #### [facility] [address] [place] [address] Dr. Monique Sewell Anion gap [Moles/Vol] 10.8 mmol/L Normal [facility] Comment on above: Performed By: #### L IPID, CMP #### [facility] [address] [place] [address] Dr. Monique Sewell AST [Catalytic activity/Vol] 14 U/L Critically low 15-37 [facility] Comment on above: Performed By: #### L IPID, CMP #### [facility] [address] [place] [address] Dr. Monique Sewell Bilirubin [Mass/Vol] 0.4 mg/dL Normal 0.2-1.0 [facility] Comment on above: Performed By: #### L IPID, CMP #### [facility] [address] [place] [address] Dr. Monique Sewell Calcium [Mass/Vol] 9.2 mg/dL Normal 8.5-10.1 [facility] Comment on above: Performed By: #### L IPID, CMP #### [facility] [address] [place] [address] Dr. Monique Sewell Chloride [Moles/Vol] 105 mmol/L Normal 98-107 [facility] Comment on above: Performed By: #### L IPID, CMP #### [facility] [address] [place] [address] Dr. Monique Sewell CO2 [Moles/Vol] 28.3 mmol/L Normal 21.0-32.0 [facility] Comment on above: Performed By: #### L IPID, CMP #### [facility] [address] [place] [address] Dr. Monique Sewell Creatinine [Mass/Vol] 0.92 mg/dL Normal 0.70-1.30 [facility] Comment on above: Performed By: #### L IPID, CMP #### [facility] [address] [place] [address] Dr. Monique Sewell EGFR-AF SINGAPOREAN >60 Normal >=60 [facility] Comment on above: Performed By: #### L IPID, CMP #### [facility] [address] [place] [address] Dr. Monique Sewell EGFR-NON AF [place]ING[place]OREAN >60 Normal >=60 [facility] Comment on above: Performed By: #### L IPID, CMP #### [facility] [address] [place] [address] Dr. Moinque Sewell Globulin (S) [Mass/Vol] 2.4 g/dL Normal [facility] Comment on above: Performed By: #### L IPID, CMP #### [facility] [address] [place] [address] Dr. Monique Sewell Glucose [Mass/Vol] 151 mg/dL Critically high 74-106 [facility] Comment on above: Performed By: #### L IPID, CMP #### [facility] [address] [place] [address] Dr. Monique Sewell Potassium [Moles/Vol] 4.1 mmol/L Normal 3.5-5.1 [facility] Comment on above: Performed By: #### L IPID, CMP #### [facility] [address] [place] [address] Dr. Monique Sewell Protein [Mass/Vol] 6.5 g/dL Normal 6.4-8.2 [facility] Comment on above: Performed By: #### L IPID, CMP #### [facility] [address] [place] [address] Dr. Monique Sewell Sodium [Moles/Vol] 140 mmol/L Normal 136-145 [facility] Comment on above: Performed By: #### L IPID, CMP #### [facility] [address] [place] [address] Dr. Monique Sewell Urea nitrogen [Mass/Vol] 12.0 mg/dL Normal 7.0-18.0 [facility] Comment on above: Performed By: #### L IPID, CMP #### [facility] [address] [place] [address] Dr. Monique Sewell Urea nitrogen/Creatinine [Mass ratio] 13.0 mg/mg Normal [facility] Comment on above: Performed By: #### L IPID, CMP #### [facility] [address] [place] [address] Dr. Monique Sewell GLYCOHEMOGLOBIN A1Con 2021 ADA RECOMMENDATION SEE BELOW Normal [facility] Comment on above: Result Comment: ADA RECOMMENDED LIMIT 4.0 - 6.0 ADA THERAPEUTIC TARGET < 7.0 ACTION SUGGESTED > 7.0 Performed By: #### D ATA1C #### [facility] [address] [place] [address] Dr. Monique Sewell Glucose [Mass/Vol] 157 mg/dL Normal [facility] Comment on above: Performed By: #### D ATA1C #### [facility] [address] [place] [address] Dr. Monique Sewell HbA1c (Bld) [Mass fraction] 7.1 % Critically high 4.5-6.2 [facility] Comment on above: Performed By: #### D ATA1C #### [facility] [address] [address] [address] Monique Sewell US Venous, Unilat, Lower [...] by Thom Mendez on 07/11/2021 1239 Normal [facility] Specialist Vital Signs Date Time Vital Sign Value Performing Clinician Facility 06-08-2024 14:130500 Body height 175.26 cm Misty Rod MD Work Phone: [facility] 06-08-2024 14:13-0500 Body mass index (BMI) [Ratio] 37.9 kg/m2 Misty Rod MD Work Phone: [facility] 06-08-2024 14:13-0500 Body weight 116.57 kg Misty Rod MD Work Phone: [facility] 06-08-2024 14:13-0500 Diastolic blood pressure 76 mm[Hg] Misty Rod MD Work Phone: [facility] 06-08-2024 14:13-0500 Heart rate 72 /min Misty Rod MD Work Phone: [facility] 06-08-2024 14:13-0500 Systolic blood pressure 156 mm[Hg] Misty Rod MD Work Phone: [facility] 05-08-2024 11:16-0500 Body height 175.26 cm [facility] 05-08-2024 11:16-0500 Body mass index (BMI) [Ratio] 38.2 kg/m2 [facility] 05-08-2024 11:16-0500 Body weight 117.48 kg [facility] 05-08-2024 11:16-0500 Diastolic blood pressure 79 mm[Hg] [facility] 05-08-2024 11:16-0500 Heart rate 63 /min [facility] 05-08-2024 11:16-0500 Systolic blood pressure 157 mm[Hg] [facility] 04-25-2024 09:10-0500 Body height 177.8 cm Lisbeth Solitario MD Work Phone: [facility] 04-25-2024 09:10-0500 Body mass index (BMI) [Ratio] 36.88 kg/m2 Lisbeth Solitario MD Work Phone: [facility] 04-25-2024 09:10-0500 Body weight 116.57 kg Lisbeth Solitario MD Work Phone: [facility] 04-25-2024 09:10-0500 Diastolic blood pressure 60 mm[Hg] Lisbeth Solitario MD Work Phone: [facility] 04-25-2024 09:10-0500 Systolic blood pressure 115 mm[Hg] Lisbeth Solitario MD Work Phone: [facility] 01-21-2024 09:44-0400 Blood Pressure Location Ed GARCIA [facility] 01-21-2024 09:44-0400 Diastolic blood pressure 78 mm[Hg] Ed GARCIA [facility] 01-21-2024 09:44-0400 Heart rate 80 /min Ed GARCIA [facility] 01-21-2024 09:44-0400 Respiratory rate 16 /min Ed GARCIA [facility] 01-21-2024 09:44-0400 Systolic blood pressure 132 mm[Hg] Ed GARCIA [facility] 11-23-2023 13:16-0400 Body height 175.26 cm [facility] 11-23-2023 13:16-0400 Body mass index (BMI) [Ratio] 83.7 kg/m2 [facility] 11-23-2023 13:16-0400 Body weight 257 kg [facility] 11-23-2023 13:16-0400 Diastolic blood pressure 65 mm[Hg] [facility] 11-23-2023 13:16-0400 Heart rate 79 /min [facility] 11-23-2023 13:16-0400 Systolic blood pressure 129 mm[Hg] [facility] 11-02-2023 10:02-0400 Body height 175.26 cm [facility] 11-02-2023 10:02-0400 Body mass index (BMI) [Ratio] 38.1 kg/m2 [facility] 11-02-2023 10:02-0400 Body temperature 97.3 [degF] [facility] 11-02-2023 10:02-0400 Body weight 117.19 kg [facility] 11-02-2023 10:02-0400 Diastolic blood pressure 73 mm[Hg] [facility] 11-02-2023 10:02-0400 Heart rate 69 /min [facility] 11-02-2023 10:02-0400 Respiratory rate 18 /min [facility] 11-02-2023 10:02-0400 SaO2% (BldA) [Mass fraction] 97 % [facility] 11-02-2023 10:02-0400 Systolic blood pressure 142 mm[Hg] [facility] 04-28-2023 11:30-0500 Body height 175.26 cm Misty Rod Other [facility] 04-28-2023 11:30-0500 Body mass index (BMI) [Ratio] 37.51 kg/m2 Misty Rod Other [facility] Other 04-28-2023 11:30-0500 Body weight 115.21 kg Misty Rod Other [facility] Other 04-28-2023 11:30-0500 Diastolic blood pressure 67 mm[Hg] Misty Rod Other [facility] Other 04-28-2023 11:30-0500 Systolic blood pressure 164 mm[Hg] Misty Rod Other [facility] Other Encounters Encounter Date Encounter Type Care Provider Facility Start: 07-24-2024 ambulatory Ed Pruitt ty:[facility] Start: 06-22-2024 End: 06-22-2024 Patient encounter procedure Misty Rod MD Work Phone: [facility] Work Phone: Start: 06-22-2024 End: 06-22-2024 ambulatory Misty Rod MD Work Phone: [facility] Work Phone: Start: 06-22-2024 Encounter for preprocedural laboratory examination David Real [facility] Start: 06-08-2024 End: 06-08-2024 Patient encounter procedure Misty Rod MD Work Phone: [facility] Work Phone: Start: 05-12-2024 End: 05-12-2024 Patient encounter procedure Misty Rod MD Work Phone: [facility] [place] Work Phone: Start: 05-12-2024 End: 05-12-2024 ambulatory David Real Facility:[facility] Start: 05-12-2024 Non-patient / Non-visit Misty Rod MD Work Phone: [facility] Work Phone: Start: 05-11-2024 End: 05-11-2024 Patient encounter procedure Misty Rod MD Work Phone: [facility] Work Phone: Start: 05-11-2024 End: 05-11-2024 ambulatory Misty Rod MD Work Phone: [facility] Work Phone: Start: 05-08-2024 End: 05-08-2024 ambulatory [facility] Work Phone: Start: 05-08-2024 End: 05-08-[address] [facility] Work Phone: Start: 04-25-2024 End: 04-25-2024 Bamboo flowsheet Lisbeth Solitario MD Work Phone: [facility] Start: 04-25-2024 End: 04-25-2024 Bamlindsay flowscedrick Solitario MD Work Phone: [facility] Start: 04-25-2024 End: 04-25-2024 Patient encounter procedure Lisbeth Solitario MD Work Phone: [facility] Comment on above: Encounter for mastoi dectomy cavity debridement, right (Primary Dx) Start: 04-25-2024 End: 04-25-2024 ambulatory LISBETH SOLITARIO Not Available Start: 01-21-2024 End: 01-21-2024 ambulatory MISTY ROD Facility:[facility] [place] Start: 01-21-2024 End: 01-21-2024 Patient encounter procedure Ed GARCIA [facility] Start: 11-24-2023 ambulatory Ed GARCIA Facility : [place] Start: 11-23-2023 End: 11-23-2023 ambulatory [facility] Work Phone: Start: 11-23-2023 End: 11-23-[address] [facility] Work Phone: Start: 11-02-2023 End: 11-02-[address] [facility] [place] Work Phone: Start: 11-01-2023 Non-patient / Non-visit [facility] Work Phone: Start: 09-15-2023 End: 09-15-2023 ambulatory PEDRO FRANCO Not Available Start: 09-06-2023 Non-patient / Non-visit [facility] Work Phone: Start: 09-02-2023 End: 09-02-2023 ambulatory PRISCILLA HEALY Not Available Start: 08-30-2023 End: 08-30-2023 ambulatory PRISCILLA HEALY Not Available Start: 07-12-2023 End: 07-12-2023 ambulatory Misty Rod Other [facility] Other Start: 07-12-2023 Telephone encounter Misty Rod [facility] Start: 07-07-2023 End: 07-07-2023 ambulatory Misty Rod Other [facility] Other Start: 07-07-2023 Telephone encounter Misty Rod [facility] Start: 06-29-2023 End: 06-29-2023 ambulatory Misty Rod Other [facility] Other Start: 06-29-2023 Telephone encounter Misty Rod [facility] Start: 05-19-2023 End: 05-19-2023 ambulatory Misty Rod Other [facility] Other Start: 05-19-2023 Telephone encounter Misty Rod [facility] Start: 04-28-2023 End: 04-28-2023 ambulatory Misty Rod Other [facility] Other Start: 04-28-2023 Office outpatient vi sit 25 minutes Misty Rod [facility] Start: 10-06-2022 End: 10-07-2022 ambulatory NONE LISTED REQUEST Facility:[facility] Start: 08-10-2022 End: 08-11-[address] MISTY ROD Facility:[facility] Start: 04-02-2022 End: 04-03-[address] MISTY ROD Facility:[facility] Start: 10-13-2021 End: 10-14-2021 ambulatory NONE LISTED REQUEST Facility: Procedures Date Procedure Procedure Detail Performing Clinician Start: 05-12-2024 CT of left shoulder Violet Rdo MD Work Phone: Start: 05-11-2024 Plain X-ray of bilat eral shoulders Misty Rod MD Work Phone: Arthroscopy of knee Ed GARCIA Discectomy of spine Ed GARCIA Mastoidectomy Ed GARCIA Repair of joint of r ight hip Ed GARCIA Tonsillectomy Ed GARCIA Vasectomy Ed GARCIA Plan of Treatment Date Care Activity Detail Author Start: 05-11-2024 Plain X-ray of bilat eral shoulders XR shoulder BI min 2V [facility] Start: 05-11-2024 XR Shoulder - bilate ral Views [facility] Start: 04-25-2024 End: 04-25-2024 Patient encounter procedure 04/25/2024 9:10 AM EST Office Visit [facility] [address] [facility] [address] [place] [address] Lisbeth Solitario MD [address] [facility] [address] [place] [address] Arrived [facility] Comment on above: Arrived Start: 02-20-2024 Influenza vaccination Influenza Vacc ine (#1) [facility] Start: 11-23-2023 Patient referral [facility] Work Phone: Start: 02-18-2018 Pneumococcal Vaccine : 65+ Years (2 of 2 - PPSV23 or PCV20) Pneumococcal Vaccine: 65+ Years (2 of 2 - PPSV23 or PCV20) [facility] Comprehensive metabo lic 2000 panel - Serum or Plasma [facility] CT Shoulder - left W O contrast [facility] Microalbumin [Mass/volume] in Urine [facility] Patient referral [facility] Work Phone: [facility] Immunizations Immunization Date Immunization Notes Care Provider Fa cility 11-02-2023 tetanus and diphtheria toxoids, adsorbed, preservative free, for adult use (5 Lf of tetanus toxoid and 2 Lf of diphtheria toxoid) [facility] 05-27-2022 influenza virus vaccine, split virus (incl. purified surface antigen) Misty Rod Other [facility] Other 05-27-2022 influenza virus vaccine, unspecified formulation [facility] 06-03-2021 COVID-19 mRNA-1273 (Moderna) [facility] 04-05-2021 zoster vaccine recombinant Lisbeth Solitario MD Work Phone: [facility] 04-05-2021 zoster vaccine, live Misty Rod Other [facility] 01-03-2021 zoster vaccine recombinant Lisbeth Solitario MD Work Phone: [facility] 01-03-2021 zoster vaccine, live Misty Rod Other [facility] 08-08-2020 COVID-19 mRNA-1273 (Moderna) [facility] 03-31-2017 influenza virus vaccine, split virus (incl. purified surface antigen) Misty Rod Other [facility] Other 03-31-2017 influenza virus vaccine, unspecified formulation [facility] 02-18-2017 pneumococcal conjugate vaccine, 13 valent Misty Rod Other [facility] NEGATED: Highlighted row has not occurred! 7 pneumococcal polysaccharide vaccine, 23 valent Patient Objection Misty Rod Other [facility] Other Payers Date Payer Category Payer Self-pay [id number] 2023 Medicare [id number] 2017 Managed Care HMO (unspecified) [employer] [id number] 2011 Medicare MEDICARE [id number] 1959 Medicare [id number] 1959 Self-pay [id number] 1959 Unknown [id number] 1959 Unknown [id number] 1946 Unknown [id number] 2.16.840.1.182894.3.579. 2.593 1946 Unknown [id number] 2.16.840.1.027245.3.579. 2.593 1946 Unknown [id number] 2.16.840.1.969089.3.579. 2.727 1946 Unknown [id number] 2.16.840.1.032815.3.579. 2.727 1946 Unknown [id number] 2.16.840.1.879624.3.579. 2.1259 1946 Unknown [id number] 2.16.840.1.857325.3.579. 2.1259 1946 Unknown [id number] 2.16.840.1.197143.3.579. 2.1259 1946 Unknown [id number] 2.16.840.1.740704.3.579. 2.1259 1946 Unknown [id number] 2.16.840.1.994230.3.579. 2.1259 1946 Unknown [id number] 2.16.840.1.806903.3.579. 2.1259 Unknown [id number] 2.16.840.1.242592.3.579. 2.593 Unknown [id number] 2.16.840.1.538617.3.579. 2.593 Unknown [id number] 2.16.840.1.916917.3.579. 2.531 Unknown [id number] 2.16.840.1.876718.3.579. 2.531 Unknown [id number] 2.16.840.1.127349.3.579. 2.531 Social History Date Type Detail Facility Start: 08-30-2023 End: 04-25-2024 Sex Assigned At [facility] Start: 07-04-2021 End: 06-22-2024 Tobacco smoking status SDIS Ex-smoker (finding) [facility] Start: 1945 Sex Assigned At Male F [facility] Tobacco smoking status Never [facility] End: 06-21-1980 History of tobacco use Current smoker [facility] End: 06-21-1980 History of tobacco use Cigarette Smoker [facility] Start: 04-21-2023 Tobacco use and exposure Smokeless tobacco non-user [facility] Start: 08-30-2023 End: 04-25-2024 Alcoholic beverage intake Current drinker of alcohol (finding) [facility] Start: 08-30-2023 End: 04-25-2024 History of Social function [facility] Start: 04-21-2023 Alcohol Comment caffeine intak e: 3-4 cups per day [facility] Start: 1945 Sex assigned at Not on file [facility] Start: 05-08-2024 End: 06-23-2024 Sex Male (finding) [facility] Medical Equipment Procedure Code Equipment Code Equipment Origin al Text Equipment Identifier Dates Arthroplasty, knee, total, minimally invasive Orthopaedic cement, non-medicated [id number] FDA Start: 07-04-2021 Arthroplasty, knee, total, minimally invasive Uncoated knee femur prosthesis ()[id number] FDA Start: 07-04-2021 Arthroplasty, knee, total, minimally invasive Tibial insert ()[id number] FDA Start: 07-04-2021 Arthroplasty, knee, total, minimally invasive Uncoated knee tibia prosthesis, metallic ()[id number] FDA Start: 07-04-2021 Arthroplasty, knee, total, minimally invasive Polyethylene patella prosthesis ()[id number] FDA Start: 07-04-2021 Arthroplasty, hip, total, anterior [...] total, anterior approach STEM B/5 06/03 [facility] FDA Start: 01-28-2018 Arthroplasty, [...] 01-28-2018 Arthroplasty, hip, total, anterior approach STEM /06/03 [facility] FDA Start: 01-28-2018 Arthroplasty, hip, [...] total, anterior approach STEM B/5 06/03 [facility] FDA Start: 01-28-2018 Arthroplasty, [...] 01-21-2024 Functional Status N/A [facility] Clinical Notes 04-28-2023 to 05-08-2024 Note Date & Type Note Facility 05-08-2024 Evaluation note Diagnosis Onset Date Resolution Controlled diabetes mellitus with hyperglycemia acute May 08, 2024 10:58am Hypercholesteremia acute Novemb er 2023 10:58am Hypertension acute April 10:58am Mass of joint of right shoulder acute May 11, 2024 8:51am 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 acute Novembe r 2023 8:51am Primary osteoarthritis, left shoulder deleted May 11, 2024 8:51am [facility] Work Phone: 1(759) 762-600411-18-2024 Evaluation note* Diagnosis Onset Date Resolution Status Admit Date Controlled diabetes mellitus with hyperglycemia acute April 10:58am Hypercholesteremia acute Novemb er 2023 10:58am Hypertension acute April 10:58am Mass of joint of right shoulder acut e May 08, 2024 10:58am 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 Barnes MASTOID SURGERY Right 1970 SHOULDER SURGERY Right 2010 arthroscopy, Dr. Barnes [...] debridement, right Mastoid debrided documented [id number] Hospital Discharge instructions Patient Education 01/21/2024 10:26:26 [...] treatment? Where to find more information [employer] [place] [employer]: www.cancer.org [employer] [employer]: www.auanet.org Contact a health care [...] provider. Document Revised: 12/01/2021 Document Reviewed: 12/01/2021 [employer] Patient Education 2022 Chinese Online. Follow Up Care 11/29/2023 09:11:03 With:ZULY RIVERA, [place], URL Address: [address] [place], [place] [id number]- When: Unknown [facility] 08-02-2024 NoteUrology Office/Clinic Note Chief Complaint Referral [...] a medication. Follow-up With When Contact Information ZUYL RIVERA, [place], URL [address] [place] [address]- Additional Instructions: 6 mos w/ PSA Patient Education Prostate Cancer Screening I, Lamar Rosa, personally scribed for Dr. Garcia on 01/21/2024 10:33:51. Electronically signedby alex Rosa [...] than 30 days ago (more content not included)...[facility] Comment: Electronically Signed By: Ed GARCIA MD\.br\Date and Time Signed: 01/21/24 10:35 EDT\.br\Electronically Co-Signed By: Lamar Rosa.br\Date and Time Co- Signed: 01/20/2410:34 [id number] NotePatient Education Oncology Prostate Cancer Screening Prostate [...] Where to find more information ? The [place] [employer]: www.cancer.org ? [employer] [employer]: www.auanet.org Contact a health care [...] front of the rectum. (more content not included)...[facility] Evaluation note* Encounter Date Diagnosis Assessment Notes Treatment Notes Treatment Clinical Notes Jun, BPH (benign prostatic hyperplasia) (ICD-10 - N40.0) [facility] Other [id number] Evaluation note* Encounter Date Diagnosis Assessment Notes [...] PSA (prostate specific antigen) (ICD-10 - Z12.5) [facility] Other Chief complaint+Reason for visit Narrative* Chief Complaint Amb Documentation Left ring finger laceration med questions, urology referral Reason for Visit Laceration of left r ing finger w/o foreign body w/o damage to nail PSA elevation [facility] Work Phone: Evaluation + Plan note Future Appointments Appointment Date:07/24/2024 10:15:00 AM Scheduled Provider:Ed GARCIA MD Location:[facility] Appointment Type:URO Office Visit Diagnostic Tests Pending * PSA Total 06/21/24 [facility] evaluation noteNo InformationNortHoly [facility] [email or web address] Other Evaluation note* Diagnosis Onset Date Resolution Status Laceration of left ring fing er w/o foreign body w/o damage to nail acute PSA elevation acute [facility] Work Phone: Evaluation note* Diagnosis Encounter for mastoidectomy cavity debridement, right- Primary [facility] Diagnosis Onset Date Resolution Status Admit Date Controlled diabetes mellitus with hyperglycemia acute May 08, 2 024 10:58am Hypercholesteremia acute Novemb er 2023 10:58am Hypertension acute April 10:58am [facility] Work Phone: History general Narrative - Reported* Type Description Date Medical History DM Medical History HTN Medical History Hypercholesteremia Medical History Rupture discs Medical History Spinal stenosis Surgical History Ear surgury 1996 Surgical History RT mastoidectomy 1969 Surgical History (R) KNEE SCOPE - DR MARTE 1995 Surgical History Tonsillectomy 1973 Surgical History (L) KNEE SCOPE - DR BARNES 19 99 Surgical History Knee scopes x2 1998 Surgical History (R) SHOULDER SCOPE - DR TRAORE C 2010 Surgical History Rt shoulder surgery 2007 Surgical History DISCECTOMY ; LAMINEC NATE ; LAMINOTOMY ; DECOMPRESSION - DR ROD 06/12/16 Surgical History total RT hip 2017 Surgical History LT knee replaced 2016 Surgical History reapir vitreous detachment, OS Hospitalization History See Above [facility] Other Hospital course Narrative No data available for this section [facility] Hospital Discharge instructionsAmbulatory Orders* Referral to Urology Time Frame: 11/23/23, Location: None Selected [facility] Work Phone: Progress note No data available for this section [facility] Summary Purpose Family History No Family History Records Found Relationship Condition Age at Onset Recorded Date/T waletr father Myocardial infarction Unknown Heart disease Unknown [...] Age at Onset Recorded Date/T walter father Type 2 diabetes mellitus Unknown Heart disease Unknown Myocardial infarction Unknown Unknown mother Type 2 diabetes mellitus Unknown Malignant neoplasm of breast Unknown Hypertension Unknown brother Type 2 diabetes mellitus Unknown Advance Directives No Advanced Directives Records Found Advance Directive Response Recorded Date/ Time Advance [...] 2024 8:51am Primary osteoarthritis, left shoulder No [facility]2023 8:51am Chief Complaint Admit Date go over medication, issue with shoulder May 08, 2024 10:58am M25.512 - Pain in left shoulder May 11, 2024 8:20am CONSULT DR MISTY ROD LEFT SHOULDER PA IN NX May 11, 2024 8:51am M19.212 May 12, 2024 11:47am Stomach Pain June 08, 2024 2:03pm Shoulder pain June 22, 2024 9: 30am Reason for Visit Admit Date Controlled diabetes mellitus with hyperg lycemia May 08, 2024 10:58am Hypercholesteremia May 08, 2024 10:58am Hypertension May 08, 2024 10:58am Mass of joint of right shoulder May 08, 2024 10:58am 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 May 08, 2024 10:58am Mass of joint of right shoulder May 11, 2024 8:51am 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 May 11, 2024 8:51am Primary osteoarthritis, left shoulder No vember 2023 8:51am Right upper quadrant abdominal pain Dece mber 2023 2:03pm Additional Source Comments (unrecognized sect ion and content) No Status Records FoundNo Status Records FoundNo Status Records FoundNo Status Records FoundNo Status Records Found INFORMATION SOURCE (unrecogn ized section and content) DATE CREATED AUTHOR 07/12/2021 [facility] dical Specialist DATE CREATED AUTHOR AUTHOR'S ORGANIZ ATION 10/06/2022 [facility] DATE CREATED AUTHOR AUTHOR'S ORGANIZ ATION 01/23/2024 [facility] DATE CREATED AUTHOR AUTHOR'S ORGANIZ ATION 04/26/2024 [facility] dical Specialists EPIC DATE CREATED AUTHOR AUTHOR'S ORGANIZ ATION 07/14/2024 [facility] REASON FOR VISIT (unrecogniz ed section and [...] November 23, 2023 End: November 23, 2023 [employer] Consultant Relationship Specialty Start Date End Date Misty Rod MD [address] [place] [address] PCP - General Family Medicine 04/21/23 [employer] Consultant Relationship Specialty Start Date End Date Misty Rod MD [address] [facility] [place] [address] PCP - General Family Medicine 04/21/23 Team Status: Active Member Role Status Dates Misty Rod MD Primary Care Provider Active Start: May 11, 2024 David Real DO Attending Provider Active St art: May 11, 2024 Team Status: Inactive Member Role Status Dates Misty Rod MD Primary Care Provider Active Start: May 11, 2024 End: May 11, 2024 David Real DO Attending Provider Active St art: May 11, 2024 End: May 11, 2024 Team Status: Active Member Role Status Dates Misty Rod MD Primary Care Provide r, Attending Provider Active Start: May 12, 2024 Team Status: Inactive Member Role Status Dates Misty Rod MD Primary Care Provider Active Start: May 12, 2024 End: May 12, 2024 David Real DO Attending Provider Active St art: May 12, 2024 End: May 12, 2024 Team Status: Inactive Member Role Status Dates Misty Rod MD Primary Care Provide r, Attending Provider Active Start: June 08, 2024 End: June 08, 2024 Team Status: Inactive Member Role Status Dates Misty Rod MD Primary Care Provider Active Start: June 22, 2024 End: June 22, 2024 David Real DO Attending Provider Active St art: June 22, 2024 End: June 22, 2024 Goals (unrecognized section and content) Goals [...] BE BASED ON THE PRIMARY CLINICAL RECORDS. [facility] provides no warranty or guarantee of the accuracy or completeness of information in this document.
[2024-07-14 11:03] LABS: Basophils Percent Auto 0.9 % (0.2-2.0); Eosinophils Absolute Auto 0.2 10^3/uL (0.0-0.7); Eosinophils Percent Auto 4.1 % (0.9-7.0); Hematocrit 39.7 % (42.0-54.0); Hemoglobin 12.9 g/dL (14.0-18.0); Immature Granulocytes Abs Auto 0.02 10^3/uL (0.00-0.03); Immature Granulocytes Pct Auto 0.4 % (0.0-0.5); Lymphocytes Percent Auto 20.9 % (20.5-60.0); Mean Corpuscular HGB Conc 32.5 g/dL (29.9-35.2); Mean Corpuscular Hemoglobin 32.7 pg (25.9-34.0); Mean Corpuscular Volume 100.8 fL (80.0-94.0); Mean Platelet Volume 11.1 fL (9.5-13.5); Monocytes Absolute Auto 0.5 10^3/uL (0.3-0.8); Monocytes Percent Auto 10.4 % (1.7-12.0); Neutrophils Percent Auto 63.3 % (43.0-75.0); Platelet Count 183 10^3/uL (150-450); Red Blood Count 3.94 10^6/uL (4.70-6.10); Red Cell Distribution Width 12.5 % (11.0-15.0); White Blood Count 4.7 10^3/uL (4.0-11.0)
[2024-07-14 11:14] LABS: D Dimer 0.32 mg/L FEU (<=0.59)
[2024-07-14 11:36] LABS: Alanine Aminotransferase 24 U/L (16-63); Albumin Globulin Ratio 1.4; Albumin Level 3.8 g/dL (3.4-5.0); Alkaline Phosphatase 115 U/L (46-116); Anion Gap 12.2; Aspartate Amino Transferase 11 U/L (15-37); BUN Creatinine Ratio 15.4; Bilirubin Total 0.3 mg/dL (0.2-1.0); Calcium 9.2 mg/dL (8.5-10.1); Carbon Dioxide 28.5 mmol/L (21.0-32.0); Chloride 104 mmol/L (98-107); Estimated GFR (African America >60 (>=60 mL/min/1.73m^2); Estimated GFR (Non-African Ame 51 (>=60 mL/min/1.73m^2); Globulin 2.7 g/dL; Glucose 213 mg/dL (74-106); Potassium 4.7 mmol/L (3.5-5.1); Sodium 140 mmol/L (136-145); Total Protein 6.5 g/dL (6.4-8.2)
== END 2024-07-14 10:43 | disposition home or self-care (01) ==
PROVIDERS: PCP Family Medicine; Visit Provider Family Medicine
DX: E11.65 Type 2 diabetes mellitus with hyperglycemia (principal); Z79.4 Long term (current) use of insulin
CPT/HCPCS: 36415; 80053; 85025; 85378

== ENCOUNTER 2024-09-18 06:50 | Outpatient (OUT) | payer MEDICARE, OTHER, SELFPAY ==
--- OUTSIDE RECORDS SUMMARY | 2024-09-18 06:55 | XMS_ITS | CCD ---
Author Organization [facility] Care Team Providers Care Campground Manager Name Role Phone REQUEST, NONE LISTED Admitting Unavaila ble REQUEST, NONE LISTED Attending Unavaila abrahan ROD, DR KWAME Betts Primary Care Unavailable REQUEST, DR MELGAR LISTED Consulting Unavaila abrahan ROD, DR KWAME Betts Admitting Unavailable ROD, DR KWAME Betts Attending Unavailable MARCEL, DR KWAME Betts Primary Care Unavailable ROD, DR KWAME Betts Consulting Unavailable ROD, DR KWAME Betts Admitting Unavailable ROD, DR KWAME Betts Attending Unavailable ROD, DR KWAME Betts Primary Care Unavailable ROD, DR KWAME Betts Consulting Unavailable REQUEST, NONE LISTED Admitting Unavaila ble REQUEST, DR MELGAR LISTED Attending Unavaila ble MARCEL, DR KWAME Betts Primary Care Unavailable Kwame Rod Unavailable KWAME ROD Primary Care Physician [phone] Kwame Rod MD Primary Care Provider Kwame Rod MD Primary Care Provider [phone] David Real DO Attending Provider Ed GARCIA Attending Unavailable Ed GARCIA Attending Unavailable KWAME ROD Referring Unavailable Ed GARCIA Attending Unavailable Kwame Rod MD Primary Care Provider David Real DO Attending Provider David Real Admitting Unavailable Kwame Rod Primary Care Unavailable David Real Attending Unavailable David Real Admitting Unavailable Kwame Rod Primary Care Unavailable David Real Attending Unavailable Kwame Rod Primary Care Unavailable David Real Attending Unavailable David Real Admitting Unavailable Kwame Rod Primary Care Unavailable David Real Admitting Unavailable David Real Attending Unavailable Kwame Rod Primary Care Unavailable David Real Attending Unavailable David Real Admitting Unavailable Kwame Rod Primary Care Unavailable David Real Attending Unavailable David Real Admitting Unavailable SAMMIE SCOTT Attending Unavailable JAYANT, DAVID Referring Unavailable TATYOLI BARROS Attending Unavailable JAYANT, DAVID Referring Unavailable TATTERSYOLI BONILLA Attending Unavailable JAYANT, DAVID Referring Unavailable SAMMIE SCOTT Attending Unavailable JAYANT, DAVID Referring Unavailable DARCY WEINBERG Attending Unavailable JAYANT, DAVID Referring Unavailable WEINBERGDARCY Attending Unavailable JAYANT, DAVID Referring Unavailable TALONTERSYOLI BONILLA Attending Unavailable JAYANT, DAVID Referring Unavailable DARCY WEINBERG Attending Unavailable JAYANT, DAVID Referring Unavailable TALONTERSCHAD, YOLI Attending Unavailable JAYANT, DAVID Referring Unavailable LADONNA SOLITARIO Attending Unavailable Allergies Allergy Classification Reported Allergen(s) Allergy Type Date of Onset Reaction(s) Facility (20 sources) atorvastatin; Translations: [atorvastatin] Drug Allergy 8 Muscle pain (finding) [facility] Comment on above: Onset Date: 05/30/20 18 (17 sources) atorvastatin Drug Allergy 4 Other [facility] Healthcare (1 source) atorvastatin Drug Allergy 5 [facility] Repository Medications Current Medications Medication Drug Class(es) Dates Sig (Normalized) Sig (Original) acetaminophen 500 mg oral tablet (15 sources) Start: 07-18-2024 take 1 tablet by mouth every six hours as needed for pain Acetaminophen 500 mg tablet Active 500 MG PO Q6H as needed for Pain July 18, 2024 1:00am DO NOT RECONCILE UNTIL DOS 07/19/24 TO BE USED POST OP Start: 01-29-2018 End: 06-18-2021 take 1 tablet by mouth every six hours Acetaminophen (Mapap Extra Strength) 500 mg Tablet Discontinued 500 MG PO Q6H 0 January 29, 2018 12:00am June 18, 2021 12:29pm aspirin 81 mg chewable tablet (20 sources) Platelet Aggregation Inhibitor, Nonsteroidal Anti-inflammatory Drug Start: 06-22-2024 take 1 tablet by mouth two times weekly as needed for pain Aspirin (Aspirin Childrens) 81 mg tablet,chewable Active 81 MG PO Twice a Week as needed for fever or pain June 22, 2024 1:00am Start: 01-29-2018 End: 04-25-2024 take 1 tablet by mouth twice daily Aspirin 81 mg Tablet,Delayed Release (Dr/Ec) Discontinued 81 MG PO Twice daily January 29, 2018 12:00am June 18, 2021 12:29pm Blood-Glucose Meter (Accu-Ch ek Guide Glucose Meter) misc (10 sources) Start: 09-06-2023 Blood-Glucose Meter (Accu-Chek Guide Glucose Meter) misc Active 0 .Route 1 September 05, 2023 11:00pm As directed Start: 09-06-2023 Blood-Glucose Meter (Accu-Chek Guide Glucose Meter) misc Active 0 .Route 1 September 06, 2023 12:00am As directed cholecalciferol 0.025 mg oral capsule (10 sources) Vitamin D Start: 01-14-2018 take 1 capsule by mouth three times weekly Cholecalciferol (Vitamin D3) (Vitamin D3) 1,000 unit Capsule Active 1000 UNIT PO 3 Times a week January 14, 2018 12:00am Start: 01-14-2018 take 1 capsule by mo [facility] once daily Cholecalciferol (Vitamin D3) (Vitamin D3) 1,000 unit Capsule Active 1000 UNIT PO Daily January 13, 2018 11:00pm dapagliflozin 10 mg oral tablet (20 sources) Sodium-Glucose Cotransporter 2 Inhibitor Start: 06-22-2024 take 1 tablet by mouth once daily in the morning Dapagliflozin Propanediol (Farxiga) 10 mg tablet Active 10 MG PO Every morning June 22, 2024 1:00am Start: 01-14-2018 End: 05-08-2024 take 1 tablet by mouth once daily in the morning Dapagliflozin Propanediol (Farxiga) 10 mg tablet Discontinued 10 MG PO Every morning November 23, 2023 1:50pm May 08, 2024 12:51pm take 5 mg by mouth once daily da pagliflozin (Farxiga) 5 MG Take 5 mg by mouth 1 (one) time each day at the same time. Active docusate sodium 100 mg oral capsule (5 sources) Start: 07-18-2024 take 1 capsule by mouth twice daily as needed for constipation Docusate Sodium (Colace) 100 mg capsule Active 100 MG PO Twice daily as needed for Constipation 09 04July 18, 2024 1:00am DO NOT RECONCILE UNTIL DOS 07/19/24 TO BE USED POST OP doxycycline hyclate 100 mg oral capsule (5 sources) Tetracycline-class Drug Start: 07-18-2024 take 1 capsule by mouth twice daily Doxycycline Hyclate 100 mg capsule Active 100 MG PO Twice daily 14 July 18, 2024 1:00am DO NOT RECONCILE UNTIL DOS 07/19/24 TO BE USED POST OP FreeStyle Lite Test (7 sources) Start: 11-07-2021 FreeStyle Lite Test FreeStyle Lite Test , 1 (one) Each daily - E11.65 # 100, 11/07/2021, Ref. x3. Active In Vitro daily - E11.65 for 0 E11.65 *Pick strength-form from [employer] for eRX* October, Active FreeStyle Lite Test - (7 sources) FreeStyle Lite Test - USE DIRECTED ONCE DAILY for 90 Active FreeStyle System (7 sources) Start: 07-12-2020 FreeStyle System FreeStyle System , 1 (one) Kit test once daily # 1, 07/12/2020, No Refill. Active test once daily for 0 meter Jun, Active glyBURIDE 5 mg oral tablet (20 sources) Sulfonylurea Start: 06-22-2024 take 2 tablets by mouth twice daily Glyburide 5 mg tablet Active 10 MG PO Twice daily June 22, 2024 1:00am TAKE 2 TABLETS TWICE A DAY Start: 01-17-2024 GlyBURIDE (Eqv -DiaBeta) 5 mg oral tablet 360 tab(s), 0 Refill(s), Refills(s) 0 Start Date: 01/17/24 Status: Ordered Start: 10-28-2023 End: 06-22-2024 Glyburide 5 mg tablet Discon tinued 0 .ROUTE .COMPLEX 360 February 22, 2024 1:09pm June 22, 2024 11:17am TAKE 2 TABLETS TWICE A DAY Start: 12-29-2021 take 1 tablet by melodie th twice daily glyBURIDE 5MG glyBURIDE 5MG, 2 (two) Tablet two times daily # 0, 12/29/2021, No Refill. Active Oral two times daily for 0 *Pick strength-form from [employer] for eRX* Dec, Active Start: 01-14-2018 End: 10-28-2023 take 2 tablets by mouth twice daily Glyburide 5 mg Tablet Discontinued 10 MG PO Twice daily January 14, 2018 12:00am October 28, 2023 8:42am Start: 01-14-2018 End: 10-28-2023 take 10 mg by mouth twice daily Glyburide Discontinued 10 MG PO Twice daily January 14, 2018 12:00am October 28, 2023 8:42am hydrALAZINE hydrochloride 50 mg oral tablet (20 sources) Arteriolar Vasodilator Start: 02-09-2024 Hydralazine 50 mg tablet Active 0 .ROUTE .COMPLEX 180 February 09, 2024 8:27am TAKE 1 TABLET TWICE A DAY Start: 01-14-2018 End: 02-09-2024 take 1 tablet by mouth twice daily Hydralazine 50 mg Tablet Discontinued 50 MG PO Twice daily January 14, 2018 12:00am February 09, 2024 8:27am take 1 tablet by melodie th every twelve hours hydrALAZINE (Apresoline) 50 MG tablet Take 50 mg by mouth every 12 (twelve) hours. Active labetalol hydrochloride 200 mg oral tablet (20 sources) beta-Adrenergic Yanely Start: 06-22-2024 take 2 tablets by mouth twice daily Labetalol 200 mg tablet Active 400 MG PO Twice daily June 22, 2024 1:00am TAKE 2 TABLETS TWICE A DAY Start: 05-15-2024 End: 06-22-2024 Labetalol 200 mg tablet Disc ontinued 0 .ROUTE .COMPLEX 360 May 15, 2024 5:55pm June 22, 2024 11:17am TAKE 2 TABLETS TWICE A DAY Start: [...] Discontinued 400 MG PO Twice daily January 14, 2018 12:00am May 15, 2024 5:55pm Start: 01-14-2018 take 400 mg by mouth twice daily Labetalol Active 400 MG PO Twice daily January 14, 2018 12:00am take 1 tablet by melodie th every twelve hours labetalol (Normodyne) 200 MG tablet Take 200 mg by mouth every 12 (twelve) hours. Active lisinopril 40 mg oral tablet (20 sources) Angiotensin Converting Enzyme Inhibitor Start: 11-23-2023 lisinopril 40 MG tablet Daily 11/23/2023 Active Lisinopril 40 MG TAKE 1 TABLET DAILY for 90 days Active meloxicam 15 mg oral tablet (5 sources) Nonsteroidal Anti-inflammatory Drug Start: 07-18-2024 take 1 tablet by mouth once daily Meloxicam 15 mg tablet Active 15 MG PO daily 14 July 18, 2024 1:00am DO NOT RECONCILE UNTIL DOS 07/19/24 TO BE USED POST OP oxyCODONE hydrochloride 5 mg oral tablet (5 sources) Opioid Agonist Start: 07-18-2024 take 1 tablet by mouth every six hours as needed for pain Oxycodone 5 mg tablet Active 5 MG PO Q6H as needed for Pain 15 01July 18, 2024 DO NOT RECONCILE UNTIL DOS 07/19/24 TO BE USED POST OP pioglitazone 15 mg oral tablet (20 sources) Peroxisome Proliferator Receptor alpha Agonist, Peroxisome Proliferator Receptor gamma Agonist, Thiazolidinedione Start: 08-31-2024 take 1 tablet by mouth once daily Pioglitazone 15 mg tablet Active 0 .ROUTE .COMPLEX August 31, 2024 2:27pm TAKE 1 TABLET BY MOUTH EVERY DAY Start: 01-17-2024 End: 08-31-2024 take 1 tablet by mouth once daily Pioglitazone 15 mg tablet Discontinued 15 MG PO every day at noon June 22, 2024 1:00am August 31, 2024 2:27pm TAKE 1 TABLET BY MOUTH EVERY DAY Start: 09-13-2023 End: 06-22-2024 take 1 tablet by mouth once daily Pioglitazone 15 mg tablet Discontinued 0 .ROUTE .COMPLEX June 05, 2024 4:07pm June 22, 2024 11:09am TAKE 1 TABLET BY MOUTH EVERY DAY Start: 06-18-2021 End: 09-13-2023 take 1 tablet by mouth once daily in the morning Pioglitazone 15 mg tablet Discontinued 15 MG PO Every morning June 18, 2021 1:00am September 13, 2023 3:16pm polyethylene glycol 3350 52307 mg powder for oral solution (20 sources) Osmotic Laxative Start: 07-18-2024 Polyethylene Glycol 3350 (Miralax) 17 gram powder in packet Active 17 GM PO daily 14 14 July 18, 2024 1:00am 1 packet mixed with 8 ounces of fluid. DO NOT RECONCILE UNTIL DOS 07/19/24 TO BE USED POST OP rosuvastatin calcium 20 mg oral tablet (20 sources) HMG-CoA Reductase Inhibitor Start: 06-22-2024 take 1 tablet by mouth once daily at bedtime Rosuvastatin 20 mg tablet Active 20 MG PO Daily at bedtime June 22, 2024 1:00am TAKE 1 TABLET ONCE DAILY Start: 05-15-2024 End: 06-22-2024 Rosuvastatin 20 mg tablet Discontinued 0 .ROUTE .COMPLEX May 15, 2024 5:55pm June 22, 2024 11:09am TAKE 1 TABLET ONCE DAILY Start: 01-14-2018 End: 05-15-2024 take 1 tablet by mouth once daily at bedtime Rosuvastatin 20 mg Tablet Discontinued 20 MG PO Daily at bedtime January 14, 2018 12:00am May 15, 2024 5:55pm Saxagliptin-Metformin 5-1,000 mg tablet, ER multiphase 24 hr (20 sources) Start: 06-22-2024 take 1 tablet by mouth once daily Saxagliptin-Metformin 5-1,000 mg tablet, ER multiphase 24 hr Active 1 TAB PO Daily June 22, 2024 3:11pm Start: 06-22-2024 take 1 tablet by melodie th once daily Saxagliptin-Metformin 5-1,000 mg tablet, ER multiphase 24 hr Active 1 TAB PO Daily June 22, 2024 2:11pm Start: 06-05-2024 End: 06-22-2024 take 1 tablet by mouth once daily Saxagliptin-Metformin 5-1,000 mg tablet, ER multiphase 24 hr Discontinued 1 TAB PO Daily June 05, 2024 2:12pm June 22, 2024 11:06am Start: 06-05-2024 End: 06-22-2024 take 1 tablet by mouth once daily Saxagliptin-Metformin 5-1,000 mg tablet, ER multiphase 24 hr Discontinued 1 TAB PO Daily June 05, 2024 1:12pm June 22, 2024 10:06am Start: 05-08-2024 End: 06-05-2024 take 1 tablet by mouth once daily Saxagliptin-Metformin 5-1,000 mg tablet, ER multiphase 24 hr Discontinued 1 TAB PO Daily May 08, 2024 1:00am June 05, 2024 2:12pm Start: 05-08-2024 End: 06-05-2024 take 1 tablet [...] 2024 12:00am simvastatin 5 mg oral tablet (17 sources) HMG-CoA Reductase Inhibitor take 1 tablet by mouth at bedtime simvastatin (Zocor) 5 MG tablet Take 5 mg by mouth at bedtime Active Completed/Discontinued Medications Medication Drug Class(es) Dates Sig (Normalized) Sig (Original) acetaminophen 325 mg / oxyCODONE hydrochloride 5 mg oral tablet (20 sources) Opioid Agonist Start: 07-04-2021 End: 04-25-2024 take 1 tablet by mouth every six hours as needed for pain Oxycodone-Acetamino phen (Percocet) 5-325 mg tablet Discontinued 1 TAB PO Q6H as needed for left hip pain 15 01July 04, 2021 November 02, 2023 10:06am Start: 01-29-2018 End: 06-18-2021 take 1 tablet by mouth every three hours as needed for pain Oxycodone-Acetaminophen 5-325 mg Tablet Discontinued 1 TAB PO Q3H as needed for Pain scale 1-5 0 January 29, 2018 12:00am June 18, 2021 12:30pm ascorbic acid 500 mg oral tablet (10 sources) Vitamin C Start: 06-18-2021 End: 05-08-2024 take 1 tablet by mouth once daily Ascorbic Acid (Vitamin C) (Vitamin C) 500 mg Tablet Discontinued 500 MG PO Daily June 18, 2021 1:00am May 08, 2024 12:21pm empagliflozin 10 mg oral tablet (10 sources) Sodium-Glucose Cotransporter 2 Inhibitor Start: 01-21-2024 End: 06-22-2024 take 1 tablet by mouth once daily in the morning Empagliflozin (Jardiance) 10 mg tablet Discontinued 10 MG PO Every morning May 08, 2024 1:00am June 22, 2024 11:05am hydrOXYzine pamoate 50 mg oral capsule (10 sources) Antihistamine Start: 01-29-2018 End: 06-18-2021 take 1 capsule by mouth every six hours as needed for muscle spasms Hydroxyzine Pamoate 50 mg Capsule Discontinued 50 MG PO Q6H as needed for Muscle Spasm 0 January 29, 2018 12:00am June 18, 2021 12:33pm HYLAN G-F 20 (7 sources) Start: 10-23-2016 Synvisc October, 6 mL metFORMIN hydrochloride 1000 mg / SITagliptin 50 mg oral tablet (20 sources) Biguanide, Dipeptidyl Peptidase 4 Inhibitor Start: 05-27-2022 take 50-1000 mg by mouth twice daily Janumet 50-1,000mg Janumet 50-1,000mg, 1 (one) Tablet two times daily # 180, 05/27/2022, Ref. x3. Active oral two times daily for 90 *Pick strength-form from [employer] for eRX* May, Active Start: 01-14-2018 End: 06-22-2024 take 1 tablet by mouth twice daily Sitagliptin Phos-Metformin (Janumet) 50-1,000 mg tablet Discontinued 1 TAB PO Twice daily June 22, 2024 1:00am June 22, 2024 3:11pm take 1 tablet by melodie th every [...] as needed Orally every 12 hrs Not-Taking/PRN [place] 1-Qpw-Tzi-Fish Oil (Fish Oil) 1,000 mg (120 mg-180 mg) Capsule (10 sources) Start: 01-14-2018 End: 06-18-2021 take 1 capsule by mouth once daily [place] 2-Oqg-Bcp-Fish Oil (Fish Oil) 1,000 mg (120 mg-180 mg) Capsule Discontinued 1000 MG PO Daily January 13, 2018 11:00pm June 18, 2021 11:33am Start: 01-14-2018 End: 06-18-2021 take 1 capsule by mouth once daily [place] 8-Gzu-Xhq-Fish Oil (Fish Oil) 1,000 mg (120 mg-180 mg) Capsule Discontinued 1000 MG PO Daily January 14, 2018 12:00am June 18, 2021 12:33pm quinapril 40 mg oral tablet (20 sources) Angiotensin Converting Enzyme Inhibitor Start: 01-14-2018 End: 04-25-2024 take 1 tablet by mouth once daily at bedtime Quinapril 40 mg Tablet Discontinued 40 MG PO Daily at bedtime January 14, 2018 12:00am November 23, 2023 1:27pm Zinc (10 sources) Start: 06-18-2021 End: 11-23-2023 take 1 tablet by mouth once daily Zinc 50 mg Tablet Discontinued 50 MG PO Daily June 18, 2021 1:00am November 23, 2023 1:27pm Start: 06-18-2021 End: 11-23-2023 take 1 tablet [...] Problem Date Documented Date Episodic/Chronic Abdominal hernia (2 sources) Hiatal hernia 01-17-2024 Episodic Abdominal pain (6 sources) Right upper quadrant pain; Translations: [Abdominal pain, right upper quadrant] 06-08-2024 Episodic Diabetes mellitus with complications (20 sources) Type 2 diabetes mellitus with hyperglycemia; Translations: [Type 2 diabetes mellitus] Onset: 08-13-2022 Chronic Diabetes mellitus without complication (20 sources) Type 2 diabetes mellitus; Translations: [Diabetes mellitus] Onset: 04-19-2023 01-17-2024 Chronic Disorders of lipid metabolism (20 sources) Hyperlipidemia, unspecified; Translations: [Hypercholesterolemia] Onset: 04-02-2022 Chronic Esophageal disorders (2 sources) Gastroesophageal reflux disease 01-17-2024 Chronic Essential hypertension (20 sources) Essential (primary) hypertension; Translations: [Essential hypertension] Onset: 04-04-2022 Chronic Hyperplasia of prostate (9 sources) Benign prostatic hyperplasia; Translations: [Benign prostatic hyperplasia without lower urinary tract symptoms] Onset: 01-21-2024 Chronic Open wounds of extremities (11 sources) Laceration of left ring finger; Translations: [Laceration without foreign body of left ring finger without damage to nail, initial encounter] 11-02-2023 Episodic Osteoarthritis (20 sources) Osteoarthritis of hip; Translations: [Unilateral primary osteoarthritis, right hip] Onset: 04-19-2023 01-17-2024 Chronic Other aftercare (7 sources) Patient encounter status; Translations: [Aftercare following joint replacement surgery] Chronic Other connective tissue disease (7 sources) History of total hip arthroplasty; Translations: [Presence of right artificial hip joint] Chronic Other connective tissue disease (20 sources) History of reverse prosthetic total arthroplasty of left shoulder; Translations: [Presence of left artificial shoulder joint] Onset: 08-11-2024 07-18-2024 Chronic Other connective tissue disease (4 sources) Presence of left artificial shoulder joint; Translations: [Shoulder joint replacement] Onset: 08-07-2024 08-07-2024 Chronic Other ear and sense organ disorders (20 sources) Asymmetrical sensorineural hearing loss; Translations: [Unspecified sensorineural hearing loss] Onset: 04-19-2023 04-19-2023 Chronic Other ear and sense organ disorders (18 sources) Hearing loss; Translations: [Unspecified hearing loss, unspecified ear] Onset: 04-19-2023 04-19-2023 Chronic Other nervous system disorders (20 sources) Chronic pain; Translations: [Other chronic pain] Onset: 04-19-2023 04-19-2023 Chronic Other nervous system disorders (20 sources) Difficulty walking; Translations: [Difficulty in walking, not elsewhere classified] Onset: 04-19-2023 04-19-2023 Chronic Other nervous system disorders (20 sources) Shoulder pain; Translations: [Other acute postprocedural pain] Onset: 08-11-2024 08-11-2024 Episodic Other non-epithelial cancer of skin (2 sources) Malignant neoplasm of skin 01-17-2024 Episodic Other non-traumatic joint disorders (7 sources) Pain in left knee; Translations: [Pain in left knee] Episodic Other non-traumatic joint disorders (10 sources) Anterior knee pain; Translations: [Pain in right knee] 06-02-2023 Episodic Comment on above: Problem List clean-u p per request of Phys. EHR Cmte Other non-traumatic joint disorders (1 source) Mass of shoulder region; Translations: [Other specified joint disorders, right shoulder] 05-11-2024 Episodic Other non-traumatic joint disorders (20 sources) Other specified joint disorders, right shoulder; Translations: [Other symptoms referable to joint, shoulder region] 05-11-2024 Episodic Other screening for suspected conditions (not mental disorders or infectious disease) (15 sources) Encounter for screening for malignant neoplasm of prostate; Translations: [Raised prostate specific antigen] Onset: 01-21-2024 Episodic Residual codes; unclassified (1 source) Family history of cancer; Translations: [Family history of malignant neoplasm of prostate] Onset: 01-21-2024 Episodic Residual codes; unclassified (2 sources) Family history of prostate cancer 01-21-2024 Episodic Past or Other Problems Problem Classification Problem Date Documented Date Episodic/Chronic Other connective tissue disease (20 sources) History of total knee arthroplasty; Translations: [Presence of left artificial knee joint] Onset: 04-19-2023 Resolved: 04-19-2023 04-19-2023 Chronic Other ear and sense organ disorders (20 sources) Bilateral tinnitus; Translations: [Tinnitus, bilateral] Onset: 04-19-2023 04-19-2023 Episodic Other ear and sense organ disorders (18 sources) Impacted cerumen in left ear; Translations: [Impacted cerumen, left ear] Onset: 04-21-2023 04-21-2023 Episodic Other non-traumatic joint disorders (18 sources) Pain in left knee; Translations: [Pain in joint, lower leg] Onset: 04-19-2023 04-19-2023 Episodic Other non-traumatic joint disorders (9 sources) Pain in left shoulder; Translations: [Left shoulder pain] Onset: 05-11-2024 05-10-2024 Episodic Otitis media and related conditions (20 sources) Postmastoidectomy complication; Translations: [Other disorders following mastoidectomy, unspecified ear] Onset: 04-19-2023 04-19-2023 Episodic Results Test Name Value Interpretation Reference Range Facility X-ray reportOrdered By: Bipin Murguia on 08-07-2024 Study report [facility] [place] [facility] [place] [address] XRay Report Signed Patient: Lele Gaspar MR#: [id number] : 1945 Acct:[id number] Age/Sex: 79 / M ADM Date: 5 Loc: [facility] [place] [facility] Room: Type: [facility] CLI Attending Dr: David Real DO Copies to: David Real DO~ Ordering Provider: David Real DO Date of Service: 08/07/24 XR/XR shoulder LT min 2V*: Z96.612 - Presence of leftartificial shoulder joint 3 views left shoulder plain film HISTORY: Status post right left total shoulder arthroplasty COMPARISON: 07/19/2024 ACUTE FINDINGS: None DEGENERATIVE CHANGE: Unremarkable SOFT TISSUE FINDINGS: Unremarkable JOINT EFFUSION: None POSTOP CHANGES: Stable hardware without complication BONY MINERALIZATION: Adequate XR/XR shoulder LT min 2V* IMPRESSION: Stable uncomplicated left shoulder arthroplasty Impression dictated by: Anupam Murguia M.D.08/07/2024 3:55 PM Dictation Location: [place] [address] Transcribed By: [facility] 08/07/241554 Dictated By: Anupam Murguia DO 08/07/24 155 Signed By: 08/07/24 1555 [facility] XR shoulder LT min 2V*on XR shoulder LT min 2V* [facility] [place] [address] XRay Report Signed Patient: Lele Gaspar MR#: [id number] : 1945 Acct:[id number] Age/Sex: 79 / M ADM Date: 08/07/24 Loc: [facility] [place] Room: Type: REG CLI Attending Dr: David Real DO Copies to: David Real DO Ordering Provider: David Real DO Date of Service: 08/07/24 XR/XR shoulder LT min 2V*: Z96.612 - Presence of left artificial shoulder joint 3 views left shoulder plain film HISTORY: Status post right left total shoulder arthroplasty COMPARISON: 07/19/2024 ACUTE FINDINGS: None DEGENERATIVE CHANGE: Unremarkable SOFT TISSUE FINDINGS: Unremarkable JOINT EFFUSION: None POSTOP CHANGES: Stable hardware without complication BONY MINERALIZATION: Adequate XR/XR shoulder LT min 2V* IMPRESSION: Stable uncomplicated left shoulder arthroplasty Impression dictated by: Anupam Murguia M.D.08/07/2024 3:55 PM Dictation [facility] Transcribed By: [facility] 08/07/241554 Dictated By: Anupam Murguia DO 08/07/241554 Signed By: 08/07/241554 Normal [facility] Glucose Glucometer (BldC) [M ass/Vol]Ordered By: David Real on 07-19-2024 Glucose [Mass/Vol] Capillary blood glucose measurement by glucometer (mass/volume) [facility] Comment on above: Random Glucose Refer ence Range is dependent on time and content of last meal. Glucose of more than 200 mg/dL in a nonstressed, ambulatory subject supports the diagnosis of Diabetes Mellitus. Glucose Poct Glucometerson 0 07-19-2024 Commemt1 Glu2: Cleaned Meter Normal [facility] Comment on above: Result Comment: PERF ORMED BY: [facility] [address] [place] [address] PATHOLOGIST TELECINE OPERATOR DAYSI ARAUZ M.D. Performed By: #### G LULS #### Point of Care testing , Glucose [Mass/Vol] 207 mg/dL Normal [facility] Comment on above: Result Comment: [place] Glucose Reference Range is dependent on time and content of last meal. Glucose of more than 200 mg/dL in a nonstressed, ambulatory subject supports the diagnosis of Diabetes Mellitus. Performed By: #### G LULS #### Point of Care testing , Glucose [Mass/Vol] 198 mg/dL Normal [facility] Comment on above: Result Comment: [place] Glucose Reference Range is dependent on time and content of last meal. Glucose of more than 200 mg/dL in a nonstressed, ambulatory subject supports the diagnosis of Diabetes Mellitus. PERFORMED BY: [facility] [place] [address] PATHOLOGIST TELECINE OPERATOR DAYSI ARAUZ M.D. Performed By: #### G JIMMIE #### Point of Care testing , Siva 07-19-2024 L -- ---- Specimen: [id number] Received: 07/19/24 Status: KINGRadha Amarjit Num: [id number] Spec Type: Surgical Subm Dr: David Real DO Tissues: A Bone Fragments - Other than Path Fracture (LEFT SHOULDER) Procedures: HE/2, Gross/Micro L3, Decalcification ---- Age/ Patient Sex Location Account Attending Physician ---- Lele Gaspar 79/M [place] [id number] David Real DO ---- SPEC NUM: [id number] RECD: 07/19/24 STATUS: ECHO OCASIO NUM: [id number] VIDA: 07/19/[address] [facility] [address]: David Real DO ENTERED: 07/19/[address] [facility] [address]: EDWARD TYPE: Surgical DEPT: S ENTERED BY: [id number] RECV BY: [id number] ORDERED: HE/2, Gross/Micro L3, Decalcification ORDERED: HE/2, Gross/Micro L3, Decalcification Pathological Diagnosis Left shoulder bone and tissue, total shoulder arthroplasty -Humeral head with severe degenerative osteoarthritis, displaying marked articular erosion and cortical eburnation with mildly associated bony remodelings, including patchy mild irregular thickening of the underlying associated trabecular bone, and at least mild osteophytic degenerations, consistent with the severe degenerative joint disease of the left shoulder -Incidental background focal mild osteopenia is also noticed Clinical Information L shoulder osteoarthritis Gross Description Part A is received in formalin labeled with the patients name, date of , and L shoulder bone and tissue is a humeral head, 5.5 x 4.9 x 2.5 cm with detached fragments of fibrofatty tissue, 5.5 x 4 x 1.3 cm in aggregate. The articular surface is remarkable for granular degeneration and eburnation. The subarticular capsular surface ranges from less than 0.1 to 0.2 cm in thickness. The medullary bone is philippe, firm and uniform. The fibrofatty tissue is sectioned to reveal rosenthal-pink to yellow-philippe, glistening and uniform cut surfaces. Ear Muff Assembler sections of the bone are submitted in A1?A2 after decalcification. (2, , [id number])MARCO ---- Specimen: [id number] Received: 07/19/24 Status: ECHO Ocasio Num: [id number] Spec Type: Surgical Subm Dr: David Real DO Tissues: A Bone Fragments - Other than Path Fracture (LEFT SHOULDER) Procedures: HE/2, Gross/Micro L3, Decalcification ---- Patient: Lele Gaspar [id number] (Continued) ---- Specimen: [id number] Received: 07/19/24 (Continued) Signed (signature on file) Shruti Sewell MD 07/21/24 1555 ---- Specimen: [id number] Received: 07/19/24 Status: ECHO Ocasio Num: [id number] Spec Type: Surgical Subm Dr: David Real DO Tissues: A Bone Fragments - Other than Path Fracture (LEFT SHOULDER) Procedures: HE/2, Gross/Micro L3, Decalcification ---- Patient: Lele Gaspar Nina [id number] (Continued) ---- Specimen: [id number] Received: 07/19/24 (Continued) Microscopic Description Microscopic examinations are performed supporting the above interpretation CPT Codes 78108 [id number] ---- ---- Specimen: [id number] Received: 07/19/24 Status: ECHO Ocasio Num: [id number] Spec Type: Surgical Subm Dr: David Real DO Tissues: A Bone Fragments - Other than Path Fracture (LEFT SHOULDER) Procedures: HE/2, Gross/Micro L3, Decalcification ---- Patient: Lele Gaspar [id number] (Continued) ---- Signed (signature on file) Chin-Eber Sewell MD 07/21/24 1555 Normal [facility] No Panel InformationOrdered By: David Real on 07-19-2024 Bedside Glucose Comment Glu2: cleaned meter [facility] XR shoulder LT 1Von 07-19-19 25 XR shoulder LT 1V [facility] [place] [address] XRay Report Signed Patient: Lele Gaspar MR#: [id number] : 1945 Acct:[id number] Age/Sex: 79 / M ADM Date: 07/19/24 Loc: IN Room: Type: [facility] Attending Dr: David Real DO Copies to: David Real DO Ordering Provider: David Real DO Date of Service: 07/19/24 XR/XR shoulder LT 1V: Post op shoulder replacement ([id number]) XR/XR shoulder LT 1V: INTRA-OP Single view shoulder plain film HISTORY: Intraoperative assessment of left total reverse shoulder COMPARISON: 05/11/2024 ACUTE FINDINGS: None DEGENERATIVE CHANGE: Unremarkable SOFT TISSUE FINDINGS: Unremarkable JOINT EFFUSION: None POSTOP CHANGES: Adequate alignment of hardware. No hardware failure. BONY MINERALIZATION: Adequate XR/XR shoulder LT 1V IMPRESSION: Adequate left shoulder arthroplasty Single view left shoulder postop assessment at 1116 hours Stable hardware without hardware complication. Stable left shoulder arthroplasty Impression dictated by: Anupam Murguia M.D.07/19/2024 3:20 PM Dictation Location: [employer]20 Transcribed By: [facility] 07/19/24 1520 Dictated By: Anupam Murguia DO 07/19/24 1515 Signed By: 07/19/24 1520 Normal [facility] Basophils Auto (Bld) [#/Vol] on 07-14-2024 Basophils (Bld) [#/Vol] Automated basoph il count 0.0-0.1 [facility] Basophils/100 WBC Auto (Bld) on 07-14-2024 Basophils/100 WBC (Bld) Automated basophil % 0. 2-2.0 [facility] Eosinophils/100 WBC Auto (Bl d)on 07-14-2024 Eosinophils/100 WBC (Bld) Automated eosinophil % 0.9-7.0 [facility] Erythrocyte distribution wid th Auto (RBC) [Ratio]on 07-14-2024 Erythrocyte distribution width (RBC) [Ratio] Erythrocyte distribution width [Ratio] by Automated count 11.0-15.0 [facility] Estimated glomerular filtrat ion rate (GFR) non- Americanon 07-14-2024 GFR/1.73 sq M.predicted among non-blacks MDRD (S/P/Bld) [Vol rate/Area] Estimated glomerular filtration rate (GFR) non- Low >=60 mL/min/1.73m 2 [facility] Fibrin D-dimer [Presence] in Platelet poor plasma by Latex agglutinationon 07-14-2024 Fibrin D-dimer LA Ql (PPP) Fibrin D-dimer [Presence] in Platelet poor plasma by Latex agglutination <=0.59 [facility] Comment on above: Increases in D-Dimer concentration observed withthromboembolic events can be variable due to localization,size, and age of the thrombus. Therefore, a thromboembolicevent cannot be diagnosed with certainty on the basis of thereference range. D-Dimers may also be elevated for a varietyof disorders including advanced age, , coronarydisease, cancer, liver disease, infection, inflammation,hematoma, DIC, trauma, post-surgery, diabetes, thrombolyticor anticoagulant therapy, stress, and generalizedhospitalization. Globulin Calc (S) [Mass/Vol] on 07-14-2024 Globulin (S) [Mass/Vol] Serum globulin measurement by calculation (mass/volume) [facility] Hematocrit Auto (Bld) [Volum e fraction]on 07-14-2024 Hematocrit (Bld) [Volume fraction] Hematocrit [Volume Fraction] of Blood by Automated count Low 42.0-54.0 [facility] Hemoglobin [Mass/volume] in Bloodon 07-14-2024 Hemoglobin (Bld) [Mass/Vol] Hemoglobin [Mass/volume] in Blood Low 14.0-18.0 [facility] Laboratory - Chemistry and C hemistry - challengeon 07-14-2024 Albumin [Mass/Vol] 3.8 g/dL 3.4-5.0 [facility] ALP [Catalytic activity/Vol] 115 U/L 46-116 [facility] ALT [Catalytic activity/Vol] 24 U/L 16-63 [facility] AST [Catalytic activity/Vol] 11 U/L Low 15-37 [facility] Bilirubin [Mass/Vol] 0.3 mg/dL 0.2-1.0 [facility] Calcium [Mass/Vol] 9.2 mg/dL 8.5-10.1 [facility] Chloride [Moles/Vol] 104 mmol/L 98-107 [facility] CO2 [Moles/Vol] 28.5 mmol/L 21.0-32.0 [facility] Creatinine [Mass/Vol] 1.36 mg/dL High 0.70-1.30 [facility] GFR/1.73 sq M.predicted MDRD (S/P/Bld) [Vol rate/Area] mL/min/{1.73_m2} >=60 mL/min/1.73m 2 [facility] Glucose [Mass/Vol] 213 mg/dL High 74-106 [facility] Potassium [Moles/Vol] 4.7 mmol/L 3.5-5.1 [facility] Protein [Mass/Vol] 6.5 g/dL 6.4-8.2 [facility] Sodium [Moles/Vol] 140 mmol/L 136-145 [facility] Urea nitrogen [Mass/Vol] 21.0 mg/dL High 7.0-18.0 [facility] Urea nitrogen/Creatinine [Mass ratio] 15.4 mg/mg [facility] Laboratory - Hematology and Cell countson 07-14-2024 Immature granulocytes/100 WBC (Bld) 0.4 % 0.0-0.5 [facility] Leukocytes [#/volume] correc aime for nucleated erythrocytes in Blood by Automated counon 07-14-2024 WBC corrected for nucl RBC Auto (Bld) [#/Vol] Leukocytes [#/volume] corrected for nucleated erythrocytes in Blood by Automated coun 4.0-11.0 [facility] Lymphocytes Auto (Bld) [#/Vo l]on 07-14-2024 Lymphocytes (Bld) [#/Vol] Lymphocytes [#/volume] in Blood by Automated count Low 1.2-3.8 [facility] Lymphocytes/100 WBC Auto (Bl d)on 07-14-2024 Lymphocytes/100 WBC (Bld) Lymphocytes/100 leukocytes in Blood by Automated count 20.5-60.0 [facility] MCH Auto (RBC) [Entitic mass ]on 07-14-2024 MCH (RBC) [Entitic mass] MCH [Entitic mass] by Automated count 25.9-34.0 [facility] MCHC Auto (RBC) [Mass/Vol]on 07-14-2024 MCHC (RBC) [Mass/Vol] MCHC [Mass/volume] by Automated count 29.9-35.2 [facility] MCV Auto (RBC) [Entitic vol] on 07-14-2024 MCV (RBC) [Entitic vol] MCV [Entitic vol ume] by Automated count High 80.0-94.0 [facility] Monocytes Auto (Bld) [#/Vol] on 07-14-2024 Monocytes (Bld) [#/Vol] Automated blood monocyte count 0.3-0.8 [facility] Monocytes/100 WBC Auto (Bld) on 07-14-2024 Monocytes/100 WBC (Bld) Automated monocyte % 1. 7-12.0 [facility] Neutrophils Auto (Bld) [#/Vo l]on 07-14-2024 Neutrophils (Bld) [#/Vol] Neutrophils [#/volume] in Blood by Automated count 1.4-6.5 [facility] Neutrophils/100 WBC Auto (Bl d)on 07-14-2024 Neutrophils/100 WBC (Bld) Automated neutrophil % 43.0-75.0 [facility] No Panel Informationon 07-14 Eosinophils # (Auto) 0.2 10 3/uL 0.0-0.7 [facility] Immature Granulocyte # (Auto) 0.02 10 3/uL 0.00-0.03 [facility] Platelet mean volume Auto (B ld) [Entitic vol]on 07-14-2024 Platelet mean volume (Bld) [Entitic vol] Platelet mean volume [Entitic volume] in Blood by Automated count 9.5-13.5 [facility] Platelets Auto (Bld) [#/Vol] on 07-14-2024 Platelets (Bld) [#/Vol] Platelets [#/vol ume] in Blood by Automated count 150-450 [facility] RBC Auto (Bld) [#/Vol]on RBC (Bld) [#/Vol] Erythrocytes [#/volume] in Blood by Automated count Low 4.70-6.10 [facility] Serum or plasma albumin/glob ulin mass ratioon 07-14-2024 Albumin/Globulin [Mass ratio] Serum or plasma albumin/globulin mass ratio [facility] Serum or plasma anion gap de terminationon 07-14-2024 Anion gap [Moles/Vol] Serum or plasma an ion gap determination [facility] Alanine aminotransferase [En zymatic activity/volume] in Serum or PlasmaOrdered By: David Real on 06-22-2024 ALT [Catalytic activity/Vol] Alanine aminotransferase [Enzymatic activity/volume] in Serum or Plasma 7-52 [facility] Albumin [Mass/volume] in Ser um or Plasma by Bromocresol green (BCG) dye binding methoOrdered By: David Real on 06-22-2024 Albumin BCG dye [Mass/Vol] Albumin [Mass/volume] in Serum or Plasma by Bromocresol green (BCG) dye binding metho 3.5-5.7 [facility] Alkaline phosphatase [Enzyma tic activity/volume] in Serum or PlasmaOrdered By: David Real on 06-22-2024 ALP [Catalytic activity/Vol] Alkaline phosphatase [Enzymatic activity/volume] in Serum or Plasma 34-104 [facility] Appearance of UrineOrdered B y: David Real on 06-22-2024 Appearance (U) Urine appearance Clear [facility] Aspartate aminotransferase [ Enzymatic activity/volume] in Serum or PlasmaOrdered By: David Real on 06-22-2024 AST [Catalytic activity/Vol] Aspartate aminotransferase [Enzymatic activity/volume] in Serum or Plasma 13-39 [facility] Basophils Auto (Bld) [#/Vol] Ordered By: David Real on 06-22-2024 Basophils (Bld) [#/Vol] Automated basoph il count 0.0-0.2 [facility] Basophils/100 WBC Auto (Bld) Ordered By: David Real on 06-22-2024 Basophils/100 WBC (Bld) Automated basophil % . [facility] Bilirubin Test strip Ql (U)O rdered By: David Real on 06-22-2024 Bilirubin Ql (U) Bilirubin.total [Presence] in Urine by Test strip Negative [facility] Bilirubin.total [Mass/volume ] in Serum or PlasmaOrdered By: David Real on 06-22-2024 Bilirubin [Mass/Vol] Bilirubin.total [Mass/volume] in Serum or Plasma 0.3-1.0 [facility] Blood estimated average gluc ose determination by estimation from glycated hemoglobinOrdered By: David Real on 06-22-2024 Average glucose Estimated from glycated hemoglobin (Bld) [Mass/Vol] Glucose mean value [Mass/volume] in Blood Estimated from glycated hemoglobin [facility] CMP with reflex to A1Con Albumin [Mass/Vol] 4.4 g/dL Normal 3.5-5.7 [facility] Comment on above: Performed By: #### C MP wRFX A1C, CBC, EBS A1C #### [facility] [address] Albumin/Globulin [Mass ratio] 2.4 {ratio} Normal [facility] Comment on above: Performed By: #### C MP wRFX A1C, CBC, EBS A1C #### [facility] [address] ALP [Catalytic activity/Vol] 78 U/L Normal 34-104 [facility] Comment on above: Result Comment: PERF ORMED BY: [place] [address] PATHOLOGIST TELECINE OPERATOR DAYSI ARAUZ M.D. Performed By: #### C MP wRFX A1C, CBC, EBS A1C #### [address] ALT [Catalytic activity/Vol] 14 U/L Normal 7-52 [facility] Comment on above: Performed By: #### C MP wRFX A1C, CBC, EBS A1C #### [address] Anion gap [Moles/Vol] 12.7 mmol/L Normal 6.0-15.0 [facility] Comment on above: Performed By: #### C MP wRFX A1C, CBC, EBS A1C #### [place] [address] [place] AST [Catalytic activity/Vol] 13 U/L Normal 13-39 [facility] Comment on above: Performed By: #### C MP wRFX A1C, CBC, EBS A1C #### [place] [address] [place] Bilirubin [Mass/Vol] 0.4 mg/dL Normal 0.3-1.0 [facility] Comment on above: Performed By: #### C MP wRFX A1C, CBC, EBS A1C #### [facility] [address] [place] [address] [place] Calcium [Mass/Vol] 9.5 mg/dL Normal 8.6-10.3 [facility] Comment on above: Performed By: #### C MP wRFX A1C, CBC, EBS A1C #### [address] Chloride [Moles/Vol] 106 mmol/L Normal 98-107 [facility] Comment on above: Performed By: #### C MP wRFX A1C, CBC, EBS A1C #### [address] CO2 [Moles/Vol] 25.9 mmol/L Normal 21.0-31.0 [facility] Comment on above: Performed By: #### C MP wRFX A1C, CBC, EBS A1C #### [address] Creatinine [Mass/Vol] 1.06 mg/dL Normal 0.70-1.30 [facility] Comment on above: Performed By: #### C MP wRFX A1C, CBC, EBS A1C #### [place] [address] [place] GFR/1.73 sq M.predicted MDRD (S/P/Bld) [Vol rate/Area] mL/min/{1.73_m2} Normal [facility] Comment on above: Performed By: #### C MP wRFX A1C, CBC, EBS A1C #### [address] Globulin (S) [Mass/Vol] 1.8 g/dL Normal [facility] Comment on above: Performed By: #### C MP wRFX A1C, CBC, EBS A1C #### [place] [address] [place] Glucose [Mass/Vol] 275 mg/dL High 70-100 [facility] Comment on above: Result Comment: ADA recommended reference range Performed By: #### C MP wRFX A1C, CBC, EBS A1C #### [address] Potassium [Moles/Vol] 4.6 mmol/L Normal 3.5-5.1 [facility] Comment on above: Performed By: #### C MP wRFX A1C, CBC, EBS A1C #### [facility] [address] Protein [Mass/Vol] 6.2 g/dL Low 6.4-8.9 [facility] Comment on above: Performed By: #### C MP wRFX A1C, CBC, EBS A1C #### [facility] [address] Sodium [Moles/Vol] 140 mmol/L Normal 136-145 [facility] Comment on above: Performed By: #### C MP wRFX A1C, CBC, EBS A1C #### [facility] [address] Urea nitrogen [Mass/Vol] 19 mg/dL Normal 7-25 [facility] Comment on above: Performed By: #### C MP wRFX A1C, CBC, EBS A1C #### [facility] [address] Calcium [Mass/volume] in Ser um or PlasmaOrdered By: David Real on 06-22-2024 Calcium [Mass/Vol] Calcium [Mass/volume ] in Serum or Plasma 8.6-10.3 [facility] Carbon dioxide, total [Moles /volume] in Serum or PlasmaOrdered By: David Real on 06-22-2024 CO2 [Moles/Vol] Carbon dioxide, tota l [Moles/volume] in Serum or Plasma 21.0-31.0 [facility] Chloride [Moles/volume] in S terri or PlasmaOrdered By: David Real on 06-22-2024 Chloride [Moles/Vol] Chloride [Moles/volume] in Serum or Plasma 98-107 [facility] Color Auto (U)Ordered By: Enrike Real on 06-22-2024 Color (U) Color of Urine by Auto Yellow Fi [facility] Complete Blood Count Auto Di ffon 06-22-2024 Basophils (Bld) [#/Vol] 0.0 10*3/uL Normal 0.0-0.2 [facility] Comment on above: Result Comment: PERF ORMED BY: [place] [address] PATHOLOGIST TELECINE OPERATOR DAYSI ARAUZ M.D. Performed By: #### C MP wRFX A1C, CBC, EBS A1C #### [address] Basophils/100 WBC (Bld) 0.6 % Normal . [facility] Comment on above: Performed By: #### C MP wRFX A1C, CBC, EBS A1C #### [address] Eosinophils (Bld) [#/Vol] 0.1 10*3/uL Normal 0.0-0.45 [facility] Comment on above: Performed By: #### C MP wRFX A1C, CBC, EBS A1C #### [address] Eosinophils/100 WBC (Bld) 2.2 % Normal . [facility] Comment on above: Performed By: #### C MP wRFX A1C, CBC, EBS A1C #### [address] Erythrocyte distribution width (RBC) [Ratio] 12.9 % Normal 12.0-14.8 [facility] Comment on above: Performed By: #### C MP wRFX A1C, CBC, EBS A1C #### [address] Hematocrit (Bld) [Volume fraction] 42.0 % Normal 38.8-50.0 [facility] Comment on above: Performed By: #### C MP wRFX A1C, CBC, EBS A1C #### [place] [address] [place] Hemoglobin (Bld) [Mass/Vol] 14.0 g/dL Normal 13.0-17.0 [facility] Comment on above: Performed By: #### C MP wRFX A1C, CBC, EBS A1C #### [place] [address] [place] Lymphocytes (Bld) [#/Vol] 0.7 10*3/uL Low 1.00-4.8 [facility] Comment on above: Performed By: #### C MP wRFX A1C, CBC, EBS A1C #### [address] Lymphocytes/100 WBC (Bld) 12.6 % Normal . [facility] Comment on above: Performed By: #### C MP wRFX A1C, CBC, EBS A1C #### [address] MCH (RBC) [Entitic mass] 33.4 pg Normal 27.5-35.2 [facility] Comment on above: Performed By: #### C MP wRFX A1C, CBC, EBS A1C #### [address] MCV (RBC) [Entitic vol] 100.4 fL Normal 83.5-101 [facility] Comment on above: Performed By: #### C MP wRFX A1C, CBC, EBS A1C #### [address] Mean Corpuscular HGB Conc 33.3 g/dL Normal 32.5-35.6 [facility] Comment on above: Performed By: #### C MP wRFX A1C, CBC, EBS A1C #### [address] Monocytes (Bld) [#/Vol] 0.3 10*3/uL Normal 0.0-0.8 [facility] Comment on above: Performed By: #### C MP wRFX A1C, CBC, EBS A1C #### [address] Monocytes/100 WBC (Bld) 6.0 % Normal . [facility] Comment on above: Performed By: #### C MP wRFX A1C, CBC, EBS A1C #### [address] Neutrophils (Bld) [#/Vol] 4.4 10*3/uL Normal 1.8-7.7 [facility] Comment on above: Performed By: #### C MP wRFX A1C, CBC, EBS A1C #### [address] Neutrophils/100 WBC (Bld) 78.6 % Normal . [facility] Comment on above: Performed By: #### C MP wRFX A1C, CBC, EBS A1C #### [address] NRBC% 0.1 /100{WBC} Normal 0-0.5 [facility] Comment on above: Performed By: #### C MP wRFX A1C, CBC, EBS A1C #### [address] Platelet mean volume (Bld) [Entitic vol] 9.0 fL Normal 6.6-10.1 [facility] Comment on above: Performed By: #### C MP wRFX A1C, CBC, EBS A1C #### [address] Platelets (Bld) [#/Vol] 201 10*3/uL Normal 150-450 [facility] Comment on above: Performed By: #### C MP wRFX A1C, CBC, EBS A1C #### [address] RBC (Bld) [#/Vol] 4.18 10*6/uL Normal 3.90-5.60 [facility] Comment on above: Performed By: #### C MP wRFX A1C, CBC, EBS A1C #### [address] WBC (Bld) [#/Vol] 5.6 10*3/uL Normal 4.1-10.5 [facility] Comment on above: Performed By: #### C MP wRFX A1C, CBC, EBS A1C #### [place] [address] [place] Creatinine [Mass/volume] in Serum or PlasmaOrdered By: David Real on 06-22-2024 Creatinine [Mass/Vol] Creatinine [Mass/volume] in Serum or Plasma 0.70-1.30 [facility] EBS A1C with Estimated Delma panchal 06-22-2024 Glucose [Mass/Vol] 160 mg/dL Normal [facility] Comment on above: Result Comment: PERF ORMED BY: [place] [address] PATHOLOGIST TELECINE OPERATOR DAYSI ARAUZ M.D. Performed By: #### C MP wRFX A1C, CBC, EBS A1C #### [address] ECG 12 lead ECGon 06-22-2024 ECG 12 lead ECG [facility] [place] [address] [place] [address] Electrocardiograph Report Signed Patient: Lele Gaspar MR#: [id number] : 1945 Acct:[id number] Age/Sex: 79 / M ADM Date: 06/22/24 Loc: Room: Type: [facility] Attending Dr: David Real DO Ordering Provider: [...] block Abnormal ECG Confirmed by Denia Perez ([id number]) on 06/22/2024 4:10:18 PM Referred By: Electronically Signed By: Denia Perez Transcribed By: MUS Signed By Denia Perez MD 5 1610 Normal [facility] Eosinophils Auto (Bld) [#/Vo l]Ordered By: David Real on 06-22-2024 Eosinophils (Bld) [#/Vol] Automated eosinophil count 0.0-0.45 [facility] Eosinophils/100 WBC Auto (Bl d)Ordered By: David Real on 06-22-2024 Eosinophils/100 WBC (Bld) Automated eosinophil % . [facility] Erythrocyte distribution wid th Auto (RBC) [Ratio]Ordered By: David Real on 06-22-2024 Erythrocyte distribution width (RBC) [Ratio] Erythrocyte distribution width [Ratio] by Automated count 12.0-14.8 [facility] Globulin Calc (S) [Mass/Vol] Ordered By: David Real on 06-22-2024 Globulin (S) [Mass/Vol] Serum globulin measurement by calculation (mass/volume) [facility] Glucose [Mass/volume] in Ser um or PlasmaOrdered By: David Real on 06-22-2024 Glucose [Mass/Vol] Glucose [Mass/volume ] in Serum or Plasma High 70-100 [facility] Comment on above: ADA recommended refe rence range Glucose [Mass/volume] in Uri ne by Test stripOrdered By: David Real on 06-22-2024 Glucose Test strip (U) [Mass/Vol] Glucose [Mass/volume] in Urine by Test strip High Normal [facility] Hematocrit Auto (Bld) [Volum e fraction]Ordered By: David Real on 06-22-2024 Hematocrit (Bld) [Volume fraction] Hematocrit [Volume Fraction] of Blood by Automated count 38.8-50.0 [facility] Hemoglobin A1c measurementOr dered By: David Real on 06-22-2024 HbA1c (Bld) [Mass fraction] 7.2 % High 4.3-5.6 [facility] Comment on above: Increased risk for d iabetes: 5.7 - 6.4diabetes: >6.4glycemic control for adults with diabetes: <7.0 Result Comment: Incr eased risk for diabetes: 5.7 - 6.4 diabetes: >6.4 glycemic control for adults with diabetes: <7.0 Performed By: #### C MP wRFX A1C, CBC, EBS A1C #### [address] Hemoglobin Test strip Ql (U) Ordered By: David Real on 06-22-2024 Hemoglobin Ql (U) Hemoglobin [Presence ] in Urine by Test strip Negative [facility] Hemoglobin [Mass/volume] in BloodOrdered By: David Real on 06-22-2024 Hemoglobin (Bld) [Mass/Vol] Hemoglobin [Mass/volume] in Blood 13.0-17.0 [facility] Ketones Test strip Ql (U)Ord ered By: David Real on 06-22-2024 Ketones Ql (U) Ketones [Presence] i n Urine by Test strip Negative [facility] Leukocyte esterase [Presence ] in Urine by Test stripOrdered By: David Real on 06-22-2024 Leukocyte esterase Test strip Ql (U) Leukocyte esterase [Presence] in Urine by Test strip Negative [facility] Leukocytes [#/volume] correc aime for nucleated erythrocytes in Blood by Automated counOrdered By: David Real on 06-22-2024 WBC corrected for nucl RBC Auto (Bld) [#/Vol] Leukocytes [#/volume] corrected for nucleated erythrocytes in Blood by Automated coun 4.1-10.5 [facility] Lymphocytes Auto (Bld) [#/Vo l]Ordered By: David Real on 06-22-2024 Lymphocytes (Bld) [#/Vol] Lymphocytes [#/volume] in Blood by Automated count Low 1.00-4.8 [facility] Lymphocytes/100 WBC Auto (Bl d)Ordered By: David Real on 06-22-2024 Lymphocytes/100 WBC (Bld) Lymphocytes/100 leukocytes in Blood by Automated count . [facility] MCH Auto (RBC) [Entitic mass ]Ordered By: David Real on 06-22-2024 MCH (RBC) [Entitic mass] MCH [Entitic mass] by Automated count 27.5-35.2 [facility] MCHC Auto (RBC) [Mass/Vol]Or dered By: David Real on 06-22-2024 MCHC (RBC) [Mass/Vol] MCHC [Mass/volume] by Automated count 32.5-35.6 [facility] MCV Auto (RBC) [Entitic vol] Ordered By: David Real on 06-22-2024 MCV (RBC) [Entitic vol] MCV [Entitic vol ume] by Automated count 83.5-101 [facility] Monocytes Auto (Bld) [#/Vol] Ordered By: David Real on 06-22-2024 Monocytes (Bld) [#/Vol] Automated blood monocyte count 0.0-0.8 [facility] Monocytes/100 WBC Auto (Bld) Ordered By: David Real on 06-22-2024 Monocytes/100 WBC (Bld) Automated monocyte % . [facility] Neutrophils Auto (Bld) [#/Vo l]Ordered By: David Real on 06-22-2024 Neutrophils (Bld) [#/Vol] Neutrophils [#/volume] in Blood by Automated count 1.8-7.7 [facility] Neutrophils/100 WBC Auto (Bl d)Ordered By: David Real on 06-22-2024 Neutrophils/100 WBC (Bld) Automated neutrophil % . [facility] Nitrite Test strip Ql (U)Ord ered By: David Real on 06-22-2024 Nitrite Ql (U) Nitrite [Presence] i n Urine by Test strip Negative [facility] No Panel InformationOrdered By: David Real on 06-22-2024 Estimated GFR (CKD-EPI) > 60.0 mL/Min [facility] Creatinine Clearance (Chem N/A [facility] Nucleated erythrocytes [Pres ence] in Blood by Automated countOrdered By: David Real on 06-22-2024 Nucleated RBC Auto Ql (Bld) Nucleated erythrocytes [Presence] in Blood by Automated count 0-0.5 [facility] Platelet mean volume Auto (B ld) [Entitic vol]Ordered By: David Real on 06-22-2024 Platelet mean volume (Bld) [Entitic vol] Platelet mean volume [Entitic volume] in Blood by Automated count 6.6-10.1 [facility] Platelets Auto (Bld) [#/Vol] Ordered By: David Real on 06-22-2024 Platelets (Bld) [#/Vol] Platelets [#/vol ume] in Blood by Automated count 150-450 [facility] Potassium [Moles/volume] in Serum or PlasmaOrdered By: David Real on 06-22-2024 Potassium [Moles/Vol] Potassium [Moles/volume] in Serum or Plasma 3.5-5.1 [facility] Protein Test strip (U) [Mass /Vol]Ordered By: David Real on 06-22-2024 Protein (U) [Mass/Vol] Protein [Mass/vol ume] in Urine by Test strip Negative [facility] Protein [Mass/volume] in Ser um or PlasmaOrdered By: David Real on 06-22-2024 Protein [Mass/Vol] Protein [Mass/volume ] in Serum or Plasma Low 6.4-8.9 [facility] RBC Auto (Bld) [#/Vol]Ordere d By: David Real on 06-22-2024 RBC (Bld) [#/Vol] Erythrocytes [#/volume] in Blood by Automated count 3.90-5.60 [facility] Serum or plasma albumin/glob ulin mass ratioOrdered By: David Real on 06-22-2024 Albumin/Globulin [Mass ratio] Serum or plasma albumin/globulin mass ratio [facility] Serum or plasma anion gap de terminationOrdered By: David Real on 06-22-2024 Anion gap [Moles/Vol] Serum or plasma an ion gap determination 6.0-15.0 [facility] Sodium [Moles/volume] in Ser um or PlasmaOrdered By: David Real on 06-22-2024 Sodium [Moles/Vol] Sodium [Moles/volume ] in Serum or Plasma 136-145 [facility] Specific gravity Test strip (U) [Rel density]Ordered By: David Real on 06-22-2024 Specific gravity (U) [Rel density] Specific gravity of Urine by Test strip 1.001-1.030 [facility] Urea nitrogen [Mass/volume] in Serum or PlasmaOrdered By: David Real on 06-22-2024 Urea nitrogen [Mass/Vol] Urea nitrogen [Mass/volume] in Serum or Plasma 7-25 [facility] Urinalysison 06-22-2024 Appearance (U) Clear Normal Clear [facility] Comment on above: Order Comment: Name Collection Type:: Clean-Voided Midstream Performed By: #### U A #### [address] [address] [place] Bilirubin,Urine Negative Normal Negative [facility] Comment on above: Order Comment: Name Collection Type:: Clean-Voided Midstream Performed By: #### U A #### [address] Color (U) Light-Yellow Normal Yellow [facility] Comment on above: Order Comment: Name Collection Type:: Clean-Voided Midstream Performed By: #### U A #### [address] Glucose Ql (U) >= High Normal [facility] Comment on above: Order Comment: Name Collection Type:: Clean-Voided Midstream Performed By: #### U A #### [address] Ketones Ql (U) Negative Normal Negative [facility] Comment on above: Order Comment: Name Collection Type:: Clean-Voided Midstream Performed By: #### U A #### [address] Leukocyte esterase Test strip Ql (U) Negative Normal Negative [facility] Comment on above: Order Comment: Name Collection Type:: Clean-Voided Midstream Performed By: #### U A #### [address] Nitrite,Urine Negative Normal Negative [facility] Comment on above: Order Comment: Name Collection Type:: Clean-Voided Midstream Performed By: #### U A #### [place] [address] [place] Occult Blood,Urine Negative Normal Negative [facility] Comment on above: Order Comment: Name Collection Type:: Clean-Voided Midstream Result Comment: PERF ORMED BY: [place] [address] PATHOLOGIST TELECINE OPERATOR DAYSI ARAUZ M.D. Performed By: #### U A #### [address] pH (U) 5.0 [pH] Normal 5.0-9.0 [facility] Comment on above: Order Comment: Name Collection Type:: Clean-Voided Midstream Performed By: #### U A #### [facility] [address] [place] [address] Protein,Urine Negative Normal Negative [facility] Comment on above: Order Comment: Name Collection Type:: Clean-Voided Midstream Performed By: #### U A #### [facility] [address] [place] [address] Specificy [place],Urine 1.030 Normal 1.001-1.030 [facility] Comment on above: Order Comment: Name Collection Type:: Clean-Voided Midstream Performed By: #### U A #### [address] Urobilinogen,Urine Normal Normal Normal [facility] Comment on above: Order Comment: Name Collection Type:: Clean-Voided Midstream Performed By: #### U A #### [address] Urobilinogen Test strip (U) [Mass/Vol]Ordered By: David Real on 06-22-2024 Urobilinogen (U) [Mass/Vol] Urobilinogen [Mass/volume] in Urine by Test strip Normal [facility] WBC Auto (Bld) [#/Vol]Ordere d By: David Real on 06-22-2024 WBC (Bld) [#/Vol] Leukocytes [#/volume ] in Blood by Automated count 4.1-10.5 [facility] pH Test strip (U)Ordered By: David Real on 06-22-2024 pH (U) pH of Urine by Test strip 5.0-9.0 [facility] Basophils Auto (Bld) [#/Vol] on 05-12-2024 Basophils (Bld) [#/Vol] Automated basoph il count 0.0-0.1 [facility] Basophils/100 WBC Auto (Bld) on 05-12-2024 Basophils/100 WBC (Bld) Automated basophil % 0. 2-2.[address] [facility] [address] shoulder LT wo conon 04-22 CT shoulder LT wo con [facility] [place] [address] [place] [address] CT Scan Report Signed Patient: Lele Gaspar MR#: [id number] : 1945 Acct:[id number] Age/Sex: 78 / M ADM Date: 05/12/24 Loc: CT Room: [facility] Attending Dr: David Real DO Copies to: [...] Hayes Jr., D.O.05/12/2024 6:13 PM Dictation Location: [place] [address] Transcribed By: [facility] 05/12/241812 Dictated By: Thom Hayes Jr, DO 05/12/241807 Signed By: 05/12/241812 Normal [facility] Cholesterol in LDL Calc [Mas s/Vol]on 05-12-2024 Cholesterol in LDL [Mass/Vol] Cholesterol in LDL [Mass/volume] in Serum or Plasma by calculation [facility] Comment on above: <100 mg/dl [id number] 0-129 mg/dl NEAR OR ABOVE [id number] mg/dl BORDERLINE [id number] mg/dl HIGH>190 mg/dl VERY HIGH Cholesterol in VLDL Calc [Ma ss/Vol]on 05-12-2024 Cholesterol in VLDL [Mass/Vol] Cholesterol in VLDL [Mass/volume] in Serum or Plasma by calculation [facility] Eosinophils/100 WBC Auto (Bl d)on 05-12-2024 Eosinophils/100 WBC (Bld) Automated eosinophil % 0.9-7.0 [facility] Erythrocyte distribution wid th Auto (RBC) [Ratio]on 05-12-2024 Erythrocyte distribution width (RBC) [Ratio] Erythrocyte distribution width [Ratio] by Automated count .0-15.0 [facility] Estimated glomerular filtrat ion rate (GFR) non- Americanon 05-12-2024 GFR/1.73 sq M.predicted among non-blacks MDRD (S/P/Bld) [Vol rate/Area] Estimated glomerular filtration rate (GFR) non- >=60 mL/min/1.73m 2 [facility] Globulin Calc (S) [Mass/Vol] on 05-12-2024 Globulin (S) [Mass/Vol] Serum globulin measurement by calculation (mass/volume) [facility] Glucose mean value [Mass/vol ume] in Blood Estimated from glycated hemoglobinon 05-12-2024 Average glucose Estimated from glycated hemoglobin (Bld) [Mass/Vol] Glucose mean value [Mass/volume] in Blood Estimated from glycated hemoglobin [facility] Hematocrit Auto (Bld) [Volum e fraction]on 05-12-2024 Hematocrit (Bld) [Volume fraction] Hematocrit [Volume Fraction] of Blood by Automated count Low 42.0-54.0 [facility] Hemoglobin [Mass/volume] in Bloodon 05-12-2024 Hemoglobin (Bld) [Mass/Vol] Hemoglobin [Mass/volume] in Blood Low 14.0-18.0 [facility] Laboratory - Chemistry and C hemistry - challengeon 05-12-2024 Albumin [Mass/Vol] 3.8 g/dL 3.4-5.0 [facility] ALP [Catalytic activity/Vol] 99 U/L 46-116 [facility] ALT [Catalytic activity/Vol] 24 U/L 16-63 [facility] AST [Catalytic activity/Vol] 15 U/L 15-37 [facility] Bilirubin [Mass/Vol] 0.5 mg/dL 0.2-1.0 [facility] Calcium [Mass/Vol] 8.8 mg/dL 8.5-10.1 [facility] Chloride [Moles/Vol] 104 mmol/L 98-107 [facility] Cholesterol [Mass/Vol] 145 mg/dL <=200 [facility] Cholesterol in HDL [Mass/Vol] 77 mg/dL High 40-60 [facility] Comment on above: > or =60 mg/dl - LOW CARDIOVASCULAR RISK<40 mg/dl - HIGH CARDIOVASCULAR RISK CO2 [Moles/Vol] 25.8 mmol/L 21.0-32.0 [facility] Creatinine [Mass/Vol] 1.11 mg/dL 0.70-1.30 [facility] GFR/1.73 sq M.predicted MDRD (S/P/Bld) [Vol rate/Area] mL/min/{1.73_m2} >=60 mL/min/1.73m 2 [facility] Glucose [Mass/Vol] 148 mg/dL High 74-106 [facility] Potassium [Moles/Vol] 4.2 mmol/L 3.5-5.1 [facility] Protein [Mass/Vol] 6.2 g/dL Low 6.4-8.2 [facility] Sodium [Moles/Vol] 141 mmol/L 136-145 [facility] Triglyceride [Mass/Vol] 66 mg/dL <=150 [facility] Urea nitrogen [Mass/Vol] 20.0 mg/dL High 7.0-18.0 [facility] Urea nitrogen/Creatinine [Mass ratio] 18.0 mg/mg [facility] Laboratory - Hematology and Cell countson 05-12-2024 HbA1c (Bld) [Mass fraction] 6.9 % High 4.5-6.2 [facility] Comment on above: ADA RECOMMENDED LIMI T 4.0 - 6.0ADA THERAPEUTIC TARGET < 7.0ACTION SUGGESTED> 7.0 Immature granulocytes/100 WBC (Bld) 0.4 % 0.0-0.5 [facility] Leukocytes [#/volume] correc aime for nucleated erythrocytes in Blood by Automated counon 05-12-2024 WBC corrected for nucl RBC Auto (Bld) [#/Vol] Leukocytes [#/volume] corrected for nucleated erythrocytes in Blood by Automated coun 4.0-11.0 [facility] Lymphocytes Auto (Bld) [#/Vo l]on 05-12-2024 Lymphocytes (Bld) [#/Vol] Lymphocytes [#/volume] in Blood by Automated count Low 1.2-3.8 [facility] Lymphocytes/100 WBC Auto (Bl d)on 05-12-2024 Lymphocytes/100 WBC (Bld) Lymphocytes/100 leukocytes in Blood by Automated count 20.5-60.0 [facility] MCH Auto (RBC) [Entitic mass ]on 05-12-2024 MCH (RBC) [Entitic mass] MCH [Entitic mass] by Automated count 25.9-34.0 [facility] MCHC Auto (RBC) [Mass/Vol]on 05-12-2024 MCHC (RBC) [Mass/Vol] MCHC [Mass/volume] by Automated count 29.9-35.2 [facility] MCV Auto (RBC) [Entitic vol] on 05-12-2024 MCV (RBC) [Entitic vol] MCV [Entitic vol ume] by Automated count High 80.0-94.0 [facility] Microalbumin [Mass/volume] i n Urineon 05-12-2024 Albumin DL <= 20 mg/L (U) [Mass/Vol] Microalbumin [Mass/volume] in Urine <=30.0 [facility] Monocytes Auto (Bld) [#/Vol] on 05-12-2024 Monocytes (Bld) [#/Vol] Automated blood monocyte count 0.3-0.8 [facility] Monocytes/100 WBC Auto (Bld) on 05-12-2024 Monocytes/100 WBC (Bld) Automated monocyte % 1. 7-12.0 [facility] Neutrophils Auto (Bld) [#/Vo l]on 05-12-2024 Neutrophils (Bld) [#/Vol] Neutrophils [#/volume] in Blood by Automated count 1.4-6.5 [facility] Neutrophils/100 WBC Auto (Bl d)on 05-12-2024 Neutrophils/100 WBC (Bld) Automated neutrophil % 43.0-75.0 [facility] No Panel Informationon 05-12 Eosinophils # (Auto) 0.2 10 3/uL 0.0-0.7 [facility] Immature Granulocyte # (Auto) 0.02 10 3/uL 0.00-0.03 [facility] Platelet mean volume Auto (B ld) [Entitic vol]on 05-12-2024 Platelet mean volume (Bld) [Entitic vol] Platelet mean volume [Entitic volume] in Blood by Automated count 9.5-13.5 [facility] Platelets Auto (Bld) [#/Vol] on 05-12-2024 Platelets (Bld) [#/Vol] Platelets [#/vol ume] in Blood by Automated count 150-450 [facility] RBC Auto (Bld) [#/Vol]on RBC (Bld) [#/Vol] Erythrocytes [#/volume] in Blood by Automated count Low 4.70-6.10 [facility] Serum or plasma albumin/glob ulin mass ratioon 05-12-2024 Albumin/Globulin [Mass ratio] Serum or plasma albumin/globulin mass ratio [facility] Serum or plasma anion gap de terminationon 05-12-2024 Anion gap [Moles/Vol] Serum or plasma an ion gap determination [facility] Serum or plasma total choles terol/high density lipoprotein (HDL) cholesterol mass julieta 05-12-2024 Cholesterol.total/Nicolle sterol in HDL [Mass ratio] Serum or plasma total cholesterol/high density lipoprotein (HDL) cholesterol mass rat [facility] Comment on above: 3.3 - 4.4 LOW RISK4. 4 - 7.1 AVERAGE RISK7.1 - 11.0 MODERATE RISK>11.0 HIGH RISK XR shoulder BI min 2Von 11-2 XR shoulder BI min 2V [facility] [address] [place] [address] XRay Report Signed Patient: Lele Gaspar MR#: [id number] : 1945 Acct:[id number] Age/Sex: 78 / M ADM Date: 05/11/24 Loc: [facility] Room: Type: [facility] Attending Dr: David Real DO Copies to: [...] Anupam Murguia M.D.05/11/2024 12:59 PM Dictation Location: [place] [address] Transcribed By: [facility] 05/11/24 1259 Dictated By: Anupam Murguia DO 05/11/24 1256 Signed By: 05/11/24 1259 Normal [facility] No Panel Informationon 10-31 Prostate Specific Antigen Screen 3.74 ng/mL <=4.00 [facility] CBC AUTO DIFFon 08-10-2022 BASO # 0.1 103/ul Normal 0.0-0.1 [facility] Comment on above: Performed By: #### C BC #### [facility] [address] [place] [address] Dr. Monique Sewell Basophils/100 WBC (Bld) 1.3 % Normal 0.2-2.0 [facility] Comment on above: Performed By: #### C BC #### [facility] [address] [place] [address] Dr. Monique Sewell EO # 0.2 103/ul Normal 0.0-0.7 [facility] Comment on above: Performed By: #### C BC #### [facility] [address] [place] [address] Dr. Monique Sewell Eosinophils/100 WBC (Bld) 4.8 % Normal 0.9-7.0 [facility] Comment on above: Performed By: #### C BC #### [facility] [address] [place] [address] Dr. Monique Sewell Erythrocyte distribution width (RBC) [Ratio] 12.1 % Normal 11.0-15.0 [facility] Comment on above: Performed By: #### C BC #### [facility] [address] [place] [address] Dr. Monique Sewell Hematocrit (Bld) [Volume fraction] 40.8 % Critically low 42.0-54.0 [facility] Comment on above: Performed By: #### C BC #### [facility] [address] [place] [address] Dr. Monique Sewell Hemoglobin (Bld) [Mass/Vol] 13.9 g/dL Critically low 14.0-18.0 [facility] Comment on above: Performed By: #### C BC #### [facility] [address] [place] [address] Dr. Monique Sewell IG # 0.01 10e3/ul Normal 0.00-0.03 [facility] Comment on above: Performed By: #### C BC #### [facility] [address] [place] [address] Dr. Monique Sewell IG % 0.3 % Normal 0.0-0.5 [facility] Comment on above: Performed By: #### C BC #### [facility] [address] [place] [address] [address] Monique Sewell LYMPH # 1.1 103/ul Critically low 1.2-3.8 [facility] Comment on above: Performed By: #### C BC #### [facility] [address] [place] [address] [address] Monique Sewell Lymphocytes/100 WBC (Bld) 26.9 % Normal 20.5-60.0 [facility] Comment on above: Performed By: #### C BC #### [facility] [address] [place] [address] [address] Monique Sewell MANUAL DIFF REQ NO Normal [facility] Comment on above: Performed By: #### C BC #### [facility] [address] [place] [address] Dr. Monique Sewell MCH (RBC) [Entitic mass] 33.9 pg Normal 25.9-34.0 [facility] Comment on above: Performed By: #### C BC #### [facility] [address] [place] [address] Dr. Monique Sewell MCHC (RBC) [Mass/Vol] 34.1 g/dL Normal 29.9-35.2 [facility] Comment on above: Performed By: #### C BC #### [facility] [address] [place] [address] Dr. Monique Sewell MCV (RBC) [Entitic vol] 99.5 fL Critically high 80.0-94 .0 [facility] Comment on above: Performed By: #### C BC #### [facility] [address] [place] [address] Dr. Monique Sewell MONO # 0.4 103/ul Normal 0.3-0.8 [facility] Comment on above: Performed By: #### C BC #### [facility] [address] [place] [address] Dr. Monique Sewell Monocytes/100 WBC (Bld) 10.1 % Normal 1.7-12.0 [facility] Comment on above: Performed By: #### C BC #### [facility] [address] [place] [address] [address] Monique Sewell NEUT # 2.3 103/ul Normal 1.4-6.5 [facility] Comment on above: Performed By: #### C BC #### [facility] [address] [place] [address] [address] Monique Sewell Neutrophils/100 WBC (Bld) 56.6 % Normal 43.0-75.0 [facility] Comment on above: Performed By: #### C BC #### [facility] [address] [place] [address] [address] Monique Sewell Platelet mean volume (Bld) [Entitic vol] 10.5 fL Normal 9.5-13.5 [facility] Comment on above: Performed By: #### C BC #### [facility] [address] [place] [address] [address] Monique Sewell PLT 170 103/ul Normal 150-450 [facility] Comment on above: Performed By: #### C BC #### [facility] [address] [place] [address] [address] Monique Sewell RBC 4.10 106/ul Critically low 4.70-6.10 [facility] Comment on above: Performed By: #### C BC #### [facility] [address] [place] [address] [address] Monique Sewell WBC 4.0 103/ul Normal 4.0-11.0 [facility] Comment on above: Performed By: #### C BC #### [facility] [address] [place] [address] [address] Monique Sewell GLYCOHEMOGLOBIN A1Con 2022 ADA RECOMMENDATION SEE BELOW Normal [facility] Comment on above: Result Comment: ADA RECOMMENDED LIMIT 4.0 - 6.0 ADA THERAPEUTIC TARGET < 7.0 ACTION SUGGESTED > 7.0 Performed By: #### A 1C #### [facility] [address] [place] [address] Dr. Monique Sewell Glucose [Mass/Vol] 143 mg/dL Normal [facility] Comment on above: Performed By: #### A 1C #### [facility] [address] [place] [address] Dr. Monique Sewell HbA1c (Bld) [Mass fraction] 6.6 % Critically high 4.5-6.2 [facility] Comment on above: Performed By: #### A 1C #### [facility] [address] [place] [address] Dr. Monique Sewell PROF 14(COMP METB)on 023 Albumin [Mass/Vol] 4.2 g/dL Normal 3.4-5.0 [facility] Comment on above: Performed By: #### C MP #### [facility] [address] [place] [address] Dr. Monique Sewell Albumin/Globulin [Mass ratio] 1.7 {ratio} Normal [facility] Comment on above: Performed By: #### C MP #### [facility] [address] [place] [address] Dr. Monique Sewell ALP [Catalytic activity/Vol] 87 U/L Normal 46-116 [facility] Comment on above: Performed By: #### C MP #### [facility] [address] [place] [address] Dr. Monique Sewell ALT [Catalytic activity/Vol] 23 U/L Normal 16-63 [facility] Comment on above: Performed By: #### C MP #### [facility] [address] [place] [address] Dr. Monique Sewell Anion gap [Moles/Vol] 10.9 mmol/L Normal [facility] Comment on above: Performed By: #### C MP #### [facility] [address] [place] [address] Dr. Monique Sewell AST [Catalytic activity/Vol] 18 U/L Normal 15-37 [facility] Comment on above: Performed By: #### C MP #### [facility] [address] [place] [address] Dr. Monique Sewell Bilirubin [Mass/Vol] 0.5 mg/dL Normal 0.2-1.0 [facility] Comment on above: Performed By: #### C MP #### [facility] [address] [address] [address] Monique Sewell Calcium [Mass/Vol] 9.3 mg/dL Normal 8.5-10.1 [facility] Comment on above: Performed By: #### C MP #### [facility] [address] [address] [address] Monique Sewell Chloride [Moles/Vol] 104 mmol/L Normal 98-107 [facility] Comment on above: Performed By: #### C MP #### [facility] [address] [address] [address] Monique Sewell CO2 [Moles/Vol] 29.3 mmol/L Normal 21.0-32.0 [facility] Comment on above: Performed By: #### C MP #### [facility] [address] [place] [address] Dr. Monique Sewell Creatinine [Mass/Vol] 0.91 mg/dL Normal 0.70-1.30 [facility] Comment on above: Performed By: #### C MP #### [facility] [address] [address] [address] Monique Sewell EGFR-AF PUERTO RICAN >60 Normal >=60 [facility] Comment on above: Performed By: #### C MP #### [facility] [address] [place] [address] Dr. Monique Sewell EGFR-NON AF PUERTO RICAN >60 Normal >=60 [facility] Comment on above: Performed By: #### C MP #### [facility] [address] [address] [address] Monique Sewell Globulin (S) [Mass/Vol] 2.4 g/dL Normal [facility] Comment on above: Performed By: #### C MP #### [facility] [address] [place] [address] Dr. Monique Sewell Glucose [Mass/Vol] 146 mg/dL Critically high 74-106 [facility] Comment on above: Performed By: #### C MP #### [facility] [address] [address] [address] Monique Sewell Potassium [Moles/Vol] 4.2 mmol/L Normal 3.5-5.1 [facility] Comment on above: Performed By: #### C MP #### [facility] [address] [place] [address] Dr. Monique Sewell Protein [Mass/Vol] 6.6 g/dL Normal 6.4-8.2 [facility] Comment on above: Performed By: #### C MP #### [facility] [address] [place] [address] Dr. Monique Sewell Sodium [Moles/Vol] 140 mmol/L Normal 136-145 [facility] Comment on above: Performed By: #### C MP #### [facility] [address] [place] [address] Dr. Monique Sewell Urea nitrogen [Mass/Vol] 20.0 mg/dL Critically high 7.0-18.0 [facility] Comment on above: Performed By: #### C MP #### [facility] [address] [place] [address] Dr. Monique Sewell Urea nitrogen/Creatinine [Mass ratio] 22.0 mg/mg Normal [facility] Comment on above: Performed By: #### C MP #### [facility] [address] [place] [address] Dr. Monique Sewell CBC AUTO DIFFon 04-02-2022 BASO # 0.0 103/ul Normal 0.0-0.1 [facility] Comment on above: Performed By: #### C BC #### [facility] [address] [place] [address] Dr. Monique Sewell Basophils/100 WBC (Bld) 0.8 % Normal 0.2-2.0 [facility] Comment on above: Performed By: #### C BC #### [facility] [address] [place] [address] Dr. Monique Sewell EO # 0.4 103/ul Normal 0.0-0.7 [facility] Comment on above: Performed By: #### C BC #### [facility] [address] [place] [address] Dr. Monique Sewell Eosinophils/100 WBC (Bld) 8.8 % Critically high 0.9-7.0 [facility] Comment on above: Performed By: #### C BC #### [facility] [address] [place] [address] Dr. Monique Sewell Erythrocyte distribution width (RBC) [Ratio] 12.3 % Normal 11.0-15.0 [facility] Comment on above: Performed By: #### C BC #### [facility] [address] [place] [address] Dr. Monique Sewell Hematocrit (Bld) [Volume fraction] 41.2 % Critically low 42.0-54.0 [facility] Comment on above: Performed By: #### C BC #### [facility] [address] [place] [address] Dr. Monique Sewell Hemoglobin (Bld) [Mass/Vol] 13.5 g/dL Critically low 14.0-18.0 [facility] Comment on above: Performed By: #### C BC #### [facility] [address] [place] [address] Dr. Monique Sewell IG # 0.02 10e3/ul Normal 0.00-0.03 [facility] Comment on above: Performed By: #### C BC #### [facility] [address] [place] [address] Dr. Monique Sewell IG % 0.4 % Normal 0.0-0.5 [facility] Comment on above: Performed By: #### C BC #### [facility] [address] [place] [address] Dr. Monique Sewell LYMPH # 1.3 103/ul Normal 1.2-3.8 [facility] Comment on above: Performed By: #### C BC #### [facility] [address] [place] [address] Dr. Monique Sewell Lymphocytes/100 WBC (Bld) 25.8 % Normal 20.5-60.0 [facility] Comment on above: Performed By: #### C BC #### [facility] [address] [place] [address] Dr. Monique Sewell MANUAL DIFF REQ NO Normal [facility] Comment on above: Performed By: #### C BC #### [facility] [address] [place] [address] Dr. Monique Sewell MCH (RBC) [Entitic mass] 33.5 pg Normal 25.9-34.0 [facility] Comment on above: Performed By: #### C BC #### [facility] [address] [place] [address] Dr. Monique Sewell MCHC (RBC) [Mass/Vol] 32.8 g/dL Normal 29.9-35.2 [facility] Comment on above: Performed By: #### C BC #### [facility] [address] [place] [address] Dr. Monique Sewell MCV (RBC) [Entitic vol] 102.2 fL Critically high 80.0-94 .0 [facility] Comment on above: Performed By: #### C BC #### [facility] [address] [place] [address] Dr. Monique Sewell MONO # 0.5 103/ul Normal 0.3-0.8 [facility] Comment on above: Performed By: #### C BC #### [facility] [address] [place] [address] Dr. Monique Sewell Monocytes/100 WBC (Bld) 9.2 % Normal 1.7-12.0 [facility] Comment on above: Performed By: #### C BC #### [facility] [address] [place] [address] Dr. Monique Sewell NEUT # 2.7 103/ul Normal 1.4-6.5 [facility] Comment on above: Performed By: #### C BC #### [facility] [address] [place] [address] Dr. Monique Sewell Neutrophils/100 WBC (Bld) 55.0 % Normal 43.0-75.0 [facility] Comment on above: Performed By: #### C BC #### [facility] [address] [place] [address] Dr. Monique Sewell Platelet mean volume (Bld) [Entitic vol] 10.3 fL Normal 9.5-13.5 [facility] Comment on above: Performed By: #### C BC #### [facility] [address] [place] [address] Dr. Monique Sewell PLT 191 103/ul Normal 150-450 [facility] Comment on above: Performed By: #### C BC #### [facility] [address] [address] [address] Monique Sewell RBC 4.03 106/ul Critically low 4.70-6.10 [facility] Comment on above: Performed By: #### C BC #### [facility] [address] [place] [address] Dr. Monique Sewell WBC 4.9 103/ul Normal 4.0-11.0 [facility] Comment on above: Performed By: #### C BC #### [facility] [address] [place] [address] Dr. Monique Sewell GLYCOHEMOGLOBIN A1Con 2021 ADA RECOMMENDATION SEE BELOW Normal [facility] Comment on above: Result Comment: ADA RECOMMENDED LIMIT 4.0 - 6.0 ADA THERAPEUTIC TARGET < 7.0 ACTION SUGGESTED > 7.0 Performed By: #### A 1C #### [facility] [address] [place] [address] Dr. Monique Sewell Glucose [Mass/Vol] 148 mg/dL Normal [facility] Comment on above: Performed By: #### A 1C #### [facility] [address] [place] [address] Dr. Monique Sewell HbA1c (Bld) [Mass fraction] 6.8 % Critically high 4.5-6.2 [facility] Comment on above: Performed By: #### A 1C #### [facility] [address] [place] [address] Dr. Monique Sewell LIPID PROFILEon 04-02-2022 CHOL-HDL RATIO NORM SEE BELOW Normal [facility] Comment on above: Result Comment: 3.3 - 4.4 LOW RISK 4.4 - 7.1 AVERAGE RISK 7.1 - 11.0 MODERATE RISK >11.0 HIGH RISK Performed By: #### L IPID, CMP #### [facility] [address] [address] [address] Monique Sewell Cholesterol [Mass/Vol] 135 mg/dL Normal <=200 [facility] Comment on above: Performed By: #### L IPID, CMP #### [facility] [address] [address] [address] Monique Sewell Cholesterol in HDL [Mass/Vol] 79 mg/dL Critically high 40-60 [facility] Comment on above: Performed By: #### L IPID, CMP #### [facility] [address] [address] [address] Monique Sewell Cholesterol in LDL [Mass/Vol] 44.4 mg/dL Normal [facility] Comment on above: Performed By: #### L IPID, CMP #### [facility] [address] [place] [address] Dr. Monique Sewell Cholesterol.total/Nicolle sterol in HDL [Mass ratio] 1.7 {ratio} Normal [facility] Comment on above: Performed By: #### L IPID, CMP #### [facility] [address] [address] [address] Monique Sewell HDL NORMAL > or = 60 mg/dl - LO W CARDIOVASCULAR RISK <40 mg/dl - HIGH CARDIOVASCULAR RISK Normal [facility] Comment on above: Performed By: #### L IPID, CMP #### [facility] [address] [address] [address] Monique Sewell LDL CALC NORMAL SEE BELOW Normal [facility] Comment on above: Result Comment: <100 mg/dl OPTIMAL 100 - 129 mg/dl NEAR OR ABOVE OPTIMAL 130 - 159 mg/dl BORDERLINE HIGH 160 - 189 mg/dl HIGH >190 mg/dl VERY HIGH Performed By: #### L IPID, CMP #### [facility] [address] [address] [address] Monique Sewell Triglyceride [Mass/Vol] 58 mg/dL Normal <=150 T [facility] Comment on above: Performed By: #### L IPID, CMP #### [facility] [address] [address] [address] Monique Sewell VLDL CALC 11.6 mg/dL Normal [facility] Comment on above: Performed By: #### L IPID, CMP #### [facility] [address] [address] [address] Monique Sewell PROF 14(COMP METB)on 022 Albumin [Mass/Vol] 4.1 g/dL Normal 3.4-5.0 [facility] Comment on above: Performed By: #### L IPID, CMP #### [facility] [address] [place] [address] Dr. Monique Sewell Albumin/Globulin [Mass ratio] 1.7 {ratio} Normal [facility] Comment on above: Performed By: #### L IPID, CMP #### [facility] [address] [place] [address] Dr. Monique Sewell ALP [Catalytic activity/Vol] 84 U/L Normal 46-116 [facility] Comment on above: Performed By: #### L IPID, CMP #### [facility] [address] [place] [address] Dr. Monique Sewell ALT [Catalytic activity/Vol] 28 U/L Normal 16-63 [facility] Comment on above: Performed By: #### L IPID, CMP #### [facility] [address] [place] [address] Dr. Monique Sewell Anion gap [Moles/Vol] 10.8 mmol/L Normal [facility] Comment on above: Performed By: #### L IPID, CMP #### [facility] [address] [place] [address] Dr. Monique Sewell AST [Catalytic activity/Vol] 14 U/L Critically low 15-37 [facility] Comment on above: Performed By: #### L IPID, CMP #### [facility] [address] [place] [address] Dr. Monique Sewell Bilirubin [Mass/Vol] 0.4 mg/dL Normal 0.2-1.0 [facility] Comment on above: Performed By: #### L IPID, CMP #### [facility] [address] [address] [address] Monique Sewell Calcium [Mass/Vol] 9.2 mg/dL Normal 8.5-10.1 [facility] Comment on above: Performed By: #### L IPID, CMP #### [facility] [address] [address] [address] Monique Sewell Chloride [Moles/Vol] 105 mmol/L Normal 98-107 [facility] Comment on above: Performed By: #### L IPID, CMP #### [facility] [address] [place] [address] Dr. Monique Sewell CO2 [Moles/Vol] 28.3 mmol/L Normal 21.0-32.0 [facility] Comment on above: Performed By: #### L IPID, CMP #### [facility] [address] [place] [address] Dr. Monique Sewell Creatinine [Mass/Vol] 0.92 mg/dL Normal 0.70-1.30 [facility] Comment on above: Performed By: #### L IPID, CMP #### [facility] [address] [place] [address] Dr. Monique Sewell EGFR-AF PUERTO RICAN >60 Normal >=60 [facility] Comment on above: Performed By: #### L IPID, CMP #### [facility] [address] [place] [address] Dr. Monique Sewell EGFR-NON AF PUERTO RICAN >60 Normal >=60 [facility] Comment on above: Performed By: #### L IPID, CMP #### [facility] [address] [place] [address] Dr. Monique Sewell Globulin (S) [Mass/Vol] 2.4 g/dL Normal [facility] Comment on above: Performed By: #### L IPID, CMP #### [facility] [address] [place] [address] Dr. Monique eSwell Glucose [Mass/Vol] 151 mg/dL Critically high 74-106 [facility] Comment on above: Performed By: #### L IPID, CMP #### [facility] [address] [address] [address] Monique Sewell Potassium [Moles/Vol] 4.1 mmol/L Normal 3.5-5.1 [facility] Comment on above: Performed By: #### L IPID, CMP #### [facility] [address] [place] [address] Dr. Monique Sewell Protein [Mass/Vol] 6.5 g/dL Normal 6.4-8.2 [facility] Comment on above: Performed By: #### L IPID, CMP #### [facility] [address] [place] [address] Dr. Monique Sewell Sodium [Moles/Vol] 140 mmol/L Normal 136-145 [facility] Comment on above: Performed By: #### L IPID, CMP #### [facility] [address] [place] [address] Dr. Monique Sewell Urea nitrogen [Mass/Vol] 12.0 mg/dL Normal 7.0-18.0 [facility] Comment on above: Performed By: #### L IPID, CMP #### [facility] [address] [place] [address] Dr. Monique Sewell Urea nitrogen/Creatinine [Mass ratio] 13.0 mg/mg Normal [facility] Comment on above: Performed By: #### L IPID, CMP #### [facility] [address] [place] [address] Dr. Monique Sewell GLYCOHEMOGLOBIN A1Con 2021 ADA RECOMMENDATION SEE BELOW Normal [facility] Comment on above: Result Comment: ADA RECOMMENDED LIMIT 4.0 - 6.0 ADA THERAPEUTIC TARGET < 7.0 ACTION SUGGESTED > 7.0 Performed By: #### D ATA1C #### [facility] [address] [place] [address] Dr. Monique Sewell Glucose [Mass/Vol] 157 mg/dL Normal [facility] Comment on above: Performed By: #### D ATA1C #### [facility] [address] [place] [address] Dr. Monique Sewell HbA1c (Bld) [Mass fraction] 7.1 % Critically high 4.5-6.2 [facility] Comment on above: Performed By: #### D ATA1C #### [facility] [address] [address] [address] Monique Sewell Venous, Unilat, Lower Ext [place] 07-11-2021 [place] [...] by Thom Mendez on 07/11/2021 1239 Normal [facility] Line Maintenance Vital Signs Date Time Vital Sign Value Performing Clinician Facility 07-19-2024 12:40-0500 Diastolic blood pressure 68 mm[Hg] Kwame Rod MD Work Phone: [facility] 07-19-2024 12:40-0500 Heart rate 83 /min Kwame Rod MD Work Phone: [facility] 07-19-2024 12:40-0500 Respiratory rate 16 /min Kwame Rod MD Work Phone: [facility] 07-19-2024 12:40-0500 SaO2% (BldA) [Mass fraction] 93 % Kwame Rod MD Work Phone: [facility] 07-19-2024 12:40-0500 Systolic blood pressure 139 mm[Hg] Kwame Rod MD Work Phone: [facility] 07-19-2024 11:35-0500 Body temperature 97.5 [degF] Kwame Rod MD Work Phone: [facility] 07-19-2024 11:05-0500 Inhaled oxygen flow rate 8 L/min Kwame Rod MD Work Phone: [facility] 07-19-2024 06:06-0500 Body height 177.8 cm Kwame Rod MD Work Phone: [facility] 07-19-2024 06:06-0500 Body weight 113.39 kg Kwame Rod MD Work Phone: [facility] 07-18-2024 09:36-0500 Body height 177.8 cm Kwame Rod MD Work Phone: [facility] 07-18-2024 09:36-0500 Body mass index (BMI) [Ratio] 36.3 kg/m2 Kwame Rod MD Work Phone: [facility] 07-18-2024 09:36-0500 Body weight 114.75 kg Kwame Rod MD Work Phone: [facility] 07-14-2024 09:57-0500 Body height 177.8 cm Kwame Rod MD Work Phone: [facility] 07-14-2024 09:57-0500 Body mass index (BMI) [Ratio] 36.3 kg/m2 Kwame Rod MD Work Phone: [facility] 07-14-2024 09:57-0500 Body weight 114.75 kg Kwame Rod MD Work Phone: [facility] 07-14-2024 09:57-0500 Diastolic blood pressure 74 mm[Hg] Kwame Rod MD Work Phone: [facility] 07-14-2024 09:57-0500 Heart rate 73 /min Kwame Rod MD Work Phone: [facility] 07-14-2024 09:57-0500 SaO2% (BldA) [Mass fraction] 96 % Kwame Rod MD Work Phone: [facility] 07-14-2024 09:57-0500 Systolic blood pressure 124 mm[Hg] Kwame Rod MD Work Phone: [facility] 06-22-2024 09:37-0500 Body height 177.8 cm Kwame Rod MD Work Phone: [facility] 06-22-2024 09:37-0500 Body temperature 98.2 [degF] Kwame Rod MD Work Phone: [facility] 06-22-2024 09:37-0500 Body weight 116 kg Kwame Rod MD Work Phone: [facility] 06-22-2024 09:37-0500 Diastolic blood pressure 81 mm[Hg] Kwame Rod MD Work Phone: [facility] 06-22-2024 09:37-0500 Heart rate 88 /min Kwame Rod MD Work Phone: [facility] 06-22-2024 09:37-0500 Respiratory rate 20 /min Kwame Rod MD Work Phone: [facility] 06-22-2024 09:37-0500 SaO2% (BldA) [Mass fraction] 97 % Kwame Rod MD Work Phone: [facility] 06-22-2024 09:37-0500 Systolic blood pressure 157 mm[Hg] Kwame Rod MD Work Phone: [facility] 06-08-2024 14:13-0500 Body height 175.26 cm Kwame Rod MD Work Phone: [facility] 06-08-2024 14:13-0500 Body mass index (BMI) [Ratio] 37.9 kg/m2 Kwame Rod MD Work Phone: [facility] 06-08-2024 14:13-0500 Body weight 116.57 kg Kwame Rod MD Work Phone: [facility] 06-08-2024 14:13-0500 Diastolic blood pressure 76 mm[Hg] Kwame Rod MD Work Phone: [facility] 06-08-2024 14:13-0500 Heart rate 72 /min Kwame Rod MD Work Phone: [facility] 06-08-2024 14:13-0500 Systolic blood pressure 156 mm[Hg] Kwame Rod MD Work Phone: [facility] 05-08-2024 11:16-0500 Body height 175.26 cm [facility] 05-08-2024 11:16-0500 Body mass index (BMI) [Ratio] 38.2 kg/m2 [facility] 05-08-2024 11:16-0500 Body weight 117.48 kg [facility] 05-08-2024 11:16-0500 Diastolic blood pressure 79 mm[Hg] [facility] 05-08-2024 11:16-0500 Heart rate 63 /min [facility] 05-08-2024 11:16-0500 Systolic blood pressure 157 mm[Hg] [facility] 04-25-2024 09:10-0500 Body height 177.8 cm Ladonna Solitario MD Work Phone: [facility] 04-25-2024 09:10-0500 Body mass index (BMI) [Ratio] 36.88 kg/m2 Ladonna Solitario MD Work Phone: [facility] 04-25-2024 09:10-0500 Body weight 116.57 kg Ladonna Solitario MD Work Phone: [facility] 04-25-2024 09:10-0500 Diastolic blood pressure 60 mm[Hg] Ladonna Solitario MD Work Phone: [facility] 04-25-2024 09:10-0500 Systolic blood pressure 115 mm[Hg] Ladonna Solitario MD Work Phone: [facility] 01-21-2024 09:44-0400 Blood Pressure Location Ed GARCIA [facility] 01-21-2024 09:44-0400 Diastolic blood pressure 78 mm[Hg] Ed GARCIA [facility] 01-21-2024 09:44-0400 Heart rate 80 /min Ed GARCIA [facility] 01-21-2024 09:44-0400 Respiratory rate 16 /min Ed GARCIA [facility] 01-21-2024 09:44-0400 Systolic blood pressure 132 mm[Hg] Ed GARCIA [facility] 11-23-2023 13:16-0400 Body height 175.26 cm [facility] 11-23-2023 13:16-0400 Body mass index (BMI) [Ratio] 83.7 kg/m2 [facility] 11-23-2023 13:16-0400 Body weight 257 kg [facility] 11-23-2023 13:16-0400 Diastolic blood pressure 65 mm[Hg] [facility] 11-23-2023 13:16-0400 Heart rate 79 /min [facility] 11-23-2023 13:16-0400 Systolic blood pressure 129 mm[Hg] [facility] 11-02-2023 10:02-0400 Body height 175.26 cm [facility] 11-02-2023 10:02-0400 Body mass index (BMI) [Ratio] 38.1 kg/m2 [facility] 11-02-2023 10:02-0400 Body temperature 97.3 [degF] [facility] 11-02-2023 10:02-0400 Body weight 117.19 kg [facility] 11-02-2023 10:02-0400 Diastolic blood pressure 73 mm[Hg] [facility] 11-02-2023 10:02-0400 Heart rate 69 /min [facility] 11-02-2023 10:02-0400 Respiratory rate 18 /min [facility] 11-02-2023 10:02-0400 SaO2% (BldA) [Mass fraction] 97 % [facility] 11-02-2023 10:02-0400 Systolic blood pressure 142 mm[Hg] [facility] 04-28-2023 11:30-0500 Body height 175.26 cm Kwame Rod Other [facility] Other 04-28-2023 11:30-0500 Body mass index (BMI) [Ratio] 37.51 kg/m2 Kwame Rod Other [facility] Other 04-28-2023 11:30-0500 Body weight 115.21 kg Kwame Rod Other [facility] Other 04-28-2023 11:30-0500 Diastolic blood pressure 67 mm[Hg] Kwame Rod Other [facility] Other 04-28-2023 11:30-0500 Systolic blood pressure 164 mm[Hg] Kwame Rod Other [facility] Other Encounters Encounter Date Encounter Type Care Provider Facility Start: 09-25-2024 ambulatory Ed Pruitt ty:JOEY Lima Start: 09-14-2024 End: 09-14-2024 Bamboo flowsheet Yoli Wylie ELECTRIC MOTOR REPAIRER [facility] Start: 09-14-2024 End: 09-14-2024 Bamboo flowsheet Yoli Wylie ELECTRIC MOTOR REPAIRER [facility] Start: 09-14-2024 End: 09-14-2024 ambulatory Yoli Garcianancie ELECTRIC MOTOR REPAIRER [facility] Comment on above: Acute postoperative pain of left shoulder (Primary Dx); Status post reverse total shoulder replacement, left Start: 09-12-2024 End: 09-12-2024 ambulatory DARCY WEINBERG Not Available Start: 09-07-2024 End: 09-07-2024 ambulatory Yoli Garcianancie ELECTRIC MOTOR REPAIRER [facility] Comment on above: Acute postoperative pain of left shoulder (Primary Dx); Status post reverse total shoulder replacement, left Start: 08-31-2024 End: 08-31-2024 Bamboo flowscedrick Weinberg ELECTRIC MOTOR REPAIRER Work Phone: [facility] Start: 08-31-2024 End: 08-31-2024 Bamboo flowsheet Darcy Weinberg ELECTRIC MOTOR REPAIRER Work Phone: [facility] Start: 08-31-2024 End: 08-31-2024 ambulatory Darcy Weinberg ELECTRIC MOTOR REPAIRER Work Phone: [facility] Comment on above: Acute postoperative pain of left shoulder (Primary Dx); Status post reverse total shoulder replacement, left Start: 08-29-2024 End: 08-29-2024 Bamboo flowsheet Darcy Weinberg ELECTRIC MOTOR REPAIRER Work Phone: [facility] Start: 08-29-2024 End: 08-29-2024 Bamboo tiara Weinberg ELECTRIC MOTOR REPAIRER Work Phone: [facility] Start: 08-29-2024 End: 08-29-2024 ambulatory Darcy Weinberg ELECTRIC MOTOR REPAIRER Work Phone: [facility] Comment on above: Acute postoperative pain of left shoulder (Primary Dx); Status post reverse total shoulder replacement, left Start: 08-24-2024 End: 08-24-2024 Bamboo flowsheet Sammie J Trev PT Work Phone: [facility] Start: 08-24-2024 End: 08-24-2024 Bamboo flowsheet Sammie J Trev PT Work Phone: [facility] Start: 08-24-2024 End: 08-24-2024 ambulatory Sammie J Trev PT Work Phone: [facility] Comment on above: Acute postoperative pain of left shoulder (Primary Dx); Status post reverse total shoulder replacement, left Start: 08-22-2024 End: 08-22-2024 ambulatory Yoli Wylie ELECTRIC MOTOR REPAIRER [facility] Comment on above: Acute postoperative pain of left shoulder (Primary Dx); Status post reverse total shoulder replacement, left Start: 08-22-2024 End: 08-22-2024 Bamboo flowsheet Yoli Wylie ELECTRIC MOTOR REPAIRER [facility] Start: 08-22-2024 End: 08-22-2024 Bamboo flowsheet Yoli Wylie ELECTRIC MOTOR REPAIRER [facility] Start: 08-17-2024 End: 08-17-2024 ambulatory Yoli Wylie ELECTRIC MOTOR REPAIRER [facility] Comment on above: Acute postoperative pain of left shoulder (Primary Dx); Status post reverse total shoulder replacement, left Start: 08-17-2024 End: 08-17-2024 Bamboo flowsheet Yoli Wylie ELECTRIC MOTOR REPAIRER [facility] Start: 08-17-2024 End: 08-17-2024 Bamboo flowsheet Yoli Wylie ELECTRIC MOTOR REPAIRER [facility] Start: 08-11-2024 End: 08-11-2024 Bamboo flowsheet Sammie J Trev PT Work Phone: [facility] Start: 08-11-2024 End: 08-11-2024 Bamboo flowsheet Sammie J Trev PT Work Phone: [facility] Start: 08-11-2024 End: 08-11-2024 ambulatory Sammie Cruzgs PT Work Phone: [facility] Comment on above: Acute postoperative pain of left shoulder (Primary Dx); Status post reverse total shoulder replacement, left Start: 08-07-2024 End: 08-07-2024 ambulatory Kwame Rod MD Work Phone: [facility] Work Phone: Start: 08-07-2024 End: 08-07-2024 Patient encounter procedure Kwame Rod MD Work Phone: [facility] Work Phone: Start: 08-07-2024 End: 08-07-2024 Patient encounter procedure Kwame Rod MD Work Phone: [facility] Start: 08-07-2024 End: 08-07-2024 ambulatory Kwame Rod MD Work Phone: [facility] Work Phone: Start: 07-24-2024 End: 07-24-2024 ambulatory Ededuard GARCIA Facility:[facility] Start: 07-24-2024 End: 07-24-2024 Patient encounter procedure Ed GARCIA [facility] Start: 07-19-2024 Non-patient / Non-visit Kwame Rod MD Work Phone: [facility] Work Phone: Start: 07-19-2024 End: 07-19-2024 Admission to same day surgery center Kwame Rod MD Work Phone: [facility] [place] Start: 07-19-2024 End: 07-19-2024 ambulatory Kwame Rod MD Work Phone: [facility] Work Phone: Start: 07-18-2024 End: 07-18-2024 ambulatory Kwame Rod MD Work Phone: [facility] Work Phone: Start: 07-18-2024 End: 07-18-2024 Patient encounter procedure Kwame Rod MD Work Phone: [facility] Work Phone: Start: 07-17-2024 Preoperative state Kwame jansen MD Work Phone: [facility] Start: 07-14-2024 End: 07-14-2024 ambulatory Kwame Rod MD Work Phone: [facility] Work Phone: Start: 07-14-2024 End: 07-14-2024 Encounter for other preprocedural examination Kwame Rod MD Work Phone: [facility] Start: 07-14-2024 End: 07-14-2024 Patient encounter procedure Kwame Rod MD Work Phone: [facility] Work Phone: Start: 07-05-2024 End: 07-05-2024 ambulatory Kwame Rod MD Work Phone: [facility] Work Phone: Start: 07-05-2024 End: 07-05-2024 Departed Referred Kwame Rod MD Work Phone: [facility] [place] Start: 06-22-2024 End: 06-22-2024 Patient encounter procedure Kwame Rod MD Work Phone: [facility] Work Phone: Start: 06-22-2024 End: 06-22-2024 ambulatory Kwame Rod MD Work Phone: [facility] Work Phone: Start: 06-22-2024 Encounter for preprocedural laboratory examination David Real [facility] Start: 06-08-2024 End: 06-08-2024 Patient encounter procedure Kwame Rod MD Work Phone: [facility] Work Phone: Start: 05-12-2024 End: 05-12-2024 Patient encounter procedure Kwame Rod MD Work Phone: [facility] [place] Work Phone: Start: 05-12-2024 End: 05-12-2024 ambulatory David Real Facility:[facility] Start: 05-12-2024 Non-patient / Non-visit Kwame Rod MD Work Phone: [facility] Work Phone: Start: 05-11-2024 End: 05-11-2024 Patient encounter procedure Kwame Rod MD Work Phone: [facility] Work Phone: Start: 05-11-2024 End: 05-11-2024 ambulatory Kwame Rod MD Work Phone: [facility] Work Phone: Start: 05-08-2024 End: 05-08-2024 ambulatory [facility] Work Phone: Start: 05-08-2024 End: 05-08-2024 Patient encounter procedure [facility] Work Phone: Start: 04-25-2024 End: 04-25-2024 Bamboo flowscedrick Solitario MD Work Phone: [facility] Start: 04-25-2024 End: 04-25-2024 Yumiko Solitario MD Work Phone: [facility] Start: 04-25-2024 End: 04-25-2024 Patient encounter procedure Ladonna Solitario MD Work Phone: [facility] Comment on above: Encounter for mastoi dectomy cavity debridement, right (Primary Dx) Start: 04-25-2024 End: 04-25-2024 ambulatory LADONNA SOLITARIO Not Available Start: 01-21-2024 End: 01-21-2024 ambulatory Ed GARCIA Facility:[facility] [place] Start: 01-21-2024 End: 01-21-2024 Patient encounter procedure Ed GARCIA [facility] Start: 11-24-2023 ambulatory Ed GARCIA Facility :[facility] Start: 11-23-2023 End: 11-23-2023 ambulatory [facility] Work Phone: Start: 11-23-2023 End: 11-23-2023 Patient encounter procedure [facility] Work Phone: Start: 11-02-2023 End: 11-02-2023 Patient encounter procedure [facility] Work Phone: Start: 11-01-2023 Non-patient / Non-visit [facility] [place] Work Phone: Start: 09-06-2023 Non-patient / Non-visit [facility] Work Phone: Start: 07-12-2023 End: 07-12-2023 ambulatory Kwame Rod Other [facility] Other Start: 07-12-2023 Telephone encounter Kwame Rod [facility] Start: 07-07-2023 End: 07-07-2023 ambulatory Kwame Rod Other [facility] Other Start: 07-07-2023 Telephone encounter Kwame Rod [facility] Start: 06-29-2023 End: 06-29-2023 ambulatory Kwame Rod Other [facility] Other Start: 06-29-2023 Telephone encounter Kwame Rod [facility] Start: 05-19-2023 End: 05-19-2023 ambulatory Kwame Rod Other [facility] Other Start: 05-19-2023 Telephone encounter Kwame Rod [facility] Start: 04-28-2023 End: 04-28-2023 ambulatory Kwame Rod Other [facility] Other Start: 04-28-2023 Office outpatient vi sit 25 minutes Kwame Rod [facility] Start: 10-06-2022 End: 10-07-2022 ambulatory NONE LISTED REQUEST Facility:[facility] Start: 08-10-2022 End: 08-11-[address] KWAME ROD Facility:[facility] Start: 04-02-2022 End: 04-03-[address] KWAME ROD Facility:[facility] Start: 10-13-2021 End: 10-14-2021 ambulatory NONE LISTED REQUEST Facility:[facility] Procedures Date Procedure Procedure Detail Performing Clinician Start: 08-07-2024 Plain X-ray of left shoulder wKame Rod MD Work Phone: Start: 07-19-2024 OR Total Shoulder Re verse & Anatomic (Left) Kwame Rod MD Work Phone: Start: 07-19-2024 Plain X-ray of left shoulder Kwame Rod MD Work Phone: Start: 07-19-2024 Plain X-ray of left shoulder Kwame Rod MD Work Phone: Start: 05-12-2024 CT of left shoulder Violet Rod MD Work Phone: Start: 05-11-2024 Plain X-ray of bilat eral shoulders Kwame Rod MD Work Phone: Arthroscopy of knee Ed GARCIA Discectomy of spine Ed GARCIA Mastoidectomy Ed GARCIA Repair of joint of r ight hip Ed GARCIA Tonsillectomy Ed GARCIA Vasectomy Ed GARCIA Plan of Treatment Date Care Activity Detail Author Start: 09-21-2024 End: 09-21-2024 ambulatory 09/21/2024 1:00 PM EDT Treatment [facility] [address] [place] [phone] Darcy Weinberg, ELECTRIC MOTOR REPAIRER [address] [place] [address] [facility] Start: 09-19-2024 End: 09-19-2024 ambulatory 09/19/2024 1:00 PM EDT Treatment [facility] [address] [place] [phone] Darcy Weinberg, ELECTRIC MOTOR REPAIRER [address] [place] [address] [facility] Start: 09-14-2024 End: 09-14-2024 ambulatory [facility] Comment on above: Acute postoperative pain of left shoulder (Primary Dx); Status post reverse total shoulder replacement, left Start: 09-12-2024 End: 09-12-2024 ambulatory 09/12/2024 1:00 PM EDT Treatment [facility] [address] [place] [phone] Darcy Weinberg, ELECTRIC MOTOR REPAIRER [address], [place] [id number] [facility] Start: 09-07-2024 End: 09-07-2024 ambulatory 09/07/2024 1:00 PM EDT Treatment [facility] [address] [place] [phone] Yoli Wylie PTA [facility] Start: 08-31-2024 End: 08-31-2024 ambulatory [facility] Comment on above: Arrived Start: 08-29-2024 End: 08-29-2024 ambulatory [facility] Comment on above: Arrived Start: 08-24-2024 End: 08-24-2024 ambulatory [facility] Comment on above: Arrived Start: 08-22-2024 End: 08-22-2024 ambulatory 08/22/2024 2:30 PM EST Treatment [facility] [address] [place] [phone] Yoli Wylie PTA [facility] Start: 08-17-2024 End: 08-17-2024 ambulatory [facility] Comment on above: Arrived Start: 08-11-2024 End: 08-11-2024 ambulatory 08/11/2024 2:00 PM EST Evaluation [facility] [address] [place] [phone] Sammie Scott, PT [address] [place], [place] [id number] Arrived [facility] Comment on above: Arrived Start: 08-07-2024 Plain X-ray of left shoulder XR shoulder LT min 2V* [facility] Start: 08-07-2024 XR Shoulder - left Views [facility] Start: 07-19-2024 [facility] Start: 07-19-2024 End: 07-19-2024 [facility] Start: 07-19-2024 Plain X-ray of left shoulder XR shoulder LT 1V [facility] Start: 07-19-2024 XR Shoulder - left Single view [facility] Start: 07-19-2024 Hospital admission [facility] Start: 07-19-2024 Referral to occupati onal therapist [facility] Start: 07-19-2024 Plain X-ray of left shoulder XR shoulder LT 1V [facility] Start: 07-19-2024 XR Shoulder - left Single view [facility] Start: 07-05-2024 OR Total Shoulder Reverse & Anatomic (Left) OR Total Shoulder Reverse & Anatomic (Left) [facility] Start: 05-11-2024 Plain X-ray of bilat eral shoulders XR shoulder BI min 2V [facility] Start: 05-11-2024 XR Shoulder - bilate ral Views [facility] Start: 04-25-2024 End: 04-25-2024 Patient encounter procedure 04/25/2024 9:10 AM EST Office Visit [facility] [address] [facility] [address] [place] [phone] Ladonna Solitario MD [address] [facility] [address] [place], [place] [id number] Arrived [facility] Comment on above: Arrived Start: 02-20-2024 Influenza vaccination Influenza Vacc ine (#1) [facility] Start: 11-23-2023 Patient referral [facility] Work Phone: Start: 02-18-2018 Pneumococcal Vaccine : 65+ Years (2 of 2 - PPSV23 or PCV20) Pneumococcal Vaccine: 65+ Years (2 of 2 - PPSV23 or PCV20) [facility] Comprehensive metabo lic 1999 panel - Serum or Plasma [facility] Comprehensive metabo lic 1999 panel - Serum or Plasma [facility] CT Shoulder - left W O contrast [facility] Fibrin D-dimer [Presence] in Platelet poor plasma by Latex agglutination [facility] Microalbumin [Mass/volume] in Urine [facility] Patient Education Know your Meds [facility] Work Phone: Patient referral [facility] Work Phone: [facility] Immunizations Immunization Date Immunization Notes Care Provider Fa cility 11-02-2023 tetanus and diphtheria toxoids, adsorbed, preservative free, for adult use (5 Lf of tetanus toxoid and 2 Lf of diphtheria toxoid) [facility] 05-27-2022 influenza virus vaccine, split virus (incl. purified surface antigen) Kwame Rod Other [facility] Other 05-27-2022 influenza virus vaccine, unspecified formulation [facility] 06-03-2021 COVID-19 mRNA-1273 (Moderna) [facility] 04-05-2021 zoster vaccine recombinant Ladonna Solitario MD Work Phone: [facility] 04-05-2021 zoster vaccine, live Kwame Rod Other [facility] 01-03-2021 zoster vaccine recombinant Ladonna Solitario MD Work Phone: [facility] 01-03-2021 zoster vaccine, live Kwame Rod Other [facility] 08-08-2020 COVID-19 mRNA-1273 (Moderna) [facility] 03-31-2017 influenza virus vaccine, split virus (incl. purified surface antigen) Kwame Rod Other [facility] Other 03-31-2017 influenza virus vaccine, unspecified formulation [facility] 02-18-2017 pneumococcal conjugate vaccine, 13 valent Kwame Rod Other [facility] NEGATED: Highlighted row has not occurred! 7 pneumococcal polysaccharide vaccine, 23 valent Patient Objection Kwame Rod Other [facility] Other Payers Date Payer Category Payer Private Health Insurance [id number] 2024 Self-pay [id number] 2023 Medicare [id number] 2017 Managed Care HMO (unspecified) [employer] [id number] 2011 Medicare MEDICARE [id number] 1959 Medicare [id number] 1959 Self-pay [id number] 1959 Unknown [id number] 1959 Unknown [id number] 1946 Unknown [id number] 2.16.840.1.880081.3.579. 2.593 1946 Unknown [id number] 2.16.840.1.593219.3.579. 2.593 1946 Unknown [id number] 2.16.840.1.758181.3.579. 2.727 1946 Unknown [id number] 2.16.840.1.097333.3.579. 2.727 1946 Unknown [id number] 2.16.840.1.555623.3.579. 2.727 1946 Unknown [id number] 2.16.840.1.501036.3.579. 2.1259 1946 Unknown [id number] 2.16.840.1.022749.3.579. 2.1259 1946 Unknown [id number] 2.16.840.1.615047.3.579. 2.1259 1946 Unknown [id number] 2.16.840.1.031902.3.579. 2.1259 1946 Unknown [id number] 2.16.840.1.253853.3.579. 2.1259 1946 Unknown [id number] 2.16.840.1.930009.3.579. 2.1259 1946 Unknown [id number] 2.16.840.1.863657.3.579. 2.1259 194 Unknown [id number] 2.16.840.1.546680.3.579. 2.1259 1946 Unknown [id number] 2.16.840.1.471073.3.579. 2.1259 1946 Unknown [id number] 2.16.840.1.321949.3.579. 2.1259 Unknown [id number] 2.16.840.1.272598.3.579. 2.593 Unknown [id number] 2.16.840.1.903459.3.579. 2.593 Unknown [id number] 2.16.840.1.725020.3.579. 2.531 Unknown [id number] 2.16.840.1.245762.3.579. 2.531 Unknown [id number] 2.16.840.1.691895.3.579. 2.531 Unknown [id number] 2.16.840.1.707406.3.579. 2.531 Unknown [id number] 2.16.840.1.077086.3.579. 2.531 Unknown [id number] 2.16.840.1.153850.3.579. 2.531 Social History Date Type Detail Facility Start: 08-30-2023 End: 04-25-2024 Sex Assigned At [facility] Start: 07-04-2021 End: 04-21-2023 Tobacco smoking status NHIS Ex-smoker (finding) [facility] Start: 1945 Sex Assigned At Male [facility] Tobacco smoking status Never [facility] End: 06-21-1980 History of tobacco use Current smoker [facility] End: 06-21-1980 History of tobacco use Cigarette Smoker [facility] Start: 04-21-2023 Tobacco use and exposure Smokeless tobacco non-user [facility] Start: 08-30-2023 End: 04-25-2024 Alcoholic beverage intake Current drinker of alcohol (finding) [facility] Start: 08-30-2023 End: 04-25-2024 History of Social function [facility] Start: 04-21-2023 Alcohol Comment caffeine intak e: 3-4 cups per day [facility] Start: 1945 Sex assigned at Not on file [facility] Start: 05-08-2024 End: 09-13-2024 Sex Male (finding) [facility] Medical Equipment Procedure Code Equipment Code Equipment Origin al Text Equipment Identifier Dates Arthroplasty, knee, total, minimally invasive Orthopaedic cement, non-medicated [id number] FDA Start: 07-04-2021 Arthroplasty, knee, total, minimally invasive Uncoated knee femur prosthesis ()[id number] FDA Start: 07-04-2021 Arthroplasty, knee, total, minimally invasive Tibial insert ()[id number] FDA Start: 07-04-2021 Arthroplasty, knee, total, minimally invasive Uncoated knee tibia prosthesis, metallic ()[id number] FDA Start: 07-04-2021 Arthroplasty, knee, total, minimally invasive Polyethylene patella prosthesis ()[id number] FDA Start: 07-04-2021 Arthroplasty, hip, total, anterior [...] B/5 06/03 FITMORE UNC[employer] FDA Start: 01-28-2018 Blood [...] (Accu-Chek Guide Test Strips) strip Start: 09-06-2023 Orthopaedic bone screw, non-bioabsorbable, non-sterile ()[id number] FDA Start: 07-19-2024 Orthopaedic bone screw, non-bioabsorbable, non-sterile ()[id number] FDA Start: 07-19-2024 Orthopaedic bone screw, non-bioabsorbable, non-sterile ()[id number] FDA Start: 07-19-2024 Orthopaedic bone screw, non-bioabsorbable, non-sterile ()[id number] FDA Start: 07-19-2024 Polyethylene rev erse shoulder prosthesis cup ()[id number] FDA Start: 07-19-2024 Coated shoulder humeral stem prosthesis ()[id number] FDA Start: 07-19-2024 Reverse shoulder prosthesis head ()[id number] FDA Start: 07-19-2024 Reverse shoulder prosthesis base plate ()[id number] FDA Start: 07-19-2024 Blood Sugar Diagnostic (Accu-Chek Guide Test Strips) strip Start: 09-06-2023 Blood Sugar Diagnostic (Accu-Chek Guide Test Strips) strip Start: 09-06-2023 Blood Sugar Diagnostic (Accu-Chek Guide Test Strips) strip Start: 09-06-2023 Goals Date Patient Goal Desired Activity /State Functional Status Date Assessment Result Facility 01-21-2024 Functional Status N/A [facility] Clinical Notes 04-28-2023 to 09-07-2024 Yoli Wylie, ELECTRIC MOTOR REPAIRER - 09/07/2024 1:00 PM Beverly Scott, PT - 08/24/2024 1:30 PM Faith Scott, PT - 08/11/2024 2:00 PM EST Note Date & Type Note Facility 09-07-2024 History of Presen t illness Narrative Images from the original note were not included. Physical Therapy Physical Therapy Treatment Visit Patient Name: Lele Gaspar Today's Date: 09/07/2024 Encounter Diagnoses Name Primary? Acute postoperative pain of left shoulder Yes Status post reverse total shoulder replacement, left Visit number: 7 Time In: 12:50 pm Time Out: 1:25 pm Supervised Time: 35 min Total Time: 35 min Subjective Lele Gaspar 79 y.o. male presents to physical therapy w/ chief c/o L shoulder pain. Mechanism of Onset: s/p RTSA and viceps tenodesis 07/19/24 Current deficits: Pain, weakness, decreased ROM, decreased QOL Pain: no pain entering, compliant with HEP from which he gets sore Location: L shoulder Aggravating Factors: movement, attempted use although aware he is not to actively use UE per protocol and trying to be compliant, ADLs/self care at times Relieving factors: rest, ice, sling use Occupation: retired. Precautions: Dr specific protocol in paper chart and scanned into digital media intern in EMR system. Objective Enters in sling. Incision healing well no s/s of infection at this times. Pt elbow AROM WNL, doing better since working at it per Dr's advisement. Pt able to perform Codmans fully bent, without pain to ~90 degrees flex. Pt not quite 4 weeks today so held PROM assessment at this time. AROM/strength n/a as well. Elbow at least 3/5 MMT. (At IE) Treatment Interventions Education: HEP education with demonstration Manual Therapy:x 13 min PROM within protocol and pain free Therapeutic Exercise:x 22 min supervised per CATERINA grid, all within protocol, tends to just keep going if not stopped and moved on Modalities: declined stated he would do so at home Assessment/Plan L shoulder pain, decreased ROM, weakness causing greatly increased difficulty with ADLs/self care, decreased QOL s/p L RTSA and biceps tenodesis 6 weeks post op. Continued encouragement regarding proper protocol and progressions, reinforced not actively using shoulder. Good tolerance to session. PROM progressing well, decreased guarding today. Kept abd to 90 and IR/ER to 40 degrees per protocol, no issues. Continue as able. Follow up with ortho 09/18/24. documented in this encounter [facility] 08-24-2024 History of Presen t illness Narrative Physical Therapy Physical Therapy Treatment Visit Patient Name: Lele Gaspar Today's Date: 08/24/2024 Encounter Diagnoses Name Primary? Acute postoperative pain of left shoulder Yes Status post reverse total shoulder replacement, left Visit number: 4 Time In: 1:30 pm Time Out: 2: pm Supervised Time: 25 min Total Time: 35 min Subjective Lele Gaspar 79 y.o. male presents to physical therapy w/ chief c/o L shoulder pain. Mechanism of Onset: s/p RTSA and viceps tenodesis 07/19/24 Current deficits: Pain, weakness, decreased ROM, decreased QOL Pain: mild pain entering, reports difficulty getting pulleys going initially then going better after the first few reps. Location: L shoulder Aggravating Factors: movement, attempted use although aware he is not to actively use UE per protocol and trying to be compliant, ADLs/self care at times Relieving factors: rest, ice, sling use Occupation: retired. Precautions: Dr specific protocol in paper chart and scanned into digital media intern in EMR system. Objective Enters in sling. Incision healing well no s/s of infection at this times. Pt elbow AROM WNL, doing better since working at it per Dr's advisement. Pt able to perform Codmans fully bent, without pain to ~90 degrees flex. Pt not quite 4 weeks today so held PROM assessment at this time. AROM/strength n/a as well. Elbow at least 3/5 MMT. (At IE) Treatment Interventions Education: HEP education with demonstration Manual Therapy:x 10 min PROM within protocol and pain free Therapeutic Exercise:x 15 min sup, 20 total per CATERINA grid, all within protocol, tends to just keep going if not stopped and moved on Modalities: declined stated he would do so at home Assessment/Plan L shoulder pain, decreased ROM, weakness causing greatly increased difficulty with ADLs/self care, decreased QOL s/p L RTSA and biceps tenodesis 5 weeks post op. Continued CATERINA per grid with good effort. . VC throughout session to keep things fairly pain free and not force it. Less Guarding during manual therapy today able to get up over 125 degrees flex, kept abd to ~60 and IR/ER to ~30 degrees per protocol, no issues. Continue as able. documented in this encounter [facility] 08-11-2024 History of Presen t illness Narrative Images from the original note were not included. Physical Therapy Physical Therapy Evaluation Visit Patient Name: Lele Gaspar Today's Date: 08/11/2024 Encounter Diagnoses Name Primary? Acute postoperative pain of left shoulder Yes Status post reverse total shoulder replacement, left Visit number: 1 Subjective Lele Gaspar 79 y.o. male presents to physical therapy w/ chief c/o L shoulder pain. Mechanism of Onset: s/p RTSA and viceps tenodesis 07/19/24 Current deficits: Pain, weakness, decreased ROM, decreased QOL Pain: mild entering, mod to severe at times Location: L shoulder Aggravating Factors: movement, attempted use although aware he is not to actively use UE per protocol and trying to be compliant, ADLs/self care at times Relieving factors: rest, ice, sling use Occupation: retired. Precautions: Dr specific protocol in paper chart and scanned into digital media intern in EMR system. Objective Enters in sling. Incision healing well no s/s of infection at this times. Pt elbow AROM WNL, doing better since working at it per Dr's advisement. Pt able to perform Codmans fully bent, without pain to ~90 degrees flex. Pt not quite 4 weeks today so held PROM assessment at this time. AROM/strength n/a as well. Elbow at least 3/5 MMT. Treatment Interventions Education: HEP education with demonstration, Educated on Eval Findings and POC, protocol/precautions and importance, cold pack use x 10 min self care/home maintenance Manual Therapy: PROM within protocol and pain free (add next session) Therapeutic Exercise: per CATERINA grid x 8 min sup, advised to not actively move shoulder with codmans per protocol and keep pain free. Modalities: CP, ESU prn. MHP before session prn and once protocol allows. Declined in clinic. Assessment/Plan L shoulder pain, decreased ROM, weakness causing greatly increased difficulty with ADLs/self care, decreased QOL s/p L RTSA and biceps tenodesis Patient Goals Short Term Goal #1: pt will demo L shoulder AROM WFL all planes pain free Short Term Goal #2: pt will be able to return to full ADLs/self care Short Term Goal #3: pt will be ind with HEP for maintenance/progression prn at DC from formal PT Pt will benefit from skilled PT to address the above impairments for 2-3x/week for 12-24 weeks per protocol, pending pt needs/progress, orders at [facility]D. I hereby deem this POC medically necessary. Please sign below. 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 acute May 11, 2024 8:51am Primary osteoarthritis, left shoulder deleted May 11 024 8:51am Right upper quadrant abdominal pain noneactive June 08 024 2:03pm Controlled diabetes mellitus with hyperglycemia acute July 14, 2024 9:56am DJD (degenerative joint disease) acute July 14 9:56am Preoperative clearance acute [facility] 2024 9:56am Mass of joint of right shoulder acute July 18 9:32am 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 acute July 18 025 9:32am Primary osteoarthritis, left shoulder deleted July 18 9:32am Mass of joint of right shoulder acute August 07 9:01am 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 acute August 07, 2024 9:01am Status post reverse arthroplasty of left shoulder acute [facility]2024 9:01am Primary osteoarthritis, left shoulder deleted August 07 025 9:01am [facility] Work Phone: 1(224) 950-358911-18-2024 Evaluation note* Diagnosis Onset Date Resolution Status Admit Date Controlled diabetes mellitus with hyperglycemia acute May 08 10:58am Hypercholesteremia acute Novemb er 2023 10:58am Hypertension acute April 10:58am Mass of joint of right shoulder acut e May 11, 2024 8:51am 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 acute May 11 024 8:51am Primary osteoarthritis, left shoulder deleted May 11 8:51am [facility] Work Phone: 1(353) 946-982011-18-2024 Evaluation note* Diagnosis Onset Date Resolution Status [...] 8:51am Primary osteoarthritis, left shoulder deleted May 11 024 8:51am Right upper quadrant abdomin al pain noneactive June 08 024 2:03pm [facility] Work Phone: 1(755) 107-949211-18-2024 Evaluation note* Diagnosis Onset Date Resolution Status [...] 8:51am Primary osteoarthritis, left shoulder deleted May 11 024 8:51am Right upper quadrant abdomin al pain noneactive June 08 024 2:03pm Controlled diabetes mellitus with hyperglycemia acute July 14, 2024 9:56am DJD (degenerative joint disease) acute July 14 9:56am [facility] Work Phone: 1(600) 181-730111-18-2024 Evaluation note* Diagnosis Onset Date Resolution Status [...] 8:51am Primary osteoarthritis, left shoulder deleted May 11 024 8:51am Right upper quadrant abdomin al pain noneactive June 08 024 2:03pm Controlled diabetes mellitus with hyperglycemia acute July 14, 2024 9:56am DJD (degenerative joint disease) acute July 14 9:56am Preoperative clearance acute [facility] 24th, 2025 9:56am Mass of joint of right shoulder acut e July 18, 2024 9:32am 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 Where to find more information [employer] [place] [employer]: www.cancer.org [employer] [employer]: www.auanet.org Contact a health care [...] provider. Document Revised: 12/01/2021 Document Reviewed: 12/01/2021 [email or web address] Patient Education 2022 [employer]. Follow Up Care 11/29/2023 09:11:03 With:ZULY RIVERA, Ed Wood, URL Address: [address] [place], [place] [id number]- When: Unknown [facility] 08-02-2024 NoteUrology Office/Clinic Note Chief Complaint Referral *Elevated PSA HPI Staff Evaluation requested by Dr Kwame Rod due to elevated PSA. Pt is [...] a 78 [address] referred by Dr[address] Kwame Rod for elevated PSA. No prior prostate [...] Contact Information ZULY RIVERA, Ed Wood, URL [address] [place] [address]- Additional Instructions: 6 mos w/ PSA Patient [...] than 30 days ago (more content not included)...[facility]Result Comment: Electronically Signed By: Ed GARCIA MD\.br\Date and Time Signed: 01/21/24 10:35 EDT\.br\Electronically Co-Signed By: Lamar Rosa\.br\Date and Time Co- Signed: 01/20/2410:34 [id number] NotePatient Education Oncology Prostate Cancer Screening Prostate [...] Where to find more information ? The [place] [employer]: www.cancer.org ? [place] [employer]: www.auanet.org Contact a health care [...] front of the rectum. (more content not included)...[facility] Evaluation note* Encounter Date Diagnosis Assessment Notes Treatment Notes Treatment Clinical Notes Jun, BPH (benign prostatic hyperplasia) (ICD-10 - N40.0) [facility] Other [id number] Evaluation note* Encounter Date Diagnosis Assessment Notes [...] antigen) (ICD-10 - Z12.5) [facility] [employer] Other Chief complaint+Reason for visit Narrative* Chief Complaint Amb Documentation Left ring finger laceration med questions, urology referral Reason for Visit Laceration of left r ing finger w/o foreign body w/o damage to nail PSA elevation [facility] Work Phone: Evaluation + Plan note Future Appointments Appointment Date:07/24/2024 10:15:00 AM Scheduled Provider:Ed GARCIA MD Location:[facility] Appointment Type:URO Office Visit Diagnostic Tests Pending * PSA Total 06/21/24 [facility] evaluation noteNo InformationNort [employer] Other Evaluation note* Diagnosis Onset Date Resolution Status Laceration of left ring fing er w/o foreign body w/o damage to nail acute PSA elevation acute [facility] Work Phone: Evaluation note* Diagnosis Encounter for mastoidectomy cavity debridement, right- Primary [facility] Diagnosis Onset Date Resolution Status Admit Date Controlled diabetes mellitus with hyperglycemia acute May 08, 024 10:58am Hypercholesteremia acute Novemb er 2023 10:58am Hypertension acute April 10:58am [facility] Work Phone: Evaluation note* Diagnosis Acute postoperative pain of left shoulder- Primary Status post reverse total shoulder replacement, left [facility] Diagnosis Acute postoperative pain of left shoulder- Primary Status post reverse total shoulder replacement, left [facility]* Diagnosis Acute postoperative pain of left shoulder- Primary Status post reverse total shoulder replacement, left [facility] Diagnosis Acute postoperative pain of left shoulder- Primary Status post reverse total shoulder replacement, left documented in [facility] encounter [facility] HealthcareHistory general Narrative - Reported* Type Description Date [...] vitreous detachment, OS Hospitalization History See Above [facility] Other Hospital course Narrative No data available for this section [facility] Hospital Discharge instructionsAmbulatory Orders* Referral to Urology Time Frame: 11/23/23, Location: None Selected [facility] Work Phone: Hospital Discharge instructions Additional Instructions POSTOPERATIVE INSTRUCTIONS FOR SHOULDER ARTHROPLASTY David Real DO Orthopedic Surgeon [facility] GENERAL INSTRUCTIONS: Use Cryocuff/ice packs to the shoulder as much as you can tolerate (30 minutes on/30 minutes off) over the first 48-72 hours post-operatively. DO NOT apply ice directly to the skin. Always place a towel between the ice pack and skin. Low grade temperatures are common after surgery. Please notify the office if your temperature exceeds 101.5 degrees Fahrenheit. DO NOT make critical decisions or sign legal papers for the first 24 hours after surgery or while taking pain medication. MEDICATIONS AND DIET: You may resume all pre-operative medications unless otherwise specified. Only take pain medication as prescribed, as needed. We encourage ambulation to help prevent blood clots from developing in your legs You should take pain medication with food. It is not uncommon to have nausea or an upset stomach after surgery. Medication refills require a 48 hour notice; no exceptions will be made. NO REFILLS will be authorized over the weekend. A maximum of 4g (4,000mg) of acetaminophen can be taken within a 24 hour period. Ensure no more than this is taken in a day If you have a reaction to your medications, stop taking them and call the office immediately. If you develop a significant rash, or have trouble breathing, call 911 or go immediately to the nearest emergency room. ACTIVITY: Your operative extremity is in shoulder sling. Please wear this as all times. You may remove this for bathing purposes. You may also come out of the sling 2-3 times per day and work on gentle range of motion to your elbow. Wear the sling while sleeping at night. You are non-weightbearing on your operative arm. DRESSING/BANDAGES: Your surgical bandage may show some drainage over the first 24-48 hours following surgery. You may remove your dressing on post-operative day 7 If your bandage becomes saturated, please notify the office. You may shower 5 days after your surgery with your incision on. Ensure there is a tight seal around your dressing to make sure your incision stays dry. Once the bandage is off on post-operative day 7, you may shower if there has been no drainage from the incision for 24 hours. For showering, simply allow water to wash over the incision. Do not scrub the area. DO NOT submerge the incision in a bath, hot tub, swimming pool, or any other body of water for the first 4 weeks following surgery. Do not put any lotions or creams on the incision for the first 4-6 weeks after the surgery FOLLOW UP: Your first post-operative appointment should already be scheduled for you. If you do not already have a post-operative appointment, call the office to schedule an appointment. You should be seen in the office 10-14 days following your surgery unless otherwise specified. If you notice any increasing swelling, wound redness, or drainage, please contact our office immediately. David Real DO Orthopedic Surgeon [facility] Office: [address] [address] Office number: [phone] [facility] Work Phone: Hospital Discharge instructions No data available for this section [facility] progress note No data available for this section [facility] reason for visit Narrative* Rehabilitation - Outpatient (Routine) - Authorized Specialty Diagnoses / Procedures Referred By Damian t Referred To Contact Physical Therapy Diagnoses Presence of left artificial shoulder joint Procedures [place] PHYSICAL THERAPY EVALUATION HIGH COMPLEX 45 MINS David Real MD [facility] [place] [address] Phone: tel: fax: Sammie Scott, PT [address] [place] [address] Phone: tel: fax: Referral ID Status Reason Start Date Expiration Date Visits Requested Visits Authorized [id number] Authorized Consult and Treat 08/07/2024 02/03/2025 30 30 [facility] N[facility]* Rehabilitation - Outpatient (Routine) - Authorized Specialty Diagnoses / Procedures Referred By Contaram t Referred To Contact Physical Therapy Diagnoses Presence of left artificial shoulder joint Procedures [place] PHYSICAL THERAPY EVALUATION HIGH COMPLEX 45 MINS David Real MD [address] [place] [address] Phone: tel: fax: Sammie Scott, PT [address] [place] [address] Phone: tel: fax: Referral ID Status Reason Start Date Expiration Date Visits Requested Visits Authorized [id number] Authorized Consult and Treat 08/07/2024 06/20/2025 30 30 [facility] Summary Purpose Family History No Family History [...] shoulder May 11, 2024 8:20am CONSULT DR KWAME ROD LEFT SHOULDER PA IN NX May [...] 2024 8:51am Primary osteoarthritis, left shoulder No [email or web address] 8:51am Chief Complaint Admit Date go over medication, issue with shoulder May 08, 2024 10:58am M25.512 - Pain in left shoulder May 11, 2024 8:20am CONSULT DR KWAME ROD LEFT SHOULDER PA IN NX May [...] 2024 8:51am Primary osteoarthritis, left shoulder No [email or web address] 8:51am Right upper quadrant abdominal pain [facility] 2023 2:03pm Chief Complaint Admit Date go over medication, issue with shoulder May 08, 2024 10:58am M25.512 - Pain in left shoulder May 11, 2024 8:20am CONSULT DR KWAME ROD LEFT SHOULDER PA IN NX May 11, 2024 8:51am M19.212 May 12, 2024 11:47am Stomach Pain June 08, 2024 2:03pm Shoulder pain June 22, 2024 9: 30am clearance, left reverse total shoulder D r Jayant July 14, 2024 9:56am Reason for Visit Admit Date Controlled diabetes [...] 8:51am Right upper quadrant abdominal pain [facility] 2023 2:03pm Controlled diabetes mellitus with hyperg lycemia July 14, 2024 9:56am DJD (degenerative joint disease) July 14, 2024 9:56am Chief Complaint Admit Date go over medication, issue with shoulder May 08, 2024 10:58am M25.512 - Pain in left shoulder May 11, 2024 8:20am CONSULT DR KWAME ROD LEFT SHOULDER PA IN NX May 11, 2024 8:51am M19.212 May 12, 2024 11:47am Stomach Pain June 08, 2024 2:03pm Shoulder pain June 22, 2024 9: 30am clearance, left reverse total shoulder D r Jayant July 14, 2024 9:56am H & P LEFT REVERSE TOTAL SHOULDER ARTHRO PLASTY July 18, 2024 9:32am Reason for Visit Admit Date Controlled diabetes [...] 2023 8:51am Right upper quadrant abdominal pain [facility] 2023 2:03pm Controlled diabetes mellitus with hyperg lycemia July 14, 2024 9:56am DJD (degenerative joint disease) July 14, 2024 9:56am Preoperative clearance July 14 9:56am Mass of joint of right shoulder July 18, 2024 9:32am 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 July 18, 2024 9:32am Primary osteoarthritis, left shoulder Ja nuary 2024 9:32am Chief Complaint Admit Date go over medication, issue with shoulder May 08, 2024 10:58am M25.512 - Pain in left shoulder May 11, 2024 8:20am CONSULT DR KWAME ROD LEFT SHOULDER PA IN NX May 11, 2024 8:51am M19.212 May 12, 2024 11:47am Stomach Pain June 08, 2024 2:03pm Shoulder pain June 22, 2024 9: 30am clearance, left reverse total shoulder D r Jayant July 14, 2024 9:56am H & P LEFT REVERSE TOTAL SHOULDER ARTHRO PLASTY July 18, 2024 9:32am Shoulder pain July 19, 2024 5 :41am Shoulder pain July 19, 2024 1 0:44am Chief Complaint Admit Date M25.512 - Pain in left shoulder May 11, 2024 8:20am CONSULT DR KWAME ROD LEFT SHOULDER PA IN NX May 11, 2024 8:51am M19.212 May 12, 2024 11:47am Stomach Pain June 08, 2024 2:03pm Shoulder pain June 22, 2024 9: 30am clearance, left reverse total shoulder D r Jayant July 14, 2024 9:56am H & P LEFT REVERSE TOTAL SHOULDER ARTHRO PLASTY July 18, 2024 9:32am Shoulder pain July 19, 2024 5 :41am Shoulder pain July 19, 2024 1 0:44am Z96.612 - Presence of left artificial sh aurora landoni August 07, 2024 7:32am KAB PT 10-14 days post op August 07, 2024 9:01am Reason for Visit Admit Date Mass of joint of right shoulder May 11, 2024 8:51am 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 May 11, 2024 8:51am Primary osteoarthritis, left shoulder No vember 2023 8:51am Right upper quadrant abdominal pain [facility] 2023 2:03pm Controlled diabetes mellitus with hyperg lycemia July 14, 2024 9:56am DJD (degenerative joint disease) July 14, 2024 9:56am Preoperative clearance July 14 9:56am Mass of joint of right shoulder July 18, 2024 9:32am 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 July 18, 2024 9:32am Primary osteoarthritis, left shoulder Ja rachaelary 2024 9:32am Mass of joint of right shoulder August 07, 2024 9:01am 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 August 07, 2024 9:01am Status post reverse arthroplasty of left shoulder August 07, 2024 9:01am Primary osteoarthritis, left shoulder Fe bruary 2024 9:01am Chief Complaint Admit Date Shoulder pain June 22, 2024 9: 30am Shoulder pain July 05, 2024 7 :30am clearance, left reverse total shoulder D r Jayant July 14, 2024 9:56am H & P LEFT REVERSE TOTAL SHOULDER ARTHRO PLASTY July 18, 2024 9:32am Shoulder pain July 19, 2024 5 :41am Shoulder pain July 19, 2024 1 0:44am Z96.612 - Presence of left artificial sh ouldchloe katerine August 07, 2024 7:32am KAB PT 10-14 days post op August 07, 2024 9:01am Reason for Visit Admit Date Controlled diabetes mellitus with hyperg lycemia July 14, 2024 9:56am DJD (degenerative joint disease) July 14, 2024 9:56am Preoperative clearance July 14 9:56am Mass of joint of right shoulder July 18, 2024 9:32am 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 July 18, 2024 9:32am Primary osteoarthritis, left shoulder [facility] [place] 2024 9:32am Mass of joint of right shoulder August 07, 2024 9:01am 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 August 07, 2024 9:01am Status post reverse arthroplasty of left shoulder August 07, 2024 9:01am Primary osteoarthritis, left shoulder Fe bruary 2024 9:01am Additional Source Comments (unrecognized sect ion and content) No Status Records FoundNo Status Records FoundNo Status Records FoundNo Status Records FoundNo Status Records Found INFORMATION SOURCE (unrecogn ized section and content) DATE CREATED AUTHOR 07/12/2021 [facility] DATE CREATED AUTHOR AUTHOR'S ORGANIZ ATION 10/06/2022 [facility] DATE CREATED AUTHOR AUTHOR'S ORGANIZ ATION 08/09/2024 [facility] DATE CREATED AUTHOR AUTHOR'S ORGANIZ ATION 09/14/2024 [facility] DATE CREATED AUTHOR AUTHOR'S ORGANIZ ATION 09/15/2024 [facility] EPIC REASON FOR VISIT (unrecogniz ed section and content) Reason Comments Ear Problem Annual mastoid check Care Teams (unrecognized sec tion and content) Team Status: Active Member Role Status Dates Kwame Rod MD Primary Care Provider Active Team Status: Inactive Member Role Status Dates Kwame Rod MD Primary Care Provide r, Attending Provider Active Start: May 08, 2024 End: May 08, 2024 Team Status: Active Member Role Status Dates Kwame Rod MD Primary Care Provider Active Start: September 06, 2023 SKYLAR Baumann Attending Provider Active St art: September 06, 2023 Team Status: Active Member Role Status Dates Kwame Rod MD Primary Care Provide r, Attending Provider Active Start: November 01, 2023 Team Status: Inactive Member Role Status Dates Kwame Rod MD Primary Care Provider Active Start: November 02, 2023 End: November 02, 2023 Shiloh Real APRN Attending Provider Active Start: November 02, 2023 End: November 02, 2023 Team Status: Inactive Member Role Status Dates Kwame Rod MD Primary Care Provide r, Attending Provider Active Start: November 23, 2023 End: November 23, 2023 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 Start Date End Date Kwame Rod MD [address] [place] [address] PCP - General Family Medicine 04/21/23 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 Start Date End Date Kwame Rod MD [address] [place] [address] PCP - General Family Medicine 04/21/23 Team Status: Active Member Role Status Dates Kwame Rod MD Primary Care Provider Active Start: May 11, 2024 David Real DO Attending Provider Active St art: May 11, 2024 Team Status: Inactive Member Role Status Dates Kwame Rod MD Primary Care Provider Active Start: May 11, 2024 End: May 11, 2024 David Real DO Attending Provider Active St art: May 11, 2024 End: May 11, 2024 Team Status: Active Member Role Status Dates Kwame Rod MD Primary Care Provide r, Attending Provider Active Start: May 12, 2024 Team Status: Inactive Member Role Status Dates Kwame Rod MD Primary Care Provider Active Start: May 12, 2024 End: May 12, 2024 David Real DO Attending Provider Active St art: May 12, 2024 End: May 12, 2024 Team Status: Inactive Member Role Status Dates Kwame Rod MD Primary Care Provide r, Attending Provider Active Start: June 08, 2024 End: June 08, 2024 Team Status: Inactive Member Role Status Dates Kwame Rod MD Primary Care Provider Active Start: June 22, 2024 End: June 22, 2024 David Real DO Attending Provider Active St art: June 22, 2024 End: June 22, 2024 Team Status: Inactive Member Role Status Dates Kwame Rod MD Primary Care Provide r, Attending Provider Active Start: July 14, 2024 End: July 14, 2024 Team Status: Inactive Member Role Status Dates Kwame Rod MD Primary Care Provider Active Start: July 18, 2024 End: July 18, 2024 David Real DO Attending Provider Active St art: July 18, 2024 End: July 18, 2024 Team Status: Inactive Member Role Status Dates Kwame Rod MD Primary Care Provider Active Start: July 19, 2024 End: July 19, 2024 David Real DO Attending Provider Active St art: July 19, 2024 End: July 19, 2024 Team Status: Active Member Role Status Dates Kwame Rod MD Primary Care Provider Active Start: July 19, 2024 David Real DO Attending Provider, Other Provider Active Start: July 19, 2024 Team Status: Active Member Role Status Dates Kwame Rod MD Primary Care Provider Active Start: August 07, 2024 David Real DO Attending Provider Active St art: August 07, 2024 Team Status: Inactive Member Role Status Dates Kwame Rod MD Primary Care Provider Active Start: August 07, 2024 End: August 07, 2024 David Real DO Attending Provider Active St art: August 07, 2024 End: August 07, 2024 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 Start Date End Date Kwame Rod MD [address] [facility] [place] [phone] PCP - General Family Medicine 04/21/23 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 Start Date End Date Kwame Rod MD [address] [facility] [place] [phone] PCP - General Family Medicine 04/21/23 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 Start Date End Date Kwame Rod MD [address] [facility] [place] [phone] PCP - General Family Medicine 04/21/23 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 Start Date End Date Kwame Rod MD [address] [facility] [place] [id number] PCP - General Family Medicine 04/21/23 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 Start Date End Date Kwame Rod MD [address] [facility] [place] [phone] PCP - General Family Medicine 04/21/23 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 Start Date End Date Kwame Rod MD [address] [facility] [place] [phone] PCP - General Family Medicine 04/21/23 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 Start Date End Date Kwame Rod MD [address] [facility] [place] [phone] PCP - General Family Medicine 04/21/23 Team Status: Inactive Member Role Status Dates Kwame Rod MD Primary Care Provider Active Start: July 05, 2024 End: July 05, 2024 David Real DO Attending Provider Active St art: July 05, 2024 End: July 05, 2024 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 [employer] provides no warranty or guarantee of the accuracy or completeness of information in this document.
[2024-09-18 08:05] LABS: Prostate Specific Antigen Dx 2.82 ng/mL (<=4.00)
== END 2024-09-18 06:51 | disposition home or self-care (01) ==
LOC: LAB 06:52
PROVIDERS: PCP Family Medicine; Visit Provider Urology
DX: R97.20 Elevated prostate specific antigen [PSA] (principal)
CPT/HCPCS: 36415; 84153